=== PATIENT | male | born 1940 | race Caucasian/White ===

== ENCOUNTER 2017-12-11 08:36 | Inpatient (IN) | payer MEDICARE, MEDICAID ==
[2017-12-11] VITALS (11 sets, daily range): BP systolic 101–140; BP diastolic 50–84
[~2017-12-11] VITALS: Ht 157.5 cm; Wt 65.9 kg
[~2017-12-11 08:36] MED LIST: ALBU2.5V13 NEB; ATR0.5NEB NEB; LEVO150T8 PO; PANT40TA4 PO; SERT100T10 PO; SIMV20TA5 PO; SPIIN IH; TRAM50TA2 PO; WARF1TAB83 PO
[2017-12-11 09:19] LABS: BASOPHILS % (AUTO) 0.1 % (0-1); EOSINOPHILS # (AUTO) 0.1 X10'3 (0-0.9); EOSINOPHILS % (AUTO) 0.4 % (0-6); LYMPHOCYTES # (AUTO) 1.4 X10'3 (1.1-4.8); LYMPHOCYTES % (AUTO) 10.9 % (21-51); MEAN CORPUSCULAR HEMOGLOBIN 42.9 PG (27.0-31.0); MEAN CORPUSCULAR HGB CONC 32.6 % (33.0-36.5); MEAN CORPUSCULAR VOLUME 131.5 FL (78-98); MEAN PLATELET VOLUME 8.1 FL (7.4-10.4); MONOCYTES # (AUTO) 0.4 X10'3 (0-0.9); MONOCYTES % (AUTO) 3.1 % (2-12); NEUTROPHILS # (AUTO) 11.3 X10'3 (1.8-7.7); NEUTROPHILS % (AUTO) 85.5 % (42-75); PLATELET COUNT 353 X10'3 (140-440); RED BLOOD COUNT 1.62 X10'6 (4.70-6.10); RED CELL DISTRIBUTION WIDTH 24.8 % (11.5-14.5); WHITE BLOOD COUNT 13.2 X10'3 (4.5-11.0)
[2017-12-11 09:24] LABS: HEMATOCRIT 21.3 % (42.0-52.0); HEMOGLOBIN 6.9 g/dl (14.0-17.9)
[2017-12-11] MEDS ORDERED: normal saline 1000ML IV soln IV ONE (09:30)
[2017-12-11] MEDS ORDERED: pantoprazole IV 80 MG in normal saline 100ml IV soln 100 ML IV ONE (09:30)
[2017-12-11 09:40] LABS: ALANINE AMINOTRANSFERASE 21 U/L (12-78); ALBUMIN 2.6 G/DL (3.4-5.0); ALBUMIN/GLOBULIN RATIO 0.8 (1.1-1.5); ALKALINE PHOSPHATASE 151 IU/L (46-116); ANION GAP 17 (8-16); ASPARTATE AMINO TRANSFERASE 28 U/L (10-37); BILIRUBIN,TOTAL 1.9 MG/DL (0.1-1.0); BLOOD UREA NITROGEN 22 MG/DL (7-18); BUN/CREATININE RATIO 14.2 (5.4-32.0); CHLORIDE 106 MMOL/L (99-107); CREATININE 1.55 MG/DL (0.60-1.10); GLUCOSE 136 MG/DL (70-104); SODIUM 143 MMOL/L (135-145); TOTAL CARBON DIOXIDE 20.2 MMOL/L (24-32); TOTAL PROTEIN 5.9 G/DL (6.4-8.2); eGFR 43 ML/MIN
[2017-12-11 09:45] LABS: CALCIUM 5.7 MG/DL (8.5-10.1); POTASSIUM 2.8 MMOL/L (3.5-5.1)
[2017-12-11 09:57] LABS: NUCLEATED RED BLOOD CELLS 1 /100WBC (0-0); TOTAL CELLS COUNTED 100
[2017-12-11 10:08] LABS: ANISOCYTOSIS 3+; PLATELET ESTIMATE NORMAL; POIKILOCYTOSIS 2+; TEAR DROP CELLS 2+
[2017-12-11 10:09] LABS: ELLIPTOCYTES 1+; POLYCHROMASIA 1+; SCHISTOCYTES 2+
[2017-12-11 10:10] LABS: HYPOCHROMASIA 1+; MICROCYTOSIS 2+
[2017-12-11 10:11] LABS: TOXIC GRANULATION 1+
[2017-12-11 10:13] LABS: GIANT PLATELET FEW
[2017-12-11 10:16] LABS: PROTHROMBIN TIME 132.4 SECONDS (9.0-12.0)
[2017-12-11 10:17] LABS: INR > 9.0 INR; PARTIAL THROMBOPLASTIN TIME 89 SECONDS (22-32)
[2017-12-11] MEDS ORDERED: potassium 10mEq/100ml NS w/LIDOcaine (10mg/bag) IV ONE (10:25)
[2017-12-11] MEDS ORDERED: thiamine inj. 100 MG in normal saline 100ml IV soln 100 ML IV ONE (10:25)
[2017-12-11] MEDS: magnesium 1gm/100ml D5W IVPB 100 ML IV SCH ×2 (10:27→11:42)
[2017-12-11] MEDS: pantoprazole 40MG/NS 100ML BAG 100 ML IV SCH ×2 (10:27→10:58)
[2017-12-11] MEDS ORDERED: CefTRIAXone 2gm/D5W 50ml 50 ML IV ONE (10:55)
[2017-12-11] MEDS ORDERED: vancomycin/NS 1 GM ADD-VANTAGE 250 ML X 1 DOSE IV ONE (11:10)
[2017-12-11] MEDS ORDERED: calcium chloride 100 MG/1 ML inj IV ONE (11:20)
[2017-12-11 11:44] LABS: OCCULT BLOOD STOOL NEGATIVE (Neg)
[2017-12-11] MEDS ORDERED: calcium chloride inj. 1,000 MG in normal saline 100ml IV soln 90 ML IV ONE (11:55)
[2017-12-11] MEDS ORDERED: acetaminophen 325mg tablet PO PRN (12:30)
[2017-12-11] MEDS ORDERED: potassium Cl 40MEQ/NS 500ml 500 ML IV PRN (12:30)
[2017-12-11] MEDS ORDERED: potassium Cl 20 mEq SR tablet PO PRN (12:30)
[2017-12-11] MEDS ORDERED: magnesium 4gm in 100ml NS 100 ML IV PRN (12:30)
[2017-12-11] MEDS ORDERED: magnesium 1gm/100ml D5W IVPB 100 ML IV PRN (12:30)
[2017-12-11] MEDS: normal saline 1000ml 1,000 ML IV SCH (13:02)
[2017-12-11] MEDS: albuterol 2.5 MG/3 ML nebule NEB SCH ×2 (15:10→20:18)
[2017-12-11 17:38] LABS: BASOPHILS % (AUTO) 0 % (0-1); EOSINOPHILS % (AUTO) 0.3 % (0-6); HEMATOCRIT 25.1 % (42.0-52.0); HEMOGLOBIN 8.4 g/dl (14.0-17.9); LYMPHOCYTES # (AUTO) 1.1 X10'3 (1.1-4.8); LYMPHOCYTES % (AUTO) 11.1 % (21-51); MEAN CORPUSCULAR HEMOGLOBIN 35.4 PG (27.0-31.0); MEAN CORPUSCULAR HGB CONC 33.2 % (33.0-36.5); MEAN CORPUSCULAR VOLUME 106.7 FL (78-98); MONOCYTES # (AUTO) 0.4 X10'3 (0-0.9); MONOCYTES % (AUTO) 3.8 % (2-12); NEUTROPHILS # (AUTO) 8.3 X10'3 (1.8-7.7); NEUTROPHILS % (AUTO) 84.8 % (42-75); PLATELET COUNT 289 X10'3 (140-440); RED BLOOD COUNT 2.36 X10'6 (4.70-6.10); RED CELL DISTRIBUTION WIDTH 37.1 % (11.5-14.5); WHITE BLOOD COUNT 9.8 X10'3 (4.5-11.0)
[2017-12-11 17:44] LABS: ALBUMIN 2.4 G/DL (3.4-5.0); ANION GAP 15 (8-16); BLOOD UREA NITROGEN 17 MG/DL (7-18); BUN/CREATININE RATIO 11.4 (5.4-32.0); CALCIUM 6.3 MG/DL (8.5-10.1); CHLORIDE 112 MMOL/L (99-107); CREATININE 1.49 MG/DL (0.60-1.10); GLUCOSE 122 MG/DL (70-104); MAGNESIUM 1.3 MG/DL (1.5-2.4); SODIUM 149 MMOL/L (135-145); TOTAL CARBON DIOXIDE 22.1 MMOL/L (24-32); eGFR 45 ML/MIN
[2017-12-11 17:46] LABS: POTASSIUM 2.7 MMOL/L (3.5-5.1)
[2017-12-11 18:47] LABS: ANISOCYTOSIS 3+; PLATELET ESTIMATE NORMAL
[2017-12-11 18:49] LABS: BURR CELLS FEW; SCHISTOCYTES 1+
[2017-12-11 18:52] LABS: TARGET CELLS FEW
[2017-12-11 18:53] LABS: ELLIPTOCYTES 1+
[2017-12-11 18:57] LABS: HYPOCHROMASIA 1+; POLYCHROMASIA FEW
[2017-12-11 18:58] LABS: MICROCYTOSIS 2+
[2017-12-11 18:59] LABS: POIKILOCYTOSIS 2+
[2017-12-11] MEDS: potassium Cl 40MEQ/NS 500ml 500 ML IV PRN (19:03)
[2017-12-11] MEDS ORDERED: temazepam 15mg capsule PO PRN (21:00)
[2017-12-11] MEDS: sertraline 50mg tablet PO SCH (21:16)
[2017-12-11] MEDS: ondansetron/PF 4mg/2ml inj IV PRN (23:41)
[2017-12-11] MEDS: magnesium Cl slow-release 64mg tablet PO PRN (23:41)
[2017-12-12] MEDS: albuterol 2.5 MG/3 ML nebule NEB SCH ×4 (02:39→20:40)
[2017-12-12 03:00] VITALS: BP 108/44
[2017-12-12 05:15] LABS: BASOPHILS % (AUTO) 0.2 % (0-1); EOSINOPHILS # (AUTO) 0.1 X10'3 (0-0.9); EOSINOPHILS % (AUTO) 0.7 % (0-6); HEMATOCRIT 26.4 % (42.0-52.0); HEMOGLOBIN 8.8 g/dl (14.0-17.9); LYMPHOCYTES # (AUTO) 1.4 X10'3 (1.1-4.8); LYMPHOCYTES % (AUTO) 13.5 % (21-51); MEAN CORPUSCULAR HEMOGLOBIN 35.7 PG (27.0-31.0); MEAN CORPUSCULAR HGB CONC 33.2 % (33.0-36.5); MEAN CORPUSCULAR VOLUME 107.7 FL (78-98); MEAN PLATELET VOLUME 7.9 FL (7.4-10.4); MONOCYTES # (AUTO) 0.4 X10'3 (0-0.9); MONOCYTES % (AUTO) 3.3 % (2-12); NEUTROPHILS # (AUTO) 8.7 X10'3 (1.8-7.7); NEUTROPHILS % (AUTO) 82.3 % (42-75); PLATELET COUNT 292 X10'3 (140-440); RED BLOOD COUNT 2.45 X10'6 (4.70-6.10); RED CELL DISTRIBUTION WIDTH 38.1 % (11.5-14.5); WHITE BLOOD COUNT 10.5 X10'3 (4.5-11.0)
[2017-12-12 05:29] LABS: INR 3.3 INR; PROTHROMBIN TIME 31.7 SECONDS (9.0-12.0)
[2017-12-12 05:48] LABS: ALANINE AMINOTRANSFERASE 23 U/L (12-78); ALBUMIN 2.5 G/DL (3.4-5.0); ALBUMIN/GLOBULIN RATIO 0.8 (1.1-1.5); ALKALINE PHOSPHATASE 138 IU/L (46-116); ANION GAP 17 (8-16); ASPARTATE AMINO TRANSFERASE 29 U/L (10-37); BILIRUBIN,TOTAL 1.3 MG/DL (0.1-1.0); BLOOD UREA NITROGEN 16 MG/DL (7-18); BUN/CREATININE RATIO 10.7 (5.4-32.0); CALCIUM 6.3 MG/DL (8.5-10.1); CHLORIDE 114 MMOL/L (99-107); GLUCOSE 118 MG/DL (70-104); MAGNESIUM 1.3 MG/DL (1.5-2.4); SODIUM 150 MMOL/L (135-145); TOTAL CARBON DIOXIDE 19.1 MMOL/L (24-32); TOTAL PROTEIN 5.7 G/DL (6.4-8.2); eGFR 45 ML/MIN
[2017-12-12 05:51] LABS: POTASSIUM 2.7 MMOL/L (3.5-5.1)
[2017-12-12] MEDS: magnesium Cl slow-release 64mg tablet PO PRN ×2 (06:02→10:24)
[2017-12-12] MEDS: potassium Cl 20 mEq SR tablet PO PRN ×2 (06:02→10:24)
[2017-12-12 07:30] LABS: PLATELET ESTIMATE NORMAL
[2017-12-12 07:31] LABS: ANISOCYTOSIS 3+; POIKILOCYTOSIS FEW; POLYCHROMASIA 2+; TEAR DROP CELLS FEW
[2017-12-12] MEDS: K and/or MAG REPLACEMENT MC SCH (08:00)
[2017-12-12] MEDS: normal saline 1000ml 1,000 ML IV SCH (08:07)
[2017-12-12] MEDS: CefTRIAXone 2gm/D5W 50ml 50 ML IV SCH (08:41)
[2017-12-12] MEDS: pantoprazole 40 MG vial IV SCH (08:41)
[2017-12-12] MEDS ORDERED: pneumococcal 23-VAL P-sac vacc 25 mcg/0.5ml vial IMVAC ONE (10:00)
[2017-12-12 11:00] VITALS: BP 118/64
[2017-12-12] MEDS: sodium chloride 0.45% 1,000 ML IV SCH (13:10)
[2017-12-12] MEDS: ondansetron/PF 4mg/2ml inj IV PRN ×2 (13:58→20:00)
[2017-12-12] MEDS: potassium Cl 40MEQ/NS 500ml 500 ML IV PRN ×2 (14:06→19:45)
[2017-12-12 15:26] LABS: BASOPHILS % (AUTO) 0.3 % (0-1); EOSINOPHILS # (AUTO) 0.1 X10'3 (0-0.9); EOSINOPHILS % (AUTO) 0.7 % (0-6); HEMATOCRIT 26.7 % (42.0-52.0); HEMOGLOBIN 8.9 g/dl (14.0-17.9); LYMPHOCYTES # (AUTO) 1.2 X10'3 (1.1-4.8); LYMPHOCYTES % (AUTO) 11.3 % (21-51); MEAN CORPUSCULAR HEMOGLOBIN 36.1 PG (27.0-31.0); MEAN CORPUSCULAR HGB CONC 33.4 % (33.0-36.5); MEAN CORPUSCULAR VOLUME 108.1 FL (78-98); MEAN PLATELET VOLUME 8.1 FL (7.4-10.4); MONOCYTES # (AUTO) 0.3 X10'3 (0-0.9); MONOCYTES % (AUTO) 3.3 % (2-12); NEUTROPHILS # (AUTO) 8.7 X10'3 (1.8-7.7); NEUTROPHILS % (AUTO) 84.4 % (42-75); PLATELET COUNT 310 X10'3 (140-440); RED BLOOD COUNT 2.47 X10'6 (4.70-6.10); RED CELL DISTRIBUTION WIDTH 38.8 % (11.5-14.5); WHITE BLOOD COUNT 10.3 X10'3 (4.5-11.0)
[2017-12-12 15:48] LABS: PLATELET ESTIMATE NORMAL; TOTAL CELLS COUNTED 100
[2017-12-12 15:49] LABS: ANISOCYTOSIS 3+; BURR CELLS FEW; ELLIPTOCYTES FEW; POLYCHROMASIA 1+; SCHISTOCYTES FEW
[2017-12-12 16:22] VITALS: BP 135/63
[2017-12-12 19:00] VITALS: BP 136/71
[2017-12-12] MEDS: lactobacillus rhamnosus 10,000 MMU CELLS/CAPSULE PO SCH (21:14)
[2017-12-12] MEDS: sertraline 50mg tablet PO SCH (21:14)
[2017-12-12 21:55] LABS: MAGNESIUM 1.3 MG/DL (1.5-2.4)
[2017-12-12 22:07] LABS: POTASSIUM 3.6 MMOL/L (3.5-5.1)
[2017-12-12 23:00] VITALS: BP 129/76
[2017-12-13] MEDS: albuterol 2.5 MG/3 ML nebule NEB SCH ×4 (02:38→21:05)
[2017-12-13 03:00] VITALS: BP 184/99
[2017-12-13] MEDS: sodium chloride 0.45% 1,000 ML IV SCH ×2 (03:03→17:50)
[2017-12-13 06:00] VITALS: BP 168/89
[2017-12-13 06:00] LABS: BASOPHILS % (AUTO) 0.3 % (0-1); EOSINOPHILS # (AUTO) 0.1 X10'3 (0-0.9); EOSINOPHILS % (AUTO) 0.7 % (0-6); HEMATOCRIT 27.5 % (42.0-52.0); HEMOGLOBIN 9.1 g/dl (14.0-17.9); LYMPHOCYTES # (AUTO) 1.4 X10'3 (1.1-4.8); LYMPHOCYTES % (AUTO) 13.7 % (21-51); MEAN CORPUSCULAR HEMOGLOBIN 35.7 PG (27.0-31.0); MEAN CORPUSCULAR VOLUME 108.1 FL (78-98); MEAN PLATELET VOLUME 8.1 FL (7.4-10.4); MONOCYTES # (AUTO) 0.3 X10'3 (0-0.9); MONOCYTES % (AUTO) 3.5 % (2-12); NEUTROPHILS # (AUTO) 8.2 X10'3 (1.8-7.7); NEUTROPHILS % (AUTO) 81.8 % (42-75); PLATELET COUNT 310 X10'3 (140-440); RED BLOOD COUNT 2.55 X10'6 (4.70-6.10); RED CELL DISTRIBUTION WIDTH 38.5 % (11.5-14.5)
[2017-12-13 06:36] LABS: ALANINE AMINOTRANSFERASE 18 U/L (12-78); ALBUMIN 2.5 G/DL (3.4-5.0); ALBUMIN/GLOBULIN RATIO 0.7 (1.1-1.5); ALKALINE PHOSPHATASE 139 IU/L (46-116); ANION GAP 14 (8-16); ASPARTATE AMINO TRANSFERASE 25 U/L (10-37); BLOOD UREA NITROGEN 13 MG/DL (7-18); BUN/CREATININE RATIO 10.2 (5.4-32.0); CALCIUM 7.4 MG/DL (8.5-10.1); CHLORIDE 120 MMOL/L (99-107); CREATININE 1.28 MG/DL (0.60-1.10); GLUCOSE 93 MG/DL (70-104); INR 2.3 INR; MAGNESIUM 1.4 MG/DL (1.5-2.4); POTASSIUM 3.9 MMOL/L (3.5-5.1); SODIUM 152 MMOL/L (135-145); TOTAL CARBON DIOXIDE 18.5 MMOL/L (24-32); TOTAL PROTEIN 5.9 G/DL (6.4-8.2); eGFR 54 ML/MIN
[2017-12-13] MEDS: K and/or MAG REPLACEMENT MC SCH (08:00)
[2017-12-13 08:12] LABS: ANISOCYTOSIS 3+; HYPERSEGMENTED NEUTROPHILS FEW; NUCLEATED RED BLOOD CELLS 1 /100WBC (0-0); PLATELET ESTIMATE NORMAL; TOTAL CELLS COUNTED 100
[2017-12-13 08:13] LABS: BURR CELLS 1+; ELLIPTOCYTES 1+; POLYCHROMASIA 1+; SCHISTOCYTES FEW; TOXIC GRANULATION 3+
[2017-12-13] MEDS: CefTRIAXone 2gm/D5W 50ml 50 ML IV SCH (08:41)
[2017-12-13] MEDS: pantoprazole 40 MG vial IV SCH (08:41)
[2017-12-13] MEDS: lactobacillus rhamnosus 10,000 MMU CELLS/CAPSULE PO SCH ×2 (08:42→21:18)
[2017-12-13] MEDS: magnesium Cl slow-release 64mg tablet PO PRN ×2 (10:57→21:18)
[2017-12-13 15:00] VITALS: BP_SYST 120; BP_SYST 121; BP_DIAS 61; BP_DIAS 69
[2017-12-13 16:06] LABS: BASOPHILS % (AUTO) 0.2 % (0-1); EOSINOPHILS # (AUTO) 0.2 X10'3 (0-0.9); EOSINOPHILS % (AUTO) 2.2 % (0-6); HEMOGLOBIN 8.5 g/dl (14.0-17.9); LYMPHOCYTES # (AUTO) 1.4 X10'3 (1.1-4.8); LYMPHOCYTES % (AUTO) 15.1 % (21-51); MEAN CORPUSCULAR HEMOGLOBIN 35.1 PG (27.0-31.0); MEAN CORPUSCULAR HGB CONC 32.5 % (33.0-36.5); MEAN CORPUSCULAR VOLUME 108.2 FL (78-98); MEAN PLATELET VOLUME 7.8 FL (7.4-10.4); MONOCYTES # (AUTO) 0.3 X10'3 (0-0.9); MONOCYTES % (AUTO) 2.8 % (2-12); NEUTROPHILS # (AUTO) 7.3 X10'3 (1.8-7.7); NEUTROPHILS % (AUTO) 79.7 % (42-75); PLATELET COUNT 307 X10'3 (140-440); RED BLOOD COUNT 2.41 X10'6 (4.70-6.10); RED CELL DISTRIBUTION WIDTH 38.4 % (11.5-14.5); WHITE BLOOD COUNT 9.1 X10'3 (4.5-11.0)
[2017-12-13 19:00] VITALS: BP 131/64
[2017-12-13] MEDS: diatr meglu/diatrizoate 30ml oral sol.-(3 dose) bottle PO SCH (21:18)
[2017-12-13] MEDS: sertraline 50mg tablet PO SCH (21:18)
[2017-12-13 22:56] VITALS: BP 144/77
[2017-12-14] MEDS: albuterol 2.5 MG/3 ML nebule NEB SCH ×4 (02:00→20:22)
[2017-12-14 03:00] VITALS: BP 121/65
[2017-12-14 06:00] VITALS: BP 110/71
[2017-12-14] MEDS: CefTRIAXone 2gm/D5W 50ml 50 ML IV SCH (07:07)
[2017-12-14] MEDS: diatr meglu/diatrizoate 30ml oral sol.-(3 dose) bottle PO SCH ×2 (07:09→09:37)
[2017-12-14] MEDS: pantoprazole 40mg Tablet.DR PO SCH (07:11)
[2017-12-14] MEDS: lactobacillus rhamnosus 10,000 MMU CELLS/CAPSULE PO SCH ×2 (07:11→20:43)
[2017-12-14] MEDS: K and/or MAG REPLACEMENT MC SCH (07:21)
[2017-12-14 07:59] LABS: BASOPHILS % (AUTO) 0.1 % (0-1); EOSINOPHILS # (AUTO) 0.2 X10'3 (0-0.9); EOSINOPHILS % (AUTO) 2.5 % (0-6); HEMATOCRIT 29.2 % (42.0-52.0); HEMOGLOBIN 9.7 g/dl (14.0-17.9); LYMPHOCYTES # (AUTO) 1.7 X10'3 (1.1-4.8); LYMPHOCYTES % (AUTO) 17.4 % (21-51); MEAN CORPUSCULAR HEMOGLOBIN 36.3 PG (27.0-31.0); MEAN CORPUSCULAR HGB CONC 33.2 % (33.0-36.5); MEAN CORPUSCULAR VOLUME 109.1 FL (78-98); MONOCYTES # (AUTO) 0.3 X10'3 (0-0.9); NEUTROPHILS # (AUTO) 7.4 X10'3 (1.8-7.7); PLATELET COUNT 329 X10'3 (140-440); RED BLOOD COUNT 2.68 X10'6 (4.70-6.10); RED CELL DISTRIBUTION WIDTH 38.1 % (11.5-14.5); WHITE BLOOD COUNT 9.6 X10'3 (4.5-11.0)
[2017-12-14 08:14] LABS: ALANINE AMINOTRANSFERASE 22 U/L (12-78); ALBUMIN 2.5 G/DL (3.4-5.0); ALBUMIN/GLOBULIN RATIO 0.7 (1.1-1.5); ALKALINE PHOSPHATASE 143 IU/L (46-116); ANION GAP 12 (8-16); ASPARTATE AMINO TRANSFERASE 23 U/L (10-37); BLOOD UREA NITROGEN 8 MG/DL (7-18); BUN/CREATININE RATIO 7.3 (5.4-32.0); CALCIUM 7.4 MG/DL (8.5-10.1); CHLORIDE 114 MMOL/L (99-107); CREATININE 1.09 MG/DL (0.60-1.10); GLUCOSE 91 MG/DL (70-104); MAGNESIUM 1.3 MG/DL (1.5-2.4); SODIUM 147 MMOL/L (135-145); TOTAL CARBON DIOXIDE 20.6 MMOL/L (24-32); TOTAL PROTEIN 5.9 G/DL (6.4-8.2); eGFR 65 ML/MIN
[2017-12-14 08:56] LABS: INR 1.7 INR; PROTHROMBIN TIME 17.2 SECONDS (9.0-12.0)
[2017-12-14 09:14] LABS: ANISOCYTOSIS 3+; PLATELET ESTIMATE NORMAL; TOTAL CELLS COUNTED 100
[2017-12-14 09:15] LABS: POIKILOCYTOSIS 1+; POLYCHROMASIA FEW; SCHISTOCYTES FEW
[2017-12-14] MEDS: magnesium Cl slow-release 64mg tablet PO PRN (09:22)
[2017-12-14] MEDS: sodium chloride 0.45% 1,000 ML IV SCH ×2 (09:26→22:22)
[2017-12-14] MEDS ORDERED: iohexol 300mg/ml 100ml inj. ONE (09:36)
[2017-12-14] MEDS: LIDOcaine 1% 30ml vial 5 ML in potassium Cl 40MEQ/NS 500ml 500 ML IV PRN ×2 (10:56→14:55)
[2017-12-14 11:00] VITALS: BP 131/94
[2017-12-14 15:00] VITALS: BP 127/85
[2017-12-14 19:00] VITALS: BP 120/90
[2017-12-14] MEDS: sertraline 50mg tablet PO SCH (20:39)
[2017-12-14] MEDS ORDERED: warfarin 7.5mg tablet PO ONE (21:00)
[2017-12-14 23:00] VITALS: BP 126/72
[2017-12-15] MEDS: albuterol 2.5 MG/3 ML nebule NEB SCH ×4 (02:00→20:00)
[2017-12-15 03:00] VITALS: BP 147/84
[2017-12-15 06:43] VITALS: BP 148/83
[2017-12-15] MEDS: pantoprazole 40mg Tablet.DR PO SCH (07:13)
[2017-12-15] MEDS: lactobacillus rhamnosus 10,000 MMU CELLS/CAPSULE PO SCH ×2 (07:13→21:02)
[2017-12-15] MEDS: CefTRIAXone 2gm/D5W 50ml 50 ML IV SCH (07:13)
[2017-12-15 07:17] LABS: INR 1.6 INR; PROTHROMBIN TIME 15.4 SECONDS (9.0-12.0)
[2017-12-15] MEDS: K and/or MAG REPLACEMENT MC SCH (08:00)
[2017-12-15 08:16] LABS: ANION GAP 13 (8-16); BLOOD UREA NITROGEN 7 MG/DL (7-18); BUN/CREATININE RATIO 7.5 (5.4-32.0); CHLORIDE 116 MMOL/L (99-107); CREATININE 0.93 MG/DL (0.60-1.10); GLUCOSE 90 MG/DL (70-104); POTASSIUM 3.3 MMOL/L (3.5-5.1); SODIUM 147 MMOL/L (135-145); TOTAL CARBON DIOXIDE 17.6 MMOL/L (24-32)
[2017-12-15 08:17] LABS: ALANINE AMINOTRANSFERASE 19 U/L (12-78); ALBUMIN 2.5 G/DL (3.4-5.0); ALBUMIN/GLOBULIN RATIO 0.8 (1.1-1.5); ALKALINE PHOSPHATASE 135 IU/L (46-116); ASPARTATE AMINO TRANSFERASE 22 U/L (10-37); BILIRUBIN,TOTAL 1.1 MG/DL (0.1-1.0); CALCIUM 7.4 MG/DL (8.5-10.1); MAGNESIUM 1.4 MG/DL (1.5-2.4); TOTAL PROTEIN 5.7 G/DL (6.4-8.2); eGFR 78 ML/MIN
[2017-12-15] MEDS ORDERED: potassium Cl 20 mEq SR tablet PO PRN (08:30)
[2017-12-15] MEDS ORDERED: potassium Cl 40MEQ/NS 500ml 500 ML IV PRN ×2 (08:30)
[2017-12-15] MEDS ORDERED: magnesium 4gm in 100ml NS 100 ML IV PRN (08:30)
[2017-12-15] MEDS ORDERED: magnesium 1gm/100ml D5W IVPB 100 ML IV PRN (08:30)
[2017-12-15] MEDS: magnesium Cl slow-release 64mg tablet PO PRN (09:02)
[2017-12-15 11:00] VITALS: BP 98/67
[2017-12-15] MEDS: metoclopramide 10mg tablet PO SCH ×3 (12:25→21:03)
[2017-12-15] MEDS: sodium chloride 0.45% 1,000 ML IV SCH (12:53)
[2017-12-15] MEDS ORDERED: WARF-65 PO (14:38)
[2017-12-15] MEDS: sodium bicarbonate (8.4%) inj. 50 MEQ in dextrose 5%-water 1,000 ML IV SCH (14:42)
[2017-12-15 15:00] VITALS: BP 114/72
[2017-12-15 19:00] VITALS: BP 153/97
[2017-12-15] MEDS ORDERED: warfarin 5mg tablet PO ONE (21:00)
[2017-12-15] MEDS: sertraline 50mg tablet PO SCH (21:03)
[2017-12-15 23:00] VITALS: BP 145/88
[2017-12-16] MEDS: albuterol 2.5 MG/3 ML nebule NEB SCH ×4 (02:00→20:00)
[2017-12-16] MEDS: sodium bicarbonate (8.4%) inj. 50 MEQ in dextrose 5%-water 1,000 ML IV SCH ×3 (02:03→22:18)
[2017-12-16] MEDS: magnesium Cl slow-release 64mg tablet PO PRN ×3 (02:27→22:20)
[2017-12-16 03:00] VITALS: BP 151/82
[2017-12-16 06:00] VITALS: BP 159/82
[2017-12-16 06:13] LABS: BASOPHILS % (AUTO) 0 % (0-1); EOSINOPHILS # (AUTO) 0.3 X10'3 (0-0.9); EOSINOPHILS % (AUTO) 3.1 % (0-6); HEMATOCRIT 26.7 % (42.0-52.0); HEMOGLOBIN 8.7 g/dl (14.0-17.9); LYMPHOCYTES # (AUTO) 1.2 X10'3 (1.1-4.8); MEAN CORPUSCULAR HEMOGLOBIN 35.2 PG (27.0-31.0); MEAN CORPUSCULAR HGB CONC 32.7 % (33.0-36.5); MEAN CORPUSCULAR VOLUME 107.7 FL (78-98); MEAN PLATELET VOLUME 7.9 FL (7.4-10.4); MONOCYTES # (AUTO) 0.3 X10'3 (0-0.9); MONOCYTES % (AUTO) 2.8 % (2-12); NEUTROPHILS # (AUTO) 8.9 X10'3 (1.8-7.7); NEUTROPHILS % (AUTO) 83.1 % (42-75); PLATELET COUNT 312 X10'3 (140-440); RED BLOOD COUNT 2.48 X10'6 (4.70-6.10); RED CELL DISTRIBUTION WIDTH 37.3 % (11.5-14.5); WHITE BLOOD COUNT 10.7 X10'3 (4.5-11.0)
[2017-12-16 06:38] LABS: INR 2.8 INR; PROTHROMBIN TIME 26.9 SECONDS (9.0-12.0)
[2017-12-16 06:40] LABS: ANISOCYTOSIS 3+; MICROCYTOSIS 1+; PLATELET ESTIMATE NORMAL
[2017-12-16 06:41] LABS: POLYCHROMASIA 1+
[2017-12-16 06:51] LABS: ALANINE AMINOTRANSFERASE 20 U/L (12-78); ALBUMIN 2.4 G/DL (3.4-5.0); ALBUMIN/GLOBULIN RATIO 0.8 (1.1-1.5); ALKALINE PHOSPHATASE 126 IU/L (46-116); ANION GAP 11 (8-16); ASPARTATE AMINO TRANSFERASE 20 U/L (10-37); BILIRUBIN,TOTAL 0.8 MG/DL (0.1-1.0); BLOOD UREA NITROGEN 6 MG/DL (7-18); BUN/CREATININE RATIO 6.3 (5.4-32.0); CALCIUM 7.6 MG/DL (8.5-10.1); CHLORIDE 113 MMOL/L (99-107); CREATININE 0.95 MG/DL (0.60-1.10); GLUCOSE 97 MG/DL (70-104); MAGNESIUM 1.3 MG/DL (1.5-2.4); POTASSIUM 3.1 MMOL/L (3.5-5.1); SODIUM 142 MMOL/L (135-145); TOTAL CARBON DIOXIDE 17.8 MMOL/L (24-32); TOTAL PROTEIN 5.4 G/DL (6.4-8.2); eGFR 76 ML/MIN
[2017-12-16] MEDS: K and/or MAG REPLACEMENT MC SCH (07:03)
[2017-12-16] MEDS: CefTRIAXone 2gm/D5W 50ml 50 ML IV SCH (07:24)
[2017-12-16] MEDS: potassium Cl 20 mEq SR tablet PO PRN ×2 (07:24→22:20)
[2017-12-16] MEDS: lactobacillus rhamnosus 10,000 MMU CELLS/CAPSULE PO SCH ×2 (07:24→22:20)
[2017-12-16] MEDS: metoclopramide 10mg tablet PO SCH ×4 (07:24→22:18)
[2017-12-16] MEDS: pantoprazole 40mg Tablet.DR PO SCH (07:25)
[2017-12-16] MEDS: magnesium oxide 400mg tablet PO SCH ×2 (08:45→22:21)
[2017-12-16] MEDS: potassium Cl 20 mEq SR tablet PO SCH ×2 (08:45→17:14)
[2017-12-16 11:00] VITALS: BP 126/72
[2017-12-16 15:00] VITALS: BP 142/75
[2017-12-16 19:00] VITALS: BP 118/74
[2017-12-16] MEDS: sertraline 50mg tablet PO SCH (22:20)
[2017-12-16 23:00] VITALS: BP 117/76
[2017-12-17] MEDS: albuterol 2.5 MG/3 ML nebule NEB SCH ×2 (02:00→07:45)
[2017-12-17 03:00] VITALS: BP 144/78
[2017-12-17 05:58] LABS: BASOPHILS % (AUTO) 0.1 % (0-1); EOSINOPHILS # (AUTO) 0.2 X10'3 (0-0.9); EOSINOPHILS % (AUTO) 1.4 % (0-6); HEMATOCRIT 26.6 % (42.0-52.0); HEMOGLOBIN 8.9 g/dl (14.0-17.9); LYMPHOCYTES # (AUTO) 1.2 X10'3 (1.1-4.8); LYMPHOCYTES % (AUTO) 9.3 % (21-51); MEAN CORPUSCULAR HGB CONC 33.4 % (33.0-36.5); MEAN CORPUSCULAR VOLUME 107.6 FL (78-98); MEAN PLATELET VOLUME 8.2 FL (7.4-10.4); MONOCYTES # (AUTO) 0.3 X10'3 (0-0.9); MONOCYTES % (AUTO) 2.1 % (2-12); NEUTROPHILS # (AUTO) 11.2 X10'3 (1.8-7.7); NEUTROPHILS % (AUTO) 87.1 % (42-75); PLATELET COUNT 327 X10'3 (140-440); RED BLOOD COUNT 2.47 X10'6 (4.70-6.10); RED CELL DISTRIBUTION WIDTH 36.6 % (11.5-14.5); WHITE BLOOD COUNT 12.8 X10'3 (4.5-11.0)
[2017-12-17 06:17] LABS: PROTHROMBIN TIME 38.1 SECONDS (9.0-12.0)
[2017-12-17 06:50] LABS: PLATELET ESTIMATE NORMAL
[2017-12-17 06:51] LABS: ANISOCYTOSIS 3+; HYPOCHROMASIA 1+; MICROCYTOSIS 1+; SCHISTOCYTES 1+
[2017-12-17 07:00] VITALS: BP 133/68
[2017-12-17] MEDS: metoclopramide 10mg tablet PO SCH (08:17)
[2017-12-17] MEDS: potassium Cl 20 mEq SR tablet PO SCH ×2 (08:17→17:47)
[2017-12-17] MEDS: sodium bicarbonate (8.4%) inj. 50 MEQ in dextrose 5%-water 1,000 ML IV SCH ×2 (08:17→19:00)
[2017-12-17] MEDS: K and/or MAG REPLACEMENT MC SCH (08:18)
[2017-12-17] MEDS: magnesium oxide 400mg tablet PO SCH ×2 (08:18→20:15)
[2017-12-17] MEDS: CefTRIAXone 2gm/D5W 50ml 50 ML IV SCH (08:18)
[2017-12-17] MEDS: pantoprazole 40mg Tablet.DR PO SCH (08:18)
[2017-12-17] MEDS: lactobacillus rhamnosus 10,000 MMU CELLS/CAPSULE PO SCH ×2 (08:18→20:25)
[2017-12-17] MEDS ORDERED: albuterol 2.5 MG/3 ML nebule NEB PRN (09:50)
[2017-12-17 11:00] VITALS: BP 117/65
[2017-12-17 15:00] VITALS: BP 131/67
[2017-12-17] MEDS: magnesium Cl slow-release 64mg tablet PO PRN (16:24)
[2017-12-17] MEDS: potassium Cl 20 mEq SR tablet PO PRN (16:24)
[2017-12-17 19:00] VITALS: BP 141/79
[2017-12-17] MEDS: sertraline 50mg tablet PO SCH (20:25)
[2017-12-17 23:00] VITALS: BP 144/79
[2017-12-18 03:00] VITALS: BP 122/78
[2017-12-18] MEDS: sodium bicarbonate (8.4%) inj. 50 MEQ in dextrose 5%-water 1,000 ML IV SCH ×2 (05:28→15:40)
[2017-12-18 05:56] LABS: BASOPHILS % (AUTO) 0.4 % (0-1); EOSINOPHILS # (AUTO) 0.2 X10'3 (0-0.9); EOSINOPHILS % (AUTO) 1.9 % (0-6); HEMATOCRIT 25.7 % (42.0-52.0); HEMOGLOBIN 8.6 g/dl (14.0-17.9); LYMPHOCYTES # (AUTO) 1.4 X10'3 (1.1-4.8); LYMPHOCYTES % (AUTO) 11.9 % (21-51); MEAN CORPUSCULAR HEMOGLOBIN 36.2 PG (27.0-31.0); MEAN CORPUSCULAR HGB CONC 33.4 % (33.0-36.5); MEAN CORPUSCULAR VOLUME 108.4 FL (78-98); MEAN PLATELET VOLUME 8.6 FL (7.4-10.4); MONOCYTES # (AUTO) 0.2 X10'3 (0-0.9); MONOCYTES % (AUTO) 1.6 % (2-12); NEUTROPHILS % (AUTO) 84.2 % (42-75); PLATELET COUNT 328 X10'3 (140-440); RED BLOOD COUNT 2.37 X10'6 (4.70-6.10); RED CELL DISTRIBUTION WIDTH 36.8 % (11.5-14.5); WHITE BLOOD COUNT 11.9 X10'3 (4.5-11.0)
[2017-12-18 06:00] VITALS: BP 131/70
[2017-12-18 06:02] LABS: INR 3.3 INR; PROTHROMBIN TIME 31.2 SECONDS (9.0-12.0)
[2017-12-18 07:47] LABS: ANISOCYTOSIS 3+; PLATELET ESTIMATE NORMAL
[2017-12-18 07:48] LABS: POLYCHROMASIA 1+
[2017-12-18 07:49] LABS: MICROCYTOSIS 1+; TEAR DROP CELLS FEW
[2017-12-18 07:50] LABS: SCHISTOCYTES 1+
[2017-12-18] MEDS: potassium Cl 20 mEq SR tablet PO SCH ×2 (07:51→17:18)
[2017-12-18] MEDS: magnesium oxide 400mg tablet PO SCH ×2 (07:51→21:14)
[2017-12-18] MEDS: pantoprazole 40mg Tablet.DR PO SCH (07:51)
[2017-12-18] MEDS: lactobacillus rhamnosus 10,000 MMU CELLS/CAPSULE PO SCH ×2 (07:51→21:14)
[2017-12-18] MEDS: CefTRIAXone 2gm/D5W 50ml 50 ML IV SCH (07:51)
[2017-12-18] MEDS: K and/or MAG REPLACEMENT MC SCH (08:00)
[2017-12-18 11:00] VITALS: BP 138/78
[2017-12-18] MEDS ORDERED: magnesium 1gm/100ml D5W IVPB 100 ML IV PRN (12:35)
[2017-12-18] MEDS ORDERED: magnesium 4gm in 100ml NS 100 ML IV PRN (12:35)
[2017-12-18] MEDS ORDERED: potassium Cl 40MEQ/NS 500ml 500 ML IV PRN ×2 (12:35)
[2017-12-18] MEDS ORDERED: potassium Cl 20 mEq SR tablet PO PRN (12:35)
[2017-12-18] MEDS ORDERED: magnesium Cl slow-release 64mg tablet PO PRN (12:35)
[2017-12-18 13:28] LABS: ALANINE AMINOTRANSFERASE 19 U/L (12-78); ALBUMIN 2.1 G/DL (3.4-5.0); ALBUMIN/GLOBULIN RATIO 0.7 (1.1-1.5); ALKALINE PHOSPHATASE 121 IU/L (46-116); ANION GAP 8 (8-16); ASPARTATE AMINO TRANSFERASE 25 U/L (10-37); BILIRUBIN,TOTAL 0.4 MG/DL (0.1-1.0); BLOOD UREA NITROGEN 9 MG/DL (7-18); BUN/CREATININE RATIO 7.9 (5.4-32.0); CALCIUM 7.9 MG/DL (8.5-10.1); CHLORIDE 110 MMOL/L (99-107); CREATININE 1.14 MG/DL (0.60-1.10); GLUCOSE 101 MG/DL (70-104); SODIUM 143 MMOL/L (135-145); TOTAL CARBON DIOXIDE 24.7 MMOL/L (24-32); eGFR 62 ML/MIN
[2017-12-18] MEDS: potassium Cl 20 mEq SR tablet PO PRN ×2 (13:43→21:14)
[2017-12-18 13:57] LABS: MAGNESIUM 1.2 MG/DL (1.5-2.4)
[2017-12-18 15:00] VITALS: BP 140/84
[2017-12-18 19:00] VITALS: BP 151/75
[2017-12-18] MEDS: sertraline 50mg tablet PO SCH (21:13)
[2017-12-18] MEDS: potassium cl 20mEq in 1/2 NS 1,000 ML IV SCH (21:14)
[2017-12-18 23:00] VITALS: BP 157/71
[2017-12-19 03:00] VITALS: BP 155/91
[2017-12-19] MEDS: potassium cl 20mEq in 1/2 NS 1,000 ML IV SCH ×3 (03:50→23:50)
[2017-12-19 06:00] VITALS: BP 152/88
[2017-12-19 07:03] LABS: BASOPHILS % (AUTO) 0 % (0-1); EOSINOPHILS # (AUTO) 0.4 X10'3 (0-0.9); EOSINOPHILS % (AUTO) 2.7 % (0-6); HEMOGLOBIN 8.4 g/dl (14.0-17.9); LYMPHOCYTES # (AUTO) 1.3 X10'3 (1.1-4.8); LYMPHOCYTES % (AUTO) 10.3 % (21-51); MEAN CORPUSCULAR HEMOGLOBIN 35.3 PG (27.0-31.0); MEAN CORPUSCULAR HGB CONC 32.5 % (33.0-36.5); MEAN CORPUSCULAR VOLUME 108.6 FL (78-98); MEAN PLATELET VOLUME 8.1 FL (7.4-10.4); MONOCYTES # (AUTO) 0.3 X10'3 (0-0.9); MONOCYTES % (AUTO) 2.2 % (2-12); NEUTROPHILS # (AUTO) 11.1 X10'3 (1.8-7.7); NEUTROPHILS % (AUTO) 84.8 % (42-75); PLATELET COUNT 354 X10'3 (140-440); RED BLOOD COUNT 2.39 X10'6 (4.70-6.10); RED CELL DISTRIBUTION WIDTH 36.7 % (11.5-14.5); WHITE BLOOD COUNT 13.1 X10'3 (4.5-11.0)
[2017-12-19 07:18] LABS: INR 2.3 INR; PROTHROMBIN TIME 22.6 SECONDS (9.0-12.0)
[2017-12-19 07:25] LABS: ALANINE AMINOTRANSFERASE 25 U/L (12-78); ALBUMIN 2.3 G/DL (3.4-5.0); ALBUMIN/GLOBULIN RATIO 0.8 (1.1-1.5); ALKALINE PHOSPHATASE 138 IU/L (46-116); ANION GAP 7 (8-16); ASPARTATE AMINO TRANSFERASE 30 U/L (10-37); BILIRUBIN,TOTAL 0.8 MG/DL (0.1-1.0); BLOOD UREA NITROGEN 8 MG/DL (7-18); BUN/CREATININE RATIO 7.2 (5.4-32.0); CALCIUM 7.9 MG/DL (8.5-10.1); CHLORIDE 112 MMOL/L (99-107); CREATININE 1.11 MG/DL (0.60-1.10); GLUCOSE 82 MG/DL (70-104); MAGNESIUM 1.3 MG/DL (1.5-2.4); POTASSIUM 4.2 MMOL/L (3.5-5.1); SODIUM 143 MMOL/L (135-145); TOTAL CARBON DIOXIDE 24.3 MMOL/L (24-32); TOTAL PROTEIN 5.3 G/DL (6.4-8.2); eGFR 64 ML/MIN
[2017-12-19 07:29] LABS: ANISOCYTOSIS 3+; ELLIPTOCYTES 2+; PLATELET ESTIMATE NORMAL; POIKILOCYTOSIS FEW; POLYCHROMASIA FEW; SCHISTOCYTES FEW; TARGET CELLS FEW
[2017-12-19] MEDS: magnesium oxide 400mg tablet PO SCH ×2 (07:35→21:15)
[2017-12-19] MEDS: lactobacillus rhamnosus 10,000 MMU CELLS/CAPSULE PO SCH ×2 (07:35→21:15)
[2017-12-19] MEDS: pantoprazole 40mg Tablet.DR PO SCH (07:35)
[2017-12-19] MEDS: CefTRIAXone 2gm/D5W 50ml 50 ML IV SCH (07:36)
[2017-12-19] MEDS: potassium Cl 20 mEq SR tablet PO SCH ×2 (07:36→17:30)
[2017-12-19] MEDS: K and/or MAG REPLACEMENT MC SCH (08:00)
[2017-12-19 11:00] VITALS: BP 139/84
[2017-12-19] MEDS ORDERED: PEG 3350/Na sulf,bicarb,Cl/KCl oral sol 4 liter bottle PO ONE (12:15)
[2017-12-19 15:00] VITALS: BP 156/89
[2017-12-19 19:00] VITALS: BP 133/77
[2017-12-19] MEDS: sertraline 50mg tablet PO SCH (21:15)
[2017-12-19 23:00] VITALS: BP_SYST 117; BP_SYST 161; BP_SYST 99; BP_DIAS 61; BP_DIAS 73; BP_DIAS 85
[2017-12-20] VITALS (10 sets, daily range): BP systolic 105–157; BP diastolic 63–90
[2017-12-20 07:00] LABS: BASOPHILS % (AUTO) 0.2 % (0-1); EOSINOPHILS # (AUTO) 0.4 X10'3 (0-0.9); EOSINOPHILS % (AUTO) 3.5 % (0-6); HEMATOCRIT 27.6 % (42.0-52.0); HEMOGLOBIN 8.9 g/dl (14.0-17.9); LYMPHOCYTES # (AUTO) 1.3 X10'3 (1.1-4.8); MEAN CORPUSCULAR HGB CONC 32.2 % (33.0-36.5); MEAN CORPUSCULAR VOLUME 108.8 FL (78-98); MEAN PLATELET VOLUME 8.1 FL (7.4-10.4); MONOCYTES # (AUTO) 0.2 X10'3 (0-0.9); MONOCYTES % (AUTO) 1.8 % (2-12); NEUTROPHILS # (AUTO) 9.9 X10'3 (1.8-7.7); NEUTROPHILS % (AUTO) 83.5 % (42-75); PLATELET COUNT 376 X10'3 (140-440); RED BLOOD COUNT 2.54 X10'6 (4.70-6.10); RED CELL DISTRIBUTION WIDTH 36.2 % (11.5-14.5); WHITE BLOOD COUNT 11.8 X10'3 (4.5-11.0)
[2017-12-20 07:02] LABS: INR 1.9 INR; PROTHROMBIN TIME 18.6 SECONDS (9.0-12.0)
[2017-12-20 07:09] LABS: ALBUMIN 2.6 G/DL (3.4-5.0); ANION GAP 8 (8-16); BLOOD UREA NITROGEN 8 MG/DL (7-18); BUN/CREATININE RATIO 7.5 (5.4-32.0); CALCIUM 8.6 MG/DL (8.5-10.1); CHLORIDE 109 MMOL/L (99-107); CREATININE 1.07 MG/DL (0.60-1.10); GLUCOSE 80 MG/DL (70-104); MAGNESIUM 1.4 MG/DL (1.5-2.4); POTASSIUM 3.4 MMOL/L (3.5-5.1); SODIUM 142 MMOL/L (135-145); TOTAL CARBON DIOXIDE 24.6 MMOL/L (24-32); TOTAL PROTEIN 5.9 G/DL (6.4-8.2); eGFR 67 ML/MIN
[2017-12-20 07:10] LABS: ALANINE AMINOTRANSFERASE 25 U/L (12-78); ALBUMIN/GLOBULIN RATIO 0.8 (1.1-1.5); ALKALINE PHOSPHATASE 157 IU/L (46-116); ASPARTATE AMINO TRANSFERASE 28 U/L (10-37)
[2017-12-20 07:28] LABS: NUCLEATED RED BLOOD CELLS 1 /100WBC (0-0); TOTAL CELLS COUNTED 100
[2017-12-20 07:29] LABS: ANISOCYTOSIS 3+; HYPERSEGMENTED NEUTROPHILS 2+; PLATELET ESTIMATE NORMAL
[2017-12-20 07:30] LABS: ELLIPTOCYTES 1+; POLYCHROMASIA 1+; SCHISTOCYTES 1+; TARGET CELLS FEW; TEAR DROP CELLS 1+
[2017-12-20] MEDS: pantoprazole 40mg Tablet.DR PO SCH (07:30)
[2017-12-20] MEDS: lactobacillus rhamnosus 10,000 MMU CELLS/CAPSULE PO SCH ×2 (08:00→20:52)
[2017-12-20] MEDS: magnesium oxide 400mg tablet PO SCH ×2 (08:00→20:53)
[2017-12-20] MEDS: K and/or MAG REPLACEMENT MC SCH (08:00)
[2017-12-20] MEDS: potassium Cl 20 mEq SR tablet PO SCH ×2 (08:30→17:51)
[2017-12-20] MEDS: CefTRIAXone 2gm/D5W 50ml 50 ML IV SCH (08:36)
[2017-12-20] MEDS ORDERED: fentaNYL/PF 50MCG/1 ML 2ML syringe ONE (08:58)
[2017-12-20] MEDS ORDERED: MIDAZolam 5mg/5ml vial ONE (08:58)
[2017-12-20] MEDS ORDERED: LIDOcaine Viscous 15ml cup ONE (09:26)
[2017-12-20] MEDS: potassium cl 20mEq in 1/2 NS 1,000 ML IV SCH ×2 (10:29→22:37)
[2017-12-20] MEDS: sertraline 50mg tablet PO SCH (20:52)
[2017-12-20] MEDS ORDERED: warfarin 1mg tablet PO ONE (21:00)
[2017-12-21 02:00] VITALS: BP 118/70
[2017-12-21 05:58] LABS: INR 1.9 INR; PROTHROMBIN TIME 18.3 SECONDS (9.0-12.0)
[2017-12-21 06:18] LABS: ALANINE AMINOTRANSFERASE 24 U/L (12-78); ALBUMIN 2.5 G/DL (3.4-5.0); ALBUMIN/GLOBULIN RATIO 0.8 (1.1-1.5); ALKALINE PHOSPHATASE 144 IU/L (46-116); ANION GAP 9 (8-16); ASPARTATE AMINO TRANSFERASE 26 U/L (10-37); BILIRUBIN,TOTAL 0.6 MG/DL (0.1-1.0); BLOOD UREA NITROGEN 8 MG/DL (7-18); BUN/CREATININE RATIO 7.3 (5.4-32.0); CALCIUM 8.3 MG/DL (8.5-10.1); CHLORIDE 111 MMOL/L (99-107); CREATININE 1.09 MG/DL (0.60-1.10); GLUCOSE 76 MG/DL (70-104); MAGNESIUM 1.3 MG/DL (1.5-2.4); POTASSIUM 3.7 MMOL/L (3.5-5.1); SODIUM 142 MMOL/L (135-145); TOTAL CARBON DIOXIDE 22.1 MMOL/L (24-32); TOTAL PROTEIN 5.8 G/DL (6.4-8.2); eGFR 65 ML/MIN
[2017-12-21 07:30] VITALS: BP 148/74
[2017-12-21] MEDS: K and/or MAG REPLACEMENT MC SCH (08:00)
[2017-12-21] MEDS: pantoprazole 40mg Tablet.DR PO SCH (09:11)
[2017-12-21] MEDS: potassium Cl 20 mEq SR tablet PO SCH ×2 (09:11→17:42)
[2017-12-21] MEDS: potassium cl 20mEq in 1/2 NS 1,000 ML IV SCH ×2 (09:11→15:50)
[2017-12-21] MEDS: lactobacillus rhamnosus 10,000 MMU CELLS/CAPSULE PO SCH ×2 (09:12→19:53)
[2017-12-21] MEDS: magnesium oxide 400mg tablet PO SCH ×2 (09:12→19:53)
[2017-12-21 11:00] VITALS: BP 131/69
[2017-12-21 15:00] VITALS: BP 128/66
[2017-12-21 19:00] VITALS: BP 142/67
[2017-12-21] MEDS: sertraline 50mg tablet PO SCH (20:02)
[2017-12-21] MEDS ORDERED: polyethylene glycol 3350 17gm powd pack PO SCH (21:00)
[2017-12-21] MEDS ORDERED: warfarin 1mg tablet PO ONE (21:00)
[2017-12-21] MEDS ORDERED: tamsulosin 0.4mg capsule PO SCH (21:35)
[2017-12-21 22:47] VITALS: BP 126/67
[2017-12-22 03:00] VITALS: BP 118/59
[2017-12-22 06:00] VITALS: BP 157/97
[2017-12-22 06:50] LABS: INR 1.8 INR
[2017-12-22] MEDS: magnesium oxide 400mg tablet PO SCH (07:55)
[2017-12-22] MEDS: pantoprazole 40mg Tablet.DR PO SCH (07:55)
[2017-12-22] MEDS: lactobacillus rhamnosus 10,000 MMU CELLS/CAPSULE PO SCH (07:55)
[2017-12-22] MEDS: potassium Cl 20 mEq SR tablet PO SCH (07:55)
[2017-12-22] MEDS: K and/or MAG REPLACEMENT MC SCH (08:00)
[2017-12-22 10:25] LABS: MAGNESIUM 1.2 MG/DL (1.5-2.4); POTASSIUM 3.5 MMOL/L (3.5-5.1)
[2017-12-22] MEDS ORDERED: POLY17PO10 PO (11:17)
== END 2017-12-22 15:00 | disposition home health service (06) | DRG 682 ==
LOC: ER 08:36 → ED HOLD 12:26 → PCU 3S 16:40 → CMPBEDREQ 12-15 21:35 → PCU 3S 12-19 14:46
PROVIDERS: ADMIT Internal Medicine; ATTEND Family Medicine
PROC: 30233L1 Transfusion of Nonautologous Fresh Plasma into Peripheral Vein, Percutaneous Approach (ICD-10-PCS; 2017-12-11)
PROC: 30233N1 Transfusion of Nonautologous Red Blood Cells into Peripheral Vein, Percutaneous Approach (ICD-10-PCS; 2017-12-11)
PROC: 30233K1 Transfusion of Nonautologous Frozen Plasma into Peripheral Vein, Percutaneous Approach (ICD-10-PCS; 2017-12-11)
PROC: 3E02340 Introduction of Influenza Vaccine into Muscle, Percutaneous Approach (ICD-10-PCS; 2017-12-12)
PROC: 3E0234Z Introduction of Serum, Toxoid and Vaccine into Muscle, Percutaneous Approach (ICD-10-PCS; 2017-12-12)
PROC: BW211ZZ Computerized Tomography (CT Scan) of Abdomen and Pelvis using Low Osmolar Contrast (ICD-10-PCS; 2017-12-14)
PROC: 0DJD8ZZ Inspection of Lower Intestinal Tract, Via Natural or Artificial Opening Endoscopic (ICD-10-PCS; principal; 2017-12-20)
DX: N17.9 Acute kidney failure, unspecified (principal); J18.1 Lobar pneumonia, unspecified organism; J44.0 Chronic obstructive pulmonary disease with (acute) lower respiratory infection; E87.0 Hyperosmolality and hypernatremia; D68.9 Coagulation defect, unspecified; I82.512 Chronic embolism and thrombosis of left femoral vein; I82.532 Chronic embolism and thrombosis of left popliteal vein; D68.69 Other thrombophilia; Q43.8 Other specified congenital malformations of intestine; J90 Pleural effusion, not elsewhere classified; E87.2 Acidosis; D63.1 Anemia in chronic kidney disease; N18.9 Chronic kidney disease, unspecified; E87.6 Hypokalemia; I71.9 Aortic aneurysm of unspecified site, without rupture; E03.9 Hypothyroidism, unspecified; E78.00 Pure hypercholesterolemia, unspecified; E78.5 Hyperlipidemia, unspecified; E83.42 Hypomagnesemia; E83.51 Hypocalcemia; R94.5 Abnormal results of liver function studies; I25.10 Atherosclerotic heart disease of native coronary artery without angina pectoris; I48.91 Unspecified atrial fibrillation; T45.515A Adverse effect of anticoagulants, initial encounter; Z90.49 Acquired absence of other specified parts of digestive tract; Z99.3 Dependence on wheelchair; Z23 Encounter for immunization; Z91.011 Allergy to milk products; Z88.5 Allergy status to narcotic agent; Z88.0 Allergy status to penicillin; Z91.018 Allergy to other foods; Z79.899 Other long term (current) drug therapy; Z79.01 Long term (current) use of anticoagulants
CPT/HCPCS: 36415; 45378; 71045; 71250; 74176; 74177; 80048; 80053; 82272; 82948; 83605; 83735; 84132; 84443; 84484; 85025; 85384; 85610; 85730; 86885; 86900; 86901; 86920; 87040; 87070; 93005; 93306; 93970; 94640; 94760; 96365; 96368; 97110; 97116; 97162; 97530; 99152; 99153; 99285; A4620; C9113; G0378; J0696; J2250; J2405; J3010; J3370; J3411; J3480; J3490; J7030; J8597; P9016; P9059; Q9963; Q9967

== ENCOUNTER 2018-01-05 11:17 | Inpatient (IN) | payer MEDICARE, MEDICAID ==
[~2018-01-05] VITALS: Ht 157.5 cm; Wt 59.9 kg
[~2018-01-05 11:17] MED LIST changes: +POLY17PO10 PO; +WARF-65 PO
[2018-01-05 12:11] LABS: BASOPHILS % (AUTO) 0.2 % (0-1); EOSINOPHILS # (AUTO) 0.3 X10'3 (0-0.9); EOSINOPHILS % (AUTO) 2.8 % (0-6); HEMOGLOBIN 7.9 g/dl (14.0-17.9); LYMPHOCYTES # (AUTO) 1.1 X10'3 (1.1-4.8); LYMPHOCYTES % (AUTO) 11.9 % (21-51); MEAN CORPUSCULAR HEMOGLOBIN 35.4 PG (27.0-31.0); MEAN CORPUSCULAR HGB CONC 33.1 % (33.0-36.5); MEAN CORPUSCULAR VOLUME 106.9 FL (78-98); MONOCYTES # (AUTO) 0.3 X10'3 (0-0.9); MONOCYTES % (AUTO) 2.7 % (2-12); NEUTROPHILS # (AUTO) 7.8 X10'3 (1.8-7.7); NEUTROPHILS % (AUTO) 82.4 % (42-75); PLATELET COUNT 201 X10'3 (140-440); RED BLOOD COUNT 2.24 X10'6 (4.70-6.10); RED CELL DISTRIBUTION WIDTH 36.2 % (11.5-14.5); WHITE BLOOD COUNT 9.4 X10'3 (4.5-11.0)
[2018-01-05 12:30] LABS: ALANINE AMINOTRANSFERASE 24 U/L (12-78); ALBUMIN 2.9 G/DL (3.4-5.0); ALKALINE PHOSPHATASE 122 IU/L (46-116); ANION GAP 15 (8-16); ASPARTATE AMINO TRANSFERASE 35 U/L (10-37); BILIRUBIN,TOTAL 2.6 MG/DL (0.1-1.0); BLOOD UREA NITROGEN 12 MG/DL (7-18); BUN/CREATININE RATIO 6.3 (5.4-32.0); CHLORIDE 110 MMOL/L (99-107); CREATININE 1.92 MG/DL (0.60-1.10); GLUCOSE 90 MG/DL (70-104); SODIUM 148 MMOL/L (135-145); TOTAL CARBON DIOXIDE 22.6 MMOL/L (24-32); TOTAL PROTEIN 5.9 G/DL (6.4-8.2); eGFR 34 ML/MIN
[2018-01-05 12:37] LABS: CALCIUM < 5.0 MG/DL (8.5-10.1); POTASSIUM 2.3 MMOL/L (3.5-5.1)
[2018-01-05 12:41] LABS: ANISOCYTOSIS 3+; ELLIPTOCYTES 1+; HYPERSEGMENTED NEUTROPHILS 2+; NUCLEATED RED BLOOD CELLS 1 /100WBC (0-0); PLATELET ESTIMATE NORMAL; POLYCHROMASIA 1+; SCHISTOCYTES 1+; TOTAL CELLS COUNTED 100
[2018-01-05 12:42] LABS: ACANTHOCYTES FEW; POIKILOCYTOSIS 2+
[2018-01-05 12:43] LABS: TEAR DROP CELLS FEW
[2018-01-05 12:55] LABS: CLARITY,URINE SLIGHTLY CLOUDY (Clear); COLOR,URINE YELLOW (Yellow); GLUCOSE, URINE NEGATIVE (Neg); KETONES,URINE NEGATIVE (Neg); LEUKOCYTE ESTERASE ,URINE MODERATE (Neg); NITRITES, URINE NEGATIVE (Neg); OCCULT BLOOD,URINE NEGATIVE (Neg); PROTEIN,URINE 30 mg/dl (Neg); UROBILINOGEN,URINE 0.2 E.U/dL (0.2-1.0)
[2018-01-05 13:11] LABS: UA COLLECTION TYPE VOIDED
[2018-01-05 13:12] LABS: BACTERIA,URINE 1+ /HPF (Neg); MUCUS STRANDS MODERATE /LPF (Neg); RBC,URINE 0-2 /HPF (0-2); SQUAMOUS EPITHELIAL CELL,UR MODERATE /LPF (FEW)
[2018-01-05 13:14] LABS: YEAST MODERATE /HPF (NEGATIVE)
[2018-01-05] MEDS ORDERED: magnesium 1gm/100ml D5W IVPB 100 ML IV SCH (13:30)
[2018-01-05] MEDS ORDERED: calcium gluconate inj. 2 GM in normal saline 100ml IV soln 100 ML IV ONE (13:30)
[2018-01-05 13:42] LABS: PHOSPHORUS 3.5 MG/DL (2.3-4.5)
[2018-01-05 13:43] LABS: MAGNESIUM 0.4 MG/DL (1.5-2.4)
[2018-01-05 13:47] LABS: PARTIAL THROMBOPLASTIN TIME 35 SECONDS (22-32); PROTHROMBIN TIME 44.4 SECONDS (9.0-12.0)
[2018-01-05 13:50] LABS: INR 4.8 INR
[2018-01-05 14:00] LABS: OCCULT BLOOD STOOL NEGATIVE (Neg)
[2018-01-05] MEDS ORDERED: magnesium 2GM in 50ml NS 50 ML IV ONE (14:10)
[2018-01-05] MEDS: potassium Cl 20mEq in NS 1,000 ML IV SCH ×2 (14:18→22:06)
[2018-01-05 14:20] LABS: ALANINE AMINOTRANSFERASE 27 U/L (12-78); ALBUMIN 2.8 G/DL (3.4-5.0); ALKALINE PHOSPHATASE 117 IU/L (46-116); ANION GAP 16 (8-16); ASPARTATE AMINO TRANSFERASE 33 U/L (10-37); BILIRUBIN,TOTAL 2.6 MG/DL (0.1-1.0); BLOOD UREA NITROGEN 12 MG/DL (7-18); BUN/CREATININE RATIO 6.2 (5.4-32.0); CHLORIDE 111 MMOL/L (99-107); CREATININE 1.95 MG/DL (0.60-1.10); GLUCOSE 88 MG/DL (70-104); SODIUM 148 MMOL/L (135-145); TOTAL PROTEIN 5.6 G/DL (6.4-8.2); eGFR 33 ML/MIN
[2018-01-05] MEDS ORDERED: magnesium 4gm in 100ml NS 100 ML IV PRN (14:20)
[2018-01-05] MEDS: K and/or MAG REPLACEMENT MC SCH (14:20)
[2018-01-05] MEDS ORDERED: potassium Cl 20 mEq SR tablet PO PRN (14:20)
[2018-01-05] MEDS ORDERED: magnesium Cl slow-release 64mg tablet PO PRN (14:20)
[2018-01-05] MEDS ORDERED: mag hydrox/Alum hydrox/simeth 30ml oral suspension PO PRN (14:20)
[2018-01-05] MEDS ORDERED: potassium Cl 40MEQ/NS 500ml 500 ML IV PRN ×2 (14:20)
[2018-01-05] MEDS ORDERED: magnesium hydroxide 30ml (MOM) UD suspension PO PRN (14:20)
[2018-01-05] MEDS ORDERED: magnesium 1gm/100ml D5W IVPB 100 ML IV PRN (14:20)
[2018-01-05 14:27] LABS: CALCIUM < 5.0 MG/DL (8.5-10.1); POTASSIUM 2.4 MMOL/L (3.5-5.1)
[2018-01-05] MEDS: potassium 10mEq/100ml NS w/LIDOcaine (10mg/bag) IV SCH ×2 (14:45→16:50)
[2018-01-05] MEDS ORDERED: potassium 10mEq/100ml NS w/LIDOcaine (10mg/bag) IV SCH (16:55)
[2018-01-05] MEDS ORDERED: traMADol 50MG tablet PO PRN (17:15)
[2018-01-05] MEDS ORDERED: ipratropium 0.5 MG/2.5ML nebule NEB PRN (17:15)
[2018-01-05] MEDS ORDERED: albuterol 2.5 MG/3 ML nebule NEB PRN (17:15)
[2018-01-05] MEDS ORDERED: heparin, porcine 5000 units/ml vial SQ SCH (20:00)
[2018-01-05 20:24] VITALS: BP 129/75
[2018-01-05] MEDS: sertraline 50mg tablet PO SCH (20:40)
[2018-01-05] MEDS: atorvastatin 10mg tablet PO SCH (20:40)
[2018-01-05 22:00] VITALS: BP 127/66
[2018-01-05] MEDS: potassium Cl 20 mEq SR tablet PO PRN (22:06)
[2018-01-06] VITALS (10 sets, daily range): BP systolic 108–131; BP diastolic 64–79
[2018-01-06] MEDS: levoTHYROXINE 75mcg tablet PO SCH (07:18)
[2018-01-06] MEDS: pantoprazole 40mg Tablet.DR PO SCH (07:19)
[2018-01-06] MEDS: potassium Cl 20 mEq SR tablet PO PRN ×2 (07:19→22:13)
[2018-01-06] MEDS: K and/or MAG REPLACEMENT MC SCH (07:40)
[2018-01-06 07:44] LABS: BASOPHILS % (AUTO) 0.1 % (0-1); EOSINOPHILS # (AUTO) 0.3 X10'3 (0-0.9); LYMPHOCYTES # (AUTO) 1.5 X10'3 (1.1-4.8); LYMPHOCYTES % (AUTO) 17.2 % (21-51); MEAN CORPUSCULAR HEMOGLOBIN 34.9 PG (27.0-31.0); MEAN CORPUSCULAR HGB CONC 32.9 % (33.0-36.5); MEAN CORPUSCULAR VOLUME 106.2 FL (78-98); MEAN PLATELET VOLUME 8.6 FL (7.4-10.4); MONOCYTES # (AUTO) 0.3 X10'3 (0-0.9); MONOCYTES % (AUTO) 3.1 % (2-12); NEUTROPHILS # (AUTO) 6.6 X10'3 (1.8-7.7); NEUTROPHILS % (AUTO) 75.6 % (42-75); PLATELET COUNT 186 X10'3 (140-440); RED BLOOD COUNT 1.95 X10'6 (4.70-6.10); RED CELL DISTRIBUTION WIDTH 36.7 % (11.5-14.5); WHITE BLOOD COUNT 8.7 X10'3 (4.5-11.0)
[2018-01-06 07:52] LABS: HEMATOCRIT 20.7 % (42.0-52.0); HEMOGLOBIN 6.8 g/dl (14.0-17.9)
[2018-01-06 08:07] LABS: ALANINE AMINOTRANSFERASE 22 U/L (12-78); ALBUMIN 2.6 G/DL (3.4-5.0); ALKALINE PHOSPHATASE 102 IU/L (46-116); ANION GAP 15 (8-16); ASPARTATE AMINO TRANSFERASE 27 U/L (10-37); BILIRUBIN,TOTAL 2.4 MG/DL (0.1-1.0); BLOOD UREA NITROGEN 16 MG/DL (7-18); BUN/CREATININE RATIO 8.2 (5.4-32.0); CHLORIDE 112 MMOL/L (99-107); CREATININE 1.94 MG/DL (0.60-1.10); GLUCOSE 88 MG/DL (70-104); SODIUM 148 MMOL/L (135-145); TOTAL PROTEIN 5.2 G/DL (6.4-8.2); eGFR 34 ML/MIN
[2018-01-06] MEDS ORDERED: acetaminophen 325mg tablet PO ONE (08:10)
[2018-01-06 08:11] LABS: POTASSIUM 2.5 MMOL/L (3.5-5.1)
[2018-01-06 08:12] LABS: CALCIUM 5.1 MG/DL (8.5-10.1)
[2018-01-06 08:33] LABS: ANISOCYTOSIS 3+; PLATELET ESTIMATE NORMAL
[2018-01-06 08:35] LABS: ELLIPTOCYTES FEW; MICROCYTOSIS 1+; TEAR DROP CELLS 1+
[2018-01-06 09:03] LABS: C DIFFICILE TOXINS A&B NEGATIVE (Neg)
[2018-01-06 09:04] LABS: C DIFF ANTIGEN NEGATIVE (NEGATIVE); C DIFF SPECIMEN=DIARRHEA? ACCEPTABLE
[2018-01-06 09:21] LABS: PARATHYROID HORMONE 48.1 PG/ML (11-67)
[2018-01-06] MEDS ORDERED: pneumococcal 23-VAL P-sac vacc 25 mcg/0.5ml vial IMVAC ONE (10:00)
[2018-01-06] MEDS ORDERED: magnesium 4gm in 100ml NS 100 ML IV ONE (10:35)
[2018-01-06] MEDS ORDERED: calcium gluconate inj. 1 GM in normal saline 100ml IV soln 90 ML IV ONE (10:35)
[2018-01-06 11:08] LABS: INR 3.3 INR; PROTHROMBIN TIME 31.5 SECONDS (9.0-12.0)
[2018-01-06 11:13] LABS: % IRON SATURATION 59 % (11-46); IRON 106 UG/DL (53-167); TOTAL IRON BINDING CAPACITY 179 UG/DL (259-388)
[2018-01-06] MEDS: potassium CL 20mEq in D5-1/2NS 1,000 ML IV SCH ×2 (11:56→20:32)
[2018-01-06] MEDS: nystatin 15 GM powder TP SCH ×2 (16:38→22:16)
[2018-01-06] MEDS: potassium Cl 20 mEq SR tablet PO SCH (16:42)
[2018-01-06 21:00] LABS: BASOPHILS % (AUTO) 0.1 % (0-1); EOSINOPHILS # (AUTO) 0.3 X10'3 (0-0.9); EOSINOPHILS % (AUTO) 3.4 % (0-6); HEMATOCRIT 27.8 % (42.0-52.0); HEMOGLOBIN 9.3 g/dl (14.0-17.9); LYMPHOCYTES % (AUTO) 9.9 % (21-51); MEAN CORPUSCULAR HEMOGLOBIN 34.3 PG (27.0-31.0); MEAN CORPUSCULAR HGB CONC 33.5 % (33.0-36.5); MEAN CORPUSCULAR VOLUME 102.6 FL (78-98); MEAN PLATELET VOLUME 9.1 FL (7.4-10.4); MONOCYTES # (AUTO) 0.3 X10'3 (0-0.9); MONOCYTES % (AUTO) 3.4 % (2-12); NEUTROPHILS # (AUTO) 8.4 X10'3 (1.8-7.7); NEUTROPHILS % (AUTO) 83.2 % (42-75); PLATELET COUNT 192 X10'3 (140-440); RED BLOOD COUNT 2.71 X10'6 (4.70-6.10); RED CELL DISTRIBUTION WIDTH 32.5 % (11.5-14.5); WHITE BLOOD COUNT 10.1 X10'3 (4.5-11.0)
[2018-01-06 21:10] LABS: ALBUMIN 2.8 G/DL (3.4-5.0); ANION GAP 11 (8-16); BLOOD UREA NITROGEN 16 MG/DL (7-18); BUN/CREATININE RATIO 8.2 (5.4-32.0); CHLORIDE 110 MMOL/L (99-107); CREATININE 1.95 MG/DL (0.60-1.10); GLUCOSE 129 MG/DL (70-104); SODIUM 142 MMOL/L (135-145); TOTAL CARBON DIOXIDE 21.2 MMOL/L (24-32); eGFR 33 ML/MIN
[2018-01-06 21:22] LABS: POTASSIUM 2.9 MMOL/L (3.5-5.1)
[2018-01-06 21:23] LABS: CALCIUM 5.9 MG/DL (8.5-10.1)
[2018-01-06] MEDS: magnesium Cl slow-release 64mg tablet PO SCH (22:12)
[2018-01-06] MEDS: atorvastatin 10mg tablet PO SCH (22:13)
[2018-01-06] MEDS: sertraline 50mg tablet PO SCH (22:13)
[2018-01-06 22:22] LABS: PLATELET ESTIMATE NORMAL
[2018-01-06 22:23] LABS: ANISOCYTOSIS 3+; SCHISTOCYTES 1+
[2018-01-06 22:25] LABS: ELLIPTOCYTES 1+
[2018-01-07 03:00] VITALS: BP 94/87
[2018-01-07] MEDS: potassium Cl 20 mEq SR tablet PO PRN (05:21)
[2018-01-07 06:00] VITALS: BP 110/56
[2018-01-07] MEDS: K and/or MAG REPLACEMENT MC SCH (08:00)
[2018-01-07] MEDS: magnesium Cl slow-release 64mg tablet PO SCH ×2 (08:35→22:58)
[2018-01-07] MEDS: calcium gluconate inj. 1 GM in normal saline 100ml IV soln 90 ML IV SCH ×2 (08:35→20:30)
[2018-01-07] MEDS: calcium carbonate 500mg tablet PO SCH ×3 (08:35→17:49)
[2018-01-07] MEDS: loratadine 10mg tablet PO SCH (08:35)
[2018-01-07] MEDS: pantoprazole 40mg Tablet.DR PO SCH (08:35)
[2018-01-07] MEDS: potassium Cl 20 mEq SR tablet PO SCH ×2 (08:35→17:49)
[2018-01-07] MEDS: levoTHYROXINE 75mcg tablet PO SCH (08:36)
[2018-01-07] MEDS: potassium CL 20mEq in D5-1/2NS 1,000 ML IV SCH ×2 (08:36→17:49)
[2018-01-07] MEDS: nystatin 15 GM powder TP SCH ×3 (08:50→21:00)
[2018-01-07] MEDS: ondansetron/PF 4mg/2ml inj IV PRN (08:51)
[2018-01-07 10:02] LABS: BASOPHILS % (AUTO) 0.1 % (0-1); EOSINOPHILS # (AUTO) 0.4 X10'3 (0-0.9); EOSINOPHILS % (AUTO) 3.6 % (0-6); HEMATOCRIT 28.3 % (42.0-52.0); HEMOGLOBIN 9.5 g/dl (14.0-17.9); LYMPHOCYTES # (AUTO) 1.2 X10'3 (1.1-4.8); LYMPHOCYTES % (AUTO) 12.4 % (21-51); MEAN CORPUSCULAR HEMOGLOBIN 34.4 PG (27.0-31.0); MEAN CORPUSCULAR HGB CONC 33.5 % (33.0-36.5); MEAN CORPUSCULAR VOLUME 102.8 FL (78-98); MEAN PLATELET VOLUME 9.3 FL (7.4-10.4); MONOCYTES # (AUTO) 0.3 X10'3 (0-0.9); MONOCYTES % (AUTO) 2.7 % (2-12); NEUTROPHILS # (AUTO) 8.1 X10'3 (1.8-7.7); NEUTROPHILS % (AUTO) 81.2 % (42-75); PLATELET COUNT 183 X10'3 (140-440); RED BLOOD COUNT 2.75 X10'6 (4.70-6.10); RED CELL DISTRIBUTION WIDTH 32.4 % (11.5-14.5)
[2018-01-07 10:15] LABS: INR 1.7 INR; PROTHROMBIN TIME 16.9 SECONDS (9.0-12.0)
[2018-01-07 10:24] LABS: ALANINE AMINOTRANSFERASE 23 U/L (12-78); ALBUMIN 2.7 G/DL (3.4-5.0); ALBUMIN/GLOBULIN RATIO 0.9 (1.1-1.5); ALKALINE PHOSPHATASE 125 IU/L (46-116); ANION GAP 10 (8-16); ASPARTATE AMINO TRANSFERASE 27 U/L (10-37); BLOOD UREA NITROGEN 16 MG/DL (7-18); BUN/CREATININE RATIO 9.9 (5.4-32.0); CALCIUM 6.2 MG/DL (8.5-10.1); CHLORIDE 114 MMOL/L (99-107); CREATININE 1.61 MG/DL (0.60-1.10); GLUCOSE 107 MG/DL (70-104); MAGNESIUM 2.7 MG/DL (1.5-2.4); POTASSIUM 3.9 MMOL/L (3.5-5.1); SODIUM 143 MMOL/L (135-145); TOTAL CARBON DIOXIDE 18.7 MMOL/L (24-32); TOTAL PROTEIN 5.7 G/DL (6.4-8.2); eGFR 42 ML/MIN
[2018-01-07 10:34] LABS: PLATELET ESTIMATE NORMAL
[2018-01-07 10:35] LABS: ANISOCYTOSIS 3+; ELLIPTOCYTES 1+; POLYCHROMASIA 1+
[2018-01-07 10:36] LABS: MICROCYTOSIS 1+; SCHISTOCYTES FEW
[2018-01-07 11:00] VITALS: BP 123/69
[2018-01-07 12:03] LABS: MAGNESIUM 2.7 MG/DL (1.5-2.4)
[2018-01-07 15:00] VITALS: BP 137/71
[2018-01-07] MEDS ORDERED: potassium phosphate inj 30 MMOL in normal saline 500ml IV soln 490 ML IV ONE (18:30)
[2018-01-07] MEDS ORDERED: cyanocobalamin 1,000 mcg/ml inj SQ SCH (18:35)
[2018-01-07 19:00] VITALS: BP 137/71
[2018-01-07] MEDS: CefTRIAXone/D5W-Rocephin 1gm 50 ML IV SCH (20:11)
[2018-01-07] MEDS: sodium bicarbonate (8.4%) inj. 100 MEQ in dextrose 5%-water 1,000 ML IV SCH (20:11)
[2018-01-07] MEDS: sertraline 50mg tablet PO SCH (22:58)
[2018-01-07] MEDS: atorvastatin 10mg tablet PO SCH (22:58)
[2018-01-07 23:00] VITALS: BP 134/78
[2018-01-08 03:00] VITALS: BP 117/63
[2018-01-08 05:39] LABS: BASOPHILS % (AUTO) 0.1 % (0-1); EOSINOPHILS # (AUTO) 0.2 X10'3 (0-0.9); EOSINOPHILS % (AUTO) 3.1 % (0-6); HEMATOCRIT 25.6 % (42.0-52.0); HEMOGLOBIN 8.5 g/dl (14.0-17.9); LYMPHOCYTES # (AUTO) 0.9 X10'3 (1.1-4.8); LYMPHOCYTES % (AUTO) 11.4 % (21-51); MEAN CORPUSCULAR HEMOGLOBIN 34.2 PG (27.0-31.0); MEAN CORPUSCULAR HGB CONC 33.1 % (33.0-36.5); MEAN CORPUSCULAR VOLUME 103.2 FL (78-98); MEAN PLATELET VOLUME 9.2 FL (7.4-10.4); MONOCYTES # (AUTO) 0.2 X10'3 (0-0.9); MONOCYTES % (AUTO) 2.9 % (2-12); NEUTROPHILS # (AUTO) 6.5 X10'3 (1.8-7.7); NEUTROPHILS % (AUTO) 82.5 % (42-75); PLATELET COUNT 161 X10'3 (140-440); RED BLOOD COUNT 2.48 X10'6 (4.70-6.10); RED CELL DISTRIBUTION WIDTH 32.5 % (11.5-14.5); WHITE BLOOD COUNT 7.9 X10'3 (4.5-11.0)
[2018-01-08 06:07] LABS: INR 1.4 INR; PROTHROMBIN TIME 13.9 SECONDS (9.0-12.0)
[2018-01-08 06:25] LABS: ALANINE AMINOTRANSFERASE 23 U/L (12-78); ALBUMIN 2.5 G/DL (3.4-5.0); ALBUMIN/GLOBULIN RATIO 0.9 (1.1-1.5); ALKALINE PHOSPHATASE 128 IU/L (46-116); ANION GAP 13 (8-16); ASPARTATE AMINO TRANSFERASE 21 U/L (10-37); BILIRUBIN,TOTAL 1.6 MG/DL (0.1-1.0); BLOOD UREA NITROGEN 15 MG/DL (7-18); BUN/CREATININE RATIO 10.9 (5.4-32.0); CALCIUM 6.3 MG/DL (8.5-10.1); CHLORIDE 114 MMOL/L (99-107); CREATININE 1.38 MG/DL (0.60-1.10); GLUCOSE 99 MG/DL (70-104); PHOSPHORUS 4.1 MG/DL (2.3-4.5); POTASSIUM 3.4 MMOL/L (3.5-5.1); SODIUM 145 MMOL/L (135-145); TOTAL CARBON DIOXIDE 18.3 MMOL/L (24-32); TOTAL PROTEIN 5.4 G/DL (6.4-8.2); eGFR 50 ML/MIN
[2018-01-08 07:18] LABS: ANISOCYTOSIS 3+; PLATELET ESTIMATE NORMAL
[2018-01-08 07:19] LABS: POLYCHROMASIA FEW; SCHISTOCYTES FEW
[2018-01-08 07:20] LABS: ACANTHOCYTES 1+
[2018-01-08 07:56] VITALS: BP 116/63
[2018-01-08] MEDS: K and/or MAG REPLACEMENT MC SCH (08:00)
[2018-01-08] MEDS: CefTRIAXone/D5W-Rocephin 1gm 50 ML IV SCH (09:26)
[2018-01-08] MEDS: calcium gluconate inj. 1 GM in normal saline 100ml IV soln 90 ML IV SCH ×2 (09:26→21:10)
[2018-01-08] MEDS: sodium bicarbonate (8.4%) inj. 100 MEQ in dextrose 5%-water 1,000 ML IV SCH ×2 (09:26→15:56)
[2018-01-08] MEDS: calcium carbonate 500mg tablet PO SCH ×3 (09:27→18:02)
[2018-01-08] MEDS: levoTHYROXINE 75mcg tablet PO SCH (09:27)
[2018-01-08] MEDS: magnesium Cl slow-release 64mg tablet PO SCH ×2 (09:27→21:10)
[2018-01-08] MEDS: loratadine 10mg tablet PO SCH (09:28)
[2018-01-08] MEDS: potassium Cl 20 mEq SR tablet PO SCH ×2 (09:28→18:02)
[2018-01-08] MEDS: nystatin 15 GM powder TP SCH ×3 (09:28→21:11)
[2018-01-08] MEDS ORDERED: cefepime 1GM/NS ADD-VANTAGE 100 ML IV ONE (10:05)
[2018-01-08 11:00] VITALS: BP 134/69
[2018-01-08] MEDS: pantoprazole 40mg Tablet.DR PO SCH (12:34)
[2018-01-08 15:00] VITALS: BP 133/73
[2018-01-08 19:00] VITALS: BP 138/74
[2018-01-08] MEDS: ondansetron/PF 4mg/2ml inj IV PRN (20:15)
[2018-01-08] MEDS: sertraline 50mg tablet PO SCH (21:11)
[2018-01-08] MEDS: atorvastatin 10mg tablet PO SCH (21:11)
[2018-01-08] MEDS ORDERED: diphenhydrAMINE 50 mg/ml inj IV PRN (22:25)
[2018-01-08] MEDS ORDERED: ondansetron/PF 4mg/2ml inj IV PRN (22:25)
[2018-01-08] MEDS ORDERED: potassium Cl 20 mEq SR tablet PO PRN (22:25)
[2018-01-08] MEDS ORDERED: proCHLORperazine 10 MG/2 ml inj IV PRN (22:25)
[2018-01-08] MEDS ORDERED: potassium Cl 40MEQ/NS 500ml 500 ML IV PRN ×2 (22:25)
[2018-01-08 23:00] VITALS: BP 121/69
[2018-01-09] MEDS: sodium bicarbonate (8.4%) inj. 100 MEQ in dextrose 5%-water 1,000 ML IV SCH ×2 (02:17→14:25)
[2018-01-09 03:00] VITALS: BP 125/77
[2018-01-09 06:02] LABS: BASOPHILS % (AUTO) 0 % (0-1); EOSINOPHILS # (AUTO) 0.1 X10'3 (0-0.9); EOSINOPHILS % (AUTO) 1.6 % (0-6); HEMATOCRIT 25.7 % (42.0-52.0); HEMOGLOBIN 8.6 g/dl (14.0-17.9); LYMPHOCYTES # (AUTO) 1.1 X10'3 (1.1-4.8); LYMPHOCYTES % (AUTO) 11.9 % (21-51); MEAN CORPUSCULAR HEMOGLOBIN 34.5 PG (27.0-31.0); MEAN CORPUSCULAR HGB CONC 33.4 % (33.0-36.5); MEAN CORPUSCULAR VOLUME 103.2 FL (78-98); MEAN PLATELET VOLUME 9.2 FL (7.4-10.4); MONOCYTES # (AUTO) 0.7 X10'3 (0-0.9); MONOCYTES % (AUTO) 7.3 % (2-12); NEUTROPHILS # (AUTO) 7.4 X10'3 (1.8-7.7); NEUTROPHILS % (AUTO) 79.2 % (42-75); PLATELET COUNT 167 X10'3 (140-440); RED BLOOD COUNT 2.49 X10'6 (4.70-6.10); RED CELL DISTRIBUTION WIDTH 32.8 % (11.5-14.5); WHITE BLOOD COUNT 9.3 X10'3 (4.5-11.0)
[2018-01-09 06:21] LABS: ALANINE AMINOTRANSFERASE 26 U/L (12-78); ALBUMIN 2.5 G/DL (3.4-5.0); ALBUMIN/GLOBULIN RATIO 0.8 (1.1-1.5); ALKALINE PHOSPHATASE 154 IU/L (46-116); ANION GAP 11 (8-16); ASPARTATE AMINO TRANSFERASE 25 U/L (10-37); BILIRUBIN,TOTAL 1.6 MG/DL (0.1-1.0); BLOOD UREA NITROGEN 12 MG/DL (7-18); CALCIUM 7.2 MG/DL (8.5-10.1); CHLORIDE 111 MMOL/L (99-107); CREATININE 1.34 MG/DL (0.60-1.10); GLUCOSE 106 MG/DL (70-104); MAGNESIUM 1.7 MG/DL (1.5-2.4); PHOSPHORUS 3.2 MG/DL (2.3-4.5); SODIUM 144 MMOL/L (135-145); TOTAL CARBON DIOXIDE 22.2 MMOL/L (24-32); TOTAL PROTEIN 5.6 G/DL (6.4-8.2); eGFR 51 ML/MIN
[2018-01-09 06:28] LABS: INR 1.2 INR; PROTHROMBIN TIME 11.9 SECONDS (9.0-12.0)
[2018-01-09 06:49] LABS: PLATELET ESTIMATE NORMAL
[2018-01-09 06:50] LABS: ANISOCYTOSIS 3+; ELLIPTOCYTES 1+; HYPOCHROMASIA 1+; POLYCHROMASIA 1+; SCHISTOCYTES FEW
[2018-01-09 07:00] VITALS: BP 124/72
[2018-01-09] MEDS: nystatin 15 GM powder TP SCH ×3 (08:00→20:55)
[2018-01-09] MEDS: K and/or MAG REPLACEMENT MC SCH (08:00)
[2018-01-09] MEDS: potassium Cl 20 mEq SR tablet PO SCH ×2 (08:19→18:04)
[2018-01-09] MEDS: potassium Cl 20 mEq SR tablet PO PRN ×2 (08:19→12:43)
[2018-01-09] MEDS: calcium carbonate 500mg tablet PO SCH ×3 (08:20→18:04)
[2018-01-09] MEDS: magnesium Cl slow-release 64mg tablet PO SCH ×2 (08:20→20:02)
[2018-01-09] MEDS: levoTHYROXINE 75mcg tablet PO SCH (08:20)
[2018-01-09] MEDS: pantoprazole 40mg Tablet.DR PO SCH (08:20)
[2018-01-09] MEDS: loratadine 10mg tablet PO SCH (08:20)
[2018-01-09] MEDS: calcium gluconate inj. 1 GM in normal saline 100ml IV soln 90 ML IV SCH (10:15)
[2018-01-09 11:00] VITALS: BP 135/73
[2018-01-09 15:00] VITALS: BP 143/73
[2018-01-09 19:00] VITALS: BP 100/44
[2018-01-09] MEDS: cefepime 1GM/NS ADD-VANTAGE 100 ML IV SCH (19:00)
[2018-01-09] MEDS: atorvastatin 10mg tablet PO SCH (20:55)
[2018-01-09] MEDS: sertraline 50mg tablet PO SCH (20:55)
[2018-01-09] MEDS ORDERED: warfarin 1mg tablet PO ONE (21:00)
[2018-01-09 23:00] VITALS: BP 122/65
[2018-01-10] MEDS: cefepime 1GM/NS ADD-VANTAGE 100 ML IV SCH ×3 (00:01→15:52)
[2018-01-10 03:00] VITALS: BP 124/66
[2018-01-10 05:24] LABS: BASOPHILS % (AUTO) 0.1 % (0-1); EOSINOPHILS # (AUTO) 0.2 X10'3 (0-0.9); EOSINOPHILS % (AUTO) 2.4 % (0-6); HEMATOCRIT 24.1 % (42.0-52.0); HEMOGLOBIN 7.9 g/dl (14.0-17.9); LYMPHOCYTES # (AUTO) 1.2 X10'3 (1.1-4.8); LYMPHOCYTES % (AUTO) 11.7 % (21-51); MEAN CORPUSCULAR HEMOGLOBIN 34.4 PG (27.0-31.0); MEAN CORPUSCULAR VOLUME 104.2 FL (78-98); MEAN PLATELET VOLUME 8.9 FL (7.4-10.4); MONOCYTES # (AUTO) 0.8 X10'3 (0-0.9); MONOCYTES % (AUTO) 8.2 % (2-12); NEUTROPHILS # (AUTO) 7.8 X10'3 (1.8-7.7); NEUTROPHILS % (AUTO) 77.6 % (42-75); PLATELET COUNT 165 X10'3 (140-440); RED BLOOD COUNT 2.31 X10'6 (4.70-6.10); RED CELL DISTRIBUTION WIDTH 33.1 % (11.5-14.5)
[2018-01-10 05:38] LABS: ALANINE AMINOTRANSFERASE 28 U/L (12-78); ALBUMIN 2.2 G/DL (3.4-5.0); ALBUMIN/GLOBULIN RATIO 0.7 (1.1-1.5); ALKALINE PHOSPHATASE 145 IU/L (46-116); ANION GAP 10 (8-16); ASPARTATE AMINO TRANSFERASE 22 U/L (10-37); BILIRUBIN,TOTAL 1.6 MG/DL (0.1-1.0); BLOOD UREA NITROGEN 13 MG/DL (7-18); BUN/CREATININE RATIO 10.2 (5.4-32.0); CALCIUM 7.7 MG/DL (8.5-10.1); CHLORIDE 116 MMOL/L (99-107); CREATININE 1.27 MG/DL (0.60-1.10); GLUCOSE 96 MG/DL (70-104); MAGNESIUM 1.7 MG/DL (1.5-2.4); PHOSPHORUS 2.6 MG/DL (2.3-4.5); POTASSIUM 3.8 MMOL/L (3.5-5.1); SODIUM 149 MMOL/L (135-145); TOTAL CARBON DIOXIDE 23.1 MMOL/L (24-32); TOTAL PROTEIN 5.2 G/DL (6.4-8.2); eGFR 55 ML/MIN
[2018-01-10 05:40] LABS: INR 1.2 INR; PROTHROMBIN TIME 11.9 SECONDS (9.0-12.0)
[2018-01-10 06:00] VITALS: BP 114/65
[2018-01-10] MEDS: levoTHYROXINE 75mcg tablet PO SCH (07:11)
[2018-01-10] MEDS: potassium Cl 20mEq in D5-NS 1,000 ML IV SCH ×3 (07:25→21:47)
[2018-01-10] MEDS: K and/or MAG REPLACEMENT MC SCH (08:00)
[2018-01-10] MEDS: nystatin 15 GM powder TP SCH ×3 (08:47→21:43)
[2018-01-10] MEDS: potassium Cl 20 mEq SR tablet PO SCH ×2 (08:47→16:44)
[2018-01-10] MEDS: magnesium Cl slow-release 64mg tablet PO SCH ×2 (08:47→21:40)
[2018-01-10] MEDS: pantoprazole 40mg Tablet.DR PO SCH (08:48)
[2018-01-10] MEDS: loratadine 10mg tablet PO SCH (08:48)
[2018-01-10] MEDS: calcium carbonate 500mg tablet PO SCH ×3 (08:50→16:44)
[2018-01-10 09:41] LABS: ANISOCYTOSIS 3+; PLATELET ESTIMATE NORMAL
[2018-01-10 09:42] LABS: ELLIPTOCYTES FEW; HYPOCHROMASIA 1+; POIKILOCYTOSIS 1+; POLYCHROMASIA 1+; SCHISTOCYTES FEW; TEAR DROP CELLS FEW
[2018-01-10 11:00] VITALS: BP 117/63
[2018-01-10 15:00] VITALS: BP 118/65
[2018-01-10 18:00] VITALS: BP 124/71
[2018-01-10] MEDS: lactose-reduced food (Ensure Enlive) - 237ml bottle PO SCH (18:00)
[2018-01-10] MEDS ORDERED: warfarin 1mg tablet PO ONE (21:00)
[2018-01-10] MEDS: sertraline 50mg tablet PO SCH (21:41)
[2018-01-10] MEDS: atorvastatin 10mg tablet PO SCH (21:42)
[2018-01-10] MEDS: diatr meglu/diatrizoate 30ml oral sol.-(3 dose) bottle PO SCH (21:43)
[2018-01-10 23:00] VITALS: BP 126/66
[2018-01-11] MEDS: cefepime 1GM/NS ADD-VANTAGE 100 ML IV SCH ×4 (00:27→23:49)
[2018-01-11 03:00] VITALS: BP 126/74
[2018-01-11 06:00] VITALS: BP 137/67
[2018-01-11] MEDS: levoTHYROXINE 75mcg tablet PO SCH (07:23)
[2018-01-11] MEDS: diatr meglu/diatrizoate 30ml oral sol.-(3 dose) bottle PO SCH ×2 (07:23→21:00)
[2018-01-11] MEDS: loratadine 10mg tablet PO SCH (07:24)
[2018-01-11] MEDS: pantoprazole 40mg Tablet.DR PO SCH (07:24)
[2018-01-11] MEDS: potassium Cl 20 mEq SR tablet PO SCH ×2 (07:24→17:04)
[2018-01-11] MEDS: calcium carbonate 500mg tablet PO SCH ×3 (07:24→17:04)
[2018-01-11] MEDS: magnesium Cl slow-release 64mg tablet PO SCH ×2 (07:24→21:24)
[2018-01-11] MEDS: K and/or MAG REPLACEMENT MC SCH (08:00)
[2018-01-11] MEDS: lactose-reduced food (Ensure Enlive) - 237ml bottle PO SCH ×3 (08:00→18:00)
[2018-01-11 08:17] LABS: BASOPHILS % (AUTO) 0.1 % (0-1); EOSINOPHILS # (AUTO) 0.4 X10'3 (0-0.9); EOSINOPHILS % (AUTO) 3.3 % (0-6); HEMATOCRIT 22.9 % (42.0-52.0); HEMOGLOBIN 7.5 g/dl (14.0-17.9); LYMPHOCYTES # (AUTO) 0.9 X10'3 (1.1-4.8); LYMPHOCYTES % (AUTO) 8.5 % (21-51); MEAN CORPUSCULAR HEMOGLOBIN 34.2 PG (27.0-31.0); MEAN CORPUSCULAR HGB CONC 32.9 % (33.0-36.5); MEAN CORPUSCULAR VOLUME 104.1 FL (78-98); MEAN PLATELET VOLUME 8.8 FL (7.4-10.4); MONOCYTES # (AUTO) 0.9 X10'3 (0-0.9); MONOCYTES % (AUTO) 8.4 % (2-12); NEUTROPHILS # (AUTO) 8.6 X10'3 (1.8-7.7); NEUTROPHILS % (AUTO) 79.7 % (42-75); PLATELET COUNT 186 X10'3 (140-440); RED CELL DISTRIBUTION WIDTH 33.9 % (11.5-14.5); WHITE BLOOD COUNT 10.8 X10'3 (4.5-11.0)
[2018-01-11 08:21] LABS: ALANINE AMINOTRANSFERASE 26 U/L (12-78); ALBUMIN 2.2 G/DL (3.4-5.0); ALBUMIN/GLOBULIN RATIO 0.7 (1.1-1.5); ALKALINE PHOSPHATASE 133 IU/L (46-116); ANION GAP 11 (8-16); ASPARTATE AMINO TRANSFERASE 17 U/L (10-37); BLOOD UREA NITROGEN 12 MG/DL (7-18); BUN/CREATININE RATIO 10.1 (5.4-32.0); CALCIUM 7.9 MG/DL (8.5-10.1); CHLORIDE 119 MMOL/L (99-107); CREATININE 1.19 MG/DL (0.60-1.10); GLUCOSE 112 MG/DL (70-104); MAGNESIUM 1.6 MG/DL (1.5-2.4); POTASSIUM 3.5 MMOL/L (3.5-5.1); SODIUM 150 MMOL/L (135-145); TOTAL CARBON DIOXIDE 20.4 MMOL/L (24-32); TOTAL PROTEIN 5.3 G/DL (6.4-8.2); eGFR 59 ML/MIN
[2018-01-11] MEDS: nystatin 15 GM powder TP SCH ×3 (08:34→21:25)
[2018-01-11 08:39] LABS: ANISOCYTOSIS 3+; PLATELET ESTIMATE NORMAL; POIKILOCYTOSIS FEW; POLYCHROMASIA 2+
[2018-01-11 09:05] LABS: INR 1.2 INR; PROTHROMBIN TIME 12.5 SECONDS (9.0-12.0)
[2018-01-11] MEDS ORDERED: potassium phosphate inj 30 MMOL in normal saline 500ml IV soln 490 ML IV ONE (10:10)
[2018-01-11 11:00] VITALS: BP 109/60
[2018-01-11] MEDS: potassium Cl 20mEq in D5-NS 1,000 ML IV SCH (11:54)
[2018-01-11 15:00] VITALS: BP 123/65
[2018-01-11] MEDS: potassium CL 20mEq in D5-1/2NS 1,000 ML IV SCH (15:50)
[2018-01-11] MEDS: lactobacillus rhamnosus 10,000 MMU CELLS/CAPSULE PO SCH (20:00)
[2018-01-11] MEDS: sodium bicarbonate 650mg tablet PO SCH ×2 (21:00→21:26)
[2018-01-11] MEDS ORDERED: warfarin 1mg tablet PO ONE (21:00)
[2018-01-11] MEDS: sertraline 50mg tablet PO SCH (21:24)
[2018-01-11] MEDS: atorvastatin 10mg tablet PO SCH (21:25)
[2018-01-11 23:00] VITALS: BP 125/66
[2018-01-12] VITALS (7 sets, daily range): BP systolic 102–142; BP diastolic 63–87
[2018-01-12] MEDS: acetaminophen 325mg tablet PO PRN ×2 (02:46→20:46)
[2018-01-12 07:17] LABS: BASOPHILS % (AUTO) 0.1 % (0-1); EOSINOPHILS # (AUTO) 0.4 X10'3 (0-0.9); EOSINOPHILS % (AUTO) 3.9 % (0-6); HEMATOCRIT 25.1 % (42.0-52.0); HEMOGLOBIN 8.2 g/dl (14.0-17.9); LYMPHOCYTES # (AUTO) 0.9 X10'3 (1.1-4.8); LYMPHOCYTES % (AUTO) 9.8 % (21-51); MEAN CORPUSCULAR HEMOGLOBIN 34.3 PG (27.0-31.0); MEAN CORPUSCULAR HGB CONC 32.6 % (33.0-36.5); MEAN CORPUSCULAR VOLUME 105.2 FL (78-98); MEAN PLATELET VOLUME 8.8 FL (7.4-10.4); MONOCYTES # (AUTO) 0.5 X10'3 (0-0.9); MONOCYTES % (AUTO) 5.9 % (2-12); NEUTROPHILS # (AUTO) 7.5 X10'3 (1.8-7.7); NEUTROPHILS % (AUTO) 80.3 % (42-75); PLATELET COUNT 205 X10'3 (140-440); RED BLOOD COUNT 2.38 X10'6 (4.70-6.10); RED CELL DISTRIBUTION WIDTH 33.4 % (11.5-14.5); WHITE BLOOD COUNT 9.4 X10'3 (4.5-11.0)
[2018-01-12 07:36] LABS: INR 1.7 INR; PROTHROMBIN TIME 16.4 SECONDS (9.0-12.0)
[2018-01-12 07:43] LABS: ALANINE AMINOTRANSFERASE 36 U/L (12-78); ALBUMIN 2.3 G/DL (3.4-5.0); ALBUMIN/GLOBULIN RATIO 0.7 (1.1-1.5); ALKALINE PHOSPHATASE 148 IU/L (46-116); ANION GAP 11 (8-16); ASPARTATE AMINO TRANSFERASE 32 U/L (10-37); BILIRUBIN,TOTAL 1.2 MG/DL (0.1-1.0); BLOOD UREA NITROGEN 11 MG/DL (7-18); BUN/CREATININE RATIO 9.8 (5.4-32.0); CALCIUM 7.7 MG/DL (8.5-10.1); CHLORIDE 117 MMOL/L (99-107); CREATININE 1.12 MG/DL (0.60-1.10); GLUCOSE 86 MG/DL (70-104); MAGNESIUM 1.4 MG/DL (1.5-2.4); PHOSPHORUS 3.4 MG/DL (2.3-4.5); POTASSIUM 3.3 MMOL/L (3.5-5.1); SODIUM 148 MMOL/L (135-145); TOTAL CARBON DIOXIDE 19.7 MMOL/L (24-32); TOTAL PROTEIN 5.7 G/DL (6.4-8.2); eGFR 63 ML/MIN
[2018-01-12] MEDS: K and/or MAG REPLACEMENT MC SCH (08:00)
[2018-01-12] MEDS: cefepime 1GM/NS ADD-VANTAGE 100 ML IV SCH ×2 (08:32→16:29)
[2018-01-12] MEDS: lactose-reduced food (Ensure Enlive) - 237ml bottle PO SCH ×3 (08:34→17:03)
[2018-01-12] MEDS: pantoprazole 40mg Tablet.DR PO SCH (08:34)
[2018-01-12] MEDS: loratadine 10mg tablet PO SCH (08:34)
[2018-01-12] MEDS: calcium carbonate 500mg tablet PO SCH ×3 (08:35→17:03)
[2018-01-12] MEDS: lactobacillus rhamnosus 10,000 MMU CELLS/CAPSULE PO SCH ×2 (08:35→20:47)
[2018-01-12] MEDS: sodium bicarbonate 650mg tablet PO SCH ×3 (08:35→20:48)
[2018-01-12] MEDS: levoTHYROXINE 75mcg tablet PO SCH (08:35)
[2018-01-12] MEDS: magnesium Cl slow-release 64mg tablet PO SCH ×2 (08:35→20:47)
[2018-01-12] MEDS: potassium Cl 20 mEq SR tablet PO SCH ×2 (08:35→17:03)
[2018-01-12] MEDS: nystatin 15 GM powder TP SCH ×3 (08:36→20:47)
[2018-01-12 08:55] LABS: PLATELET ESTIMATE NORMAL
[2018-01-12 08:56] LABS: HYPOCHROMASIA 1+; POLYCHROMASIA FEW
[2018-01-12 08:57] LABS: ANISOCYTOSIS 3+; POIKILOCYTOSIS 1+
[2018-01-12 08:59] LABS: ACANTHOCYTES FEW; BURR CELLS 1+; ELLIPTOCYTES FEW; SCHISTOCYTES 2+
[2018-01-12 09:00] LABS: TEAR DROP CELLS 1+
[2018-01-12] MEDS: potassium CL 20mEq in D5-1/2NS 1,000 ML IV SCH (13:36)
[2018-01-12] MEDS ORDERED: nitroGLYCERIN 0.4mg SUBLingual tab SL ONE ×2 (16:20→16:26)
[2018-01-12] MEDS ORDERED: magnesium 4gm in 100ml NS 100 ML IV PRN (18:05)
[2018-01-12] MEDS ORDERED: potassium Cl 20 mEq SR tablet PO PRN (18:05)
[2018-01-12] MEDS ORDERED: potassium Cl 40MEQ/NS 500ml 500 ML IV PRN ×2 (18:05)
[2018-01-12] MEDS: sertraline 50mg tablet PO SCH (20:47)
[2018-01-12] MEDS: atorvastatin 10mg tablet PO SCH (20:47)
[2018-01-12] MEDS ORDERED: warfarin 1mg tablet PO ONE (21:00)
[2018-01-13] MEDS: cefepime 1GM/NS ADD-VANTAGE 100 ML IV SCH ×3 (00:18→15:39)
[2018-01-13 03:00] VITALS: BP 96/53
[2018-01-13 05:49] LABS: BASOPHILS % (AUTO) 0.3 % (0-1); EOSINOPHILS # (AUTO) 0.2 X10'3 (0-0.9); EOSINOPHILS % (AUTO) 3.2 % (0-6); HEMATOCRIT 23.5 % (42.0-52.0); HEMOGLOBIN 7.7 g/dl (14.0-17.9); LYMPHOCYTES # (AUTO) 0.8 X10'3 (1.1-4.8); LYMPHOCYTES % (AUTO) 12.1 % (21-51); MEAN CORPUSCULAR HEMOGLOBIN 34.6 PG (27.0-31.0); MEAN CORPUSCULAR HGB CONC 32.8 % (33.0-36.5); MEAN CORPUSCULAR VOLUME 105.4 FL (78-98); MEAN PLATELET VOLUME 8.8 FL (7.4-10.4); MONOCYTES # (AUTO) 0.8 X10'3 (0-0.9); NEUTROPHILS # (AUTO) 5.1 X10'3 (1.8-7.7); NEUTROPHILS % (AUTO) 73.4 % (42-75); PLATELET COUNT 186 X10'3 (140-440); RED BLOOD COUNT 2.23 X10'6 (4.70-6.10); RED CELL DISTRIBUTION WIDTH 32.7 % (11.5-14.5)
[2018-01-13 06:00] VITALS: BP 104/58
[2018-01-13 06:01] LABS: INR 2.3 INR; PROTHROMBIN TIME 22.4 SECONDS (9.0-12.0)
[2018-01-13 06:03] LABS: ALANINE AMINOTRANSFERASE 25 U/L (12-78); ALBUMIN 1.9 G/DL (3.4-5.0); ALBUMIN/GLOBULIN RATIO 0.7 (1.1-1.5); ALKALINE PHOSPHATASE 127 IU/L (46-116); ANION GAP 11 (8-16); ASPARTATE AMINO TRANSFERASE 20 U/L (10-37); BILIRUBIN,TOTAL 1.2 MG/DL (0.1-1.0); BLOOD UREA NITROGEN 13 MG/DL (7-18); BUN/CREATININE RATIO 11.8 (5.4-32.0); CALCIUM 7.6 MG/DL (8.5-10.1); CHLORIDE 117 MMOL/L (99-107); GLUCOSE 90 MG/DL (70-104); POTASSIUM 3.2 MMOL/L (3.5-5.1); SODIUM 147 MMOL/L (135-145); TOTAL CARBON DIOXIDE 19.2 MMOL/L (24-32); TOTAL PROTEIN 4.8 G/DL (6.4-8.2); eGFR 65 ML/MIN
[2018-01-13 06:07] LABS: MAGNESIUM 1.4 MG/DL (1.5-2.4); PHOSPHORUS 2.6 MG/DL (2.3-4.5); TROPONIN I 0.04 NG/ML (0.0-0.05)
[2018-01-13] MEDS: pantoprazole 40mg Tablet.DR PO SCH (07:40)
[2018-01-13] MEDS: lactobacillus rhamnosus 10,000 MMU CELLS/CAPSULE PO SCH ×2 (07:40→20:46)
[2018-01-13] MEDS: loratadine 10mg tablet PO SCH (07:40)
[2018-01-13] MEDS: levoTHYROXINE 75mcg tablet PO SCH (07:40)
[2018-01-13] MEDS: magnesium Cl slow-release 64mg tablet PO SCH ×2 (07:40→20:45)
[2018-01-13] MEDS: potassium Cl 20 mEq SR tablet PO SCH ×2 (07:40→17:57)
[2018-01-13] MEDS: calcium carbonate 500mg tablet PO SCH ×3 (07:40→17:57)
[2018-01-13] MEDS: nystatin 15 GM powder TP SCH ×3 (08:00→20:46)
[2018-01-13] MEDS: sodium bicarbonate 650mg tablet PO SCH ×3 (08:00→20:45)
[2018-01-13] MEDS: lactose-reduced food (Ensure Enlive) - 237ml bottle PO SCH ×3 (08:00→17:57)
[2018-01-13] MEDS: K and/or MAG REPLACEMENT MC SCH (08:00)
[2018-01-13 11:00] VITALS: BP 125/71
[2018-01-13] MEDS: magnesium Cl slow-release 64mg tablet PO PRN (12:18)
[2018-01-13] MEDS: potassium CL 20mEq in D5-1/2NS 1,000 ML IV SCH (12:18)
[2018-01-13] MEDS: potassium Cl 20 mEq SR tablet PO PRN (12:18)
[2018-01-13 15:00] VITALS: BP 132/73
[2018-01-13 19:00] VITALS: BP 126/70
[2018-01-13] MEDS: sertraline 50mg tablet PO SCH (20:45)
[2018-01-13] MEDS: atorvastatin 10mg tablet PO SCH (20:46)
[2018-01-13] MEDS ORDERED: warfarin 1mg tablet PO ONE (21:00)
[2018-01-13 23:00] VITALS: BP 132/71
[2018-01-14 03:00] VITALS: BP 124/75
[2018-01-14 05:21] LABS: ALANINE AMINOTRANSFERASE 23 U/L (12-78); ALBUMIN 2.2 G/DL (3.4-5.0); ALBUMIN/GLOBULIN RATIO 0.7 (1.1-1.5); ALKALINE PHOSPHATASE 145 IU/L (46-116); ANION GAP 13 (8-16); ASPARTATE AMINO TRANSFERASE 19 U/L (10-37); BILIRUBIN,TOTAL 1.4 MG/DL (0.1-1.0); BLOOD UREA NITROGEN 10 MG/DL (7-18); BUN/CREATININE RATIO 9.9 (5.4-32.0); CALCIUM 7.3 MG/DL (8.5-10.1); CHLORIDE 116 MMOL/L (99-107); CREATININE 1.01 MG/DL (0.60-1.10); GLUCOSE 97 MG/DL (70-104); MAGNESIUM 1.4 MG/DL (1.5-2.4); POTASSIUM 3.5 MMOL/L (3.5-5.1); SODIUM 146 MMOL/L (135-145); TOTAL CARBON DIOXIDE 17.2 MMOL/L (24-32); TOTAL PROTEIN 5.5 G/DL (6.4-8.2); eGFR 71 ML/MIN
[2018-01-14 05:37] LABS: BASOPHILS % (AUTO) 0.3 % (0-1); EOSINOPHILS # (AUTO) 0.1 X10'3 (0-0.9); EOSINOPHILS % (AUTO) 1.2 % (0-6); HEMATOCRIT 27.4 % (42.0-52.0); LYMPHOCYTES % (AUTO) 8.9 % (21-51); MEAN CORPUSCULAR HGB CONC 32.8 % (33.0-36.5); MEAN CORPUSCULAR VOLUME 103.9 FL (78-98); MEAN PLATELET VOLUME 9.3 FL (7.4-10.4); MONOCYTES # (AUTO) 1.2 X10'3 (0-0.9); MONOCYTES % (AUTO) 10.4 % (2-12); NEUTROPHILS # (AUTO) 8.8 X10'3 (1.8-7.7); NEUTROPHILS % (AUTO) 79.2 % (42-75); PLATELET COUNT 211 X10'3 (140-440); RED BLOOD COUNT 2.63 X10'6 (4.70-6.10); WHITE BLOOD COUNT 11.1 X10'3 (4.5-11.0)
[2018-01-14 06:15] LABS: INR 2.3 INR; PROTHROMBIN TIME 22.6 SECONDS (9.0-12.0)
[2018-01-14 07:04] LABS: ANISOCYTOSIS 3+; PLATELET ESTIMATE NORMAL
[2018-01-14 07:05] LABS: BURR CELLS 1+; POLYCHROMASIA 1+
[2018-01-14 07:36] VITALS: BP 138/80
[2018-01-14] MEDS: lactose-reduced food (Ensure Enlive) - 237ml bottle PO SCH ×3 (07:36→18:00)
[2018-01-14] MEDS: pantoprazole 40mg Tablet.DR PO SCH (07:51)
[2018-01-14] MEDS: calcium carbonate 500mg tablet PO SCH ×3 (07:51→17:43)
[2018-01-14] MEDS: potassium Cl 20 mEq SR tablet PO SCH ×2 (07:51→17:43)
[2018-01-14] MEDS: levoTHYROXINE 75mcg tablet PO SCH (07:51)
[2018-01-14] MEDS: lactobacillus rhamnosus 10,000 MMU CELLS/CAPSULE PO SCH ×2 (07:51→20:13)
[2018-01-14] MEDS: loratadine 10mg tablet PO SCH (07:52)
[2018-01-14] MEDS: nystatin 15 GM powder TP SCH ×3 (07:52→20:30)
[2018-01-14] MEDS: sodium bicarbonate 650mg tablet PO SCH ×3 (07:52→20:12)
[2018-01-14] MEDS: magnesium Cl slow-release 64mg tablet PO SCH ×2 (07:54→20:12)
[2018-01-14] MEDS: potassium CL 20mEq in D5-1/2NS 1,000 ML IV SCH ×2 (07:56→22:53)
[2018-01-14] MEDS: cefepime 1GM/NS ADD-VANTAGE 100 ML IV SCH (07:56)
[2018-01-14] MEDS: K and/or MAG REPLACEMENT MC SCH (08:00)
[2018-01-14 11:00] VITALS: BP 131/64
[2018-01-14] MEDS ORDERED: potassium phosphate inj 30 MMOL in normal saline 500ml IV soln 490 ML IV ONE (14:20)
[2018-01-14 15:00] VITALS: BP 133/59
[2018-01-14] MEDS: potassium Cl 20 mEq SR tablet PO PRN (15:45)
[2018-01-14] MEDS: magnesium Cl slow-release 64mg tablet PO PRN (15:46)
[2018-01-14 19:00] VITALS: BP 154/73
[2018-01-14] MEDS: sertraline 50mg tablet PO SCH (20:13)
[2018-01-14] MEDS: atorvastatin 10mg tablet PO SCH (20:13)
[2018-01-14] MEDS ORDERED: warfarin 1mg tablet PO ONE (21:00)
[2018-01-14 23:00] VITALS: BP 148/80
[2018-01-15 03:00] VITALS: BP 128/78
[2018-01-15 06:00] VITALS: BP 127/83
[2018-01-15] MEDS: potassium CL 20mEq in D5-1/2NS 1,000 ML IV SCH (07:39)
[2018-01-15] MEDS: sodium bicarbonate 650mg tablet PO SCH ×3 (07:40→21:00)
[2018-01-15] MEDS: lactobacillus rhamnosus 10,000 MMU CELLS/CAPSULE PO SCH ×2 (07:40→20:00)
[2018-01-15] MEDS: potassium Cl 20 mEq SR tablet PO SCH ×2 (07:40→17:55)
[2018-01-15] MEDS: loratadine 10mg tablet PO SCH (07:40)
[2018-01-15] MEDS: nystatin 15 GM powder TP SCH ×4 (07:40→21:00)
[2018-01-15] MEDS: levoTHYROXINE 75mcg tablet PO SCH (07:40)
[2018-01-15] MEDS: pantoprazole 40mg Tablet.DR PO SCH (07:40)
[2018-01-15] MEDS: calcium carbonate 500mg tablet PO SCH ×3 (07:40→17:54)
[2018-01-15] MEDS: magnesium Cl slow-release 64mg tablet PO SCH ×2 (07:40→20:00)
[2018-01-15] MEDS: lactose-reduced food (Ensure Enlive) - 237ml bottle PO SCH ×3 (07:41→18:00)
[2018-01-15] MEDS: K and/or MAG REPLACEMENT MC SCH (08:00)
[2018-01-15 11:00] VITALS: BP 142/77
[2018-01-15 11:41] LABS: BASOPHILS % (AUTO) 0.1 % (0-1); EOSINOPHILS # (AUTO) 0.4 X10'3 (0-0.9); EOSINOPHILS % (AUTO) 3.8 % (0-6); HEMATOCRIT 24.3 % (42.0-52.0); HEMOGLOBIN 7.8 g/dl (14.0-17.9); LYMPHOCYTES # (AUTO) 1.2 X10'3 (1.1-4.8); LYMPHOCYTES % (AUTO) 10.1 % (21-51); MEAN CORPUSCULAR HEMOGLOBIN 33.6 PG (27.0-31.0); MEAN CORPUSCULAR HGB CONC 32.3 % (33.0-36.5); MEAN CORPUSCULAR VOLUME 104.1 FL (78-98); MEAN PLATELET VOLUME 8.6 FL (7.4-10.4); MONOCYTES # (AUTO) 0.8 X10'3 (0-0.9); MONOCYTES % (AUTO) 6.7 % (2-12); NEUTROPHILS # (AUTO) 9.1 X10'3 (1.8-7.7); NEUTROPHILS % (AUTO) 79.3 % (42-75); PLATELET COUNT 254 X10'3 (140-440); RED BLOOD COUNT 2.33 X10'6 (4.70-6.10); RED CELL DISTRIBUTION WIDTH 31.3 % (11.5-14.5); WHITE BLOOD COUNT 11.5 X10'3 (4.5-11.0)
[2018-01-15 11:45] LABS: INR 2.5 INR; PROTHROMBIN TIME 24.2 SECONDS (9.0-12.0)
[2018-01-15 12:02] LABS: ALANINE AMINOTRANSFERASE 18 U/L (12-78); ALBUMIN 1.8 G/DL (3.4-5.0); ALBUMIN/GLOBULIN RATIO 0.6 (1.1-1.5); ALKALINE PHOSPHATASE 133 IU/L (46-116); ANION GAP 9 (8-16); ASPARTATE AMINO TRANSFERASE 15 U/L (10-37); BILIRUBIN,TOTAL 0.8 MG/DL (0.1-1.0); BLOOD UREA NITROGEN 12 MG/DL (7-18); BUN/CREATININE RATIO 12.2 (5.4-32.0); CALCIUM 7.4 MG/DL (8.5-10.1); CHLORIDE 116 MMOL/L (99-107); CREATININE 0.98 MG/DL (0.60-1.10); GLUCOSE 104 MG/DL (70-104); MAGNESIUM 1.4 MG/DL (1.5-2.4); PHOSPHORUS 2.3 MG/DL (2.3-4.5); POTASSIUM 3.9 MMOL/L (3.5-5.1); SODIUM 145 MMOL/L (135-145); TOTAL CARBON DIOXIDE 19.9 MMOL/L (24-32); eGFR 74 ML/MIN
[2018-01-15 12:50] LABS: ANISOCYTOSIS 3+; PLATELET ESTIMATE NORMAL
[2018-01-15 12:55] LABS: BURR CELLS 1+; POLYCHROMASIA FEW; SCHISTOCYTES FEW
[2018-01-15 15:00] VITALS: BP 145/79
[2018-01-15 19:00] VITALS: BP 162/74
[2018-01-15] MEDS: atorvastatin 10mg tablet PO SCH (21:00)
[2018-01-15] MEDS: sertraline 50mg tablet PO SCH (21:00)
[2018-01-16] VITALS (7 sets, daily range): BP systolic 117–183; BP diastolic 61–97
[2018-01-16] MEDS ORDERED: hydrALAZINE 20mg/ml inj. IV PRN (03:20)
[2018-01-16] MEDS: potassium CL 20mEq in D5-1/2NS 1,000 ML IV SCH (03:42)
[2018-01-16 06:45] LABS: BASOPHILS # (AUTO) 0.1 X10'3 (0-0.2); BASOPHILS % (AUTO) 0.3 % (0-1); EOSINOPHILS # (AUTO) 0.5 X10'3 (0-0.9); EOSINOPHILS % (AUTO) 2.9 % (0-6); HEMATOCRIT 23.7 % (42.0-52.0); HEMOGLOBIN 7.7 g/dl (14.0-17.9); LYMPHOCYTES # (AUTO) 1.4 X10'3 (1.1-4.8); LYMPHOCYTES % (AUTO) 8.3 % (21-51); MEAN CORPUSCULAR HEMOGLOBIN 33.7 PG (27.0-31.0); MEAN CORPUSCULAR HGB CONC 32.6 % (33.0-36.5); MEAN CORPUSCULAR VOLUME 103.4 FL (78-98); MEAN PLATELET VOLUME 8.8 FL (7.4-10.4); MONOCYTES # (AUTO) 0.8 X10'3 (0-0.9); MONOCYTES % (AUTO) 4.6 % (2-12); NEUTROPHILS # (AUTO) 13.9 X10'3 (1.8-7.7); NEUTROPHILS % (AUTO) 83.9 % (42-75); PLATELET COUNT 260 X10'3 (140-440); RED BLOOD COUNT 2.29 X10'6 (4.70-6.10); RED CELL DISTRIBUTION WIDTH 30.5 % (11.5-14.5); WHITE BLOOD COUNT 16.6 X10'3 (4.5-11.0)
[2018-01-16] MEDS: levoTHYROXINE 75mcg tablet PO SCH (07:00)
[2018-01-16 07:02] LABS: ALANINE AMINOTRANSFERASE 19 U/L (12-78); ALBUMIN 1.9 G/DL (3.4-5.0); ALBUMIN/GLOBULIN RATIO 0.6 (1.1-1.5); ALKALINE PHOSPHATASE 133 IU/L (46-116); ANION GAP 9 (8-16); ASPARTATE AMINO TRANSFERASE 18 U/L (10-37); BILIRUBIN,TOTAL 0.8 MG/DL (0.1-1.0); BLOOD UREA NITROGEN 12 MG/DL (7-18); BUN/CREATININE RATIO 12.5 (5.4-32.0); CALCIUM 7.4 MG/DL (8.5-10.1); CHLORIDE 114 MMOL/L (99-107); CREATININE 0.96 MG/DL (0.60-1.10); GLUCOSE 101 MG/DL (70-104); MAGNESIUM 1.3 MG/DL (1.5-2.4); PHOSPHORUS 1.8 MG/DL (2.3-4.5); POTASSIUM 4.1 MMOL/L (3.5-5.1); SODIUM 143 MMOL/L (135-145); TOTAL CARBON DIOXIDE 20.1 MMOL/L (24-32); TOTAL PROTEIN 4.9 G/DL (6.4-8.2); eGFR 76 ML/MIN
[2018-01-16 07:05] LABS: INR 2.2 INR; PROTHROMBIN TIME 21.8 SECONDS (9.0-12.0)
[2018-01-16] MEDS: K and/or MAG REPLACEMENT MC SCH (08:00)
[2018-01-16] MEDS: nystatin 15 GM powder TP SCH ×3 (08:00→20:55)
[2018-01-16] MEDS: loratadine 10mg tablet PO SCH (08:00)
[2018-01-16] MEDS: pantoprazole 40mg Tablet.DR PO SCH (08:00)
[2018-01-16] MEDS: lactobacillus rhamnosus 10,000 MMU CELLS/CAPSULE PO SCH ×2 (08:00→20:55)
[2018-01-16] MEDS: magnesium Cl slow-release 64mg tablet PO SCH ×2 (08:00→20:57)
[2018-01-16] MEDS: sodium bicarbonate 650mg tablet PO SCH ×3 (08:00→20:55)
[2018-01-16] MEDS: lactose-reduced food (Ensure Enlive) - 237ml bottle PO SCH ×3 (08:00→17:42)
[2018-01-16] MEDS: calcium carbonate 500mg tablet PO SCH ×3 (08:30→17:41)
[2018-01-16] MEDS: potassium Cl 20 mEq SR tablet PO SCH ×2 (08:30→17:42)
[2018-01-16 08:40] LABS: ANISOCYTOSIS 3+; ELLIPTOCYTES 1+; HYPOCHROMASIA 1+; PLATELET ESTIMATE NORMAL; SCHISTOCYTES 1+
[2018-01-16] MEDS: atorvastatin 10mg tablet PO SCH (20:55)
[2018-01-16] MEDS: sertraline 50mg tablet PO SCH (20:57)
[2018-01-16] MEDS ORDERED: warfarin 1mg tablet PO ONE (21:00)
[2018-01-17 02:00] VITALS: BP 150/87
[2018-01-17 07:03] VITALS: BP 135/68
[2018-01-17] MEDS: loratadine 10mg tablet PO SCH (07:14)
[2018-01-17] MEDS: levoTHYROXINE 75mcg tablet PO SCH (07:14)
[2018-01-17] MEDS: calcium carbonate 500mg tablet PO SCH ×3 (07:14→16:55)
[2018-01-17] MEDS: pantoprazole 40mg Tablet.DR PO SCH (07:14)
[2018-01-17] MEDS: lactobacillus rhamnosus 10,000 MMU CELLS/CAPSULE PO SCH ×2 (07:14→21:07)
[2018-01-17] MEDS: sodium bicarbonate 650mg tablet PO SCH ×3 (07:14→21:04)
[2018-01-17] MEDS: potassium Cl 20 mEq SR tablet PO SCH ×2 (07:15→16:56)
[2018-01-17] MEDS: magnesium Cl slow-release 64mg tablet PO SCH ×2 (07:20→21:06)
[2018-01-17 07:23] LABS: BASOPHILS # (AUTO) 0.1 X10'3 (0-0.2); BASOPHILS % (AUTO) 0.4 % (0-1); EOSINOPHILS # (AUTO) 0.6 X10'3 (0-0.9); EOSINOPHILS % (AUTO) 4.3 % (0-6); HEMATOCRIT 24.8 % (42.0-52.0); LYMPHOCYTES # (AUTO) 1.8 X10'3 (1.1-4.8); LYMPHOCYTES % (AUTO) 12.2 % (21-51); MEAN CORPUSCULAR HEMOGLOBIN 33.3 PG (27.0-31.0); MEAN CORPUSCULAR HGB CONC 32.4 % (33.0-36.5); MEAN PLATELET VOLUME 8.6 FL (7.4-10.4); MONOCYTES # (AUTO) 0.6 X10'3 (0-0.9); MONOCYTES % (AUTO) 4.2 % (2-12); NEUTROPHILS # (AUTO) 11.4 X10'3 (1.8-7.7); NEUTROPHILS % (AUTO) 78.9 % (42-75); PLATELET COUNT 334 X10'3 (140-440); RED CELL DISTRIBUTION WIDTH 30.3 % (11.5-14.5); WHITE BLOOD COUNT 14.4 X10'3 (4.5-11.0)
[2018-01-17 07:32] LABS: INR 1.4 INR; PROTHROMBIN TIME 14.4 SECONDS (9.0-12.0)
[2018-01-17] MEDS: lactose-reduced food (Ensure Enlive) - 237ml bottle PO SCH ×3 (07:34→17:37)
[2018-01-17] MEDS: nystatin 15 GM powder TP SCH ×3 (07:35→21:06)
[2018-01-17] MEDS: K and/or MAG REPLACEMENT MC SCH (07:38)
[2018-01-17 07:48] LABS: ALANINE AMINOTRANSFERASE 24 U/L (12-78); ALBUMIN/GLOBULIN RATIO 0.6 (1.1-1.5); ALKALINE PHOSPHATASE 137 IU/L (46-116); ANION GAP 9 (8-16); ASPARTATE AMINO TRANSFERASE 23 U/L (10-37); BILIRUBIN,TOTAL 0.9 MG/DL (0.1-1.0); BLOOD UREA NITROGEN 12 MG/DL (7-18); BUN/CREATININE RATIO 13.6 (5.4-32.0); CALCIUM 7.5 MG/DL (8.5-10.1); CHLORIDE 110 MMOL/L (99-107); CREATININE 0.88 MG/DL (0.60-1.10); GLUCOSE 86 MG/DL (70-104); MAGNESIUM 1.3 MG/DL (1.5-2.4); PHOSPHORUS 2.3 MG/DL (2.3-4.5); POTASSIUM 3.9 MMOL/L (3.5-5.1); SODIUM 141 MMOL/L (135-145); TOTAL CARBON DIOXIDE 22.2 MMOL/L (24-32); TOTAL PROTEIN 5.3 G/DL (6.4-8.2); eGFR 84 ML/MIN
[2018-01-17 11:00] VITALS: BP 151/72
[2018-01-17] MEDS ORDERED: magnesium Cl slow-release 64mg tablet PO PRN (11:10)
[2018-01-17] MEDS ORDERED: magnesium 4gm in 100ml NS 100 ML IV PRN (11:10)
[2018-01-17] MEDS ORDERED: potassium Cl 20 mEq SR tablet PO PRN ×2 (11:10)
[2018-01-17] MEDS ORDERED: potassium Cl 40MEQ/NS 500ml 500 ML IV PRN ×2 (11:10)
[2018-01-17] MEDS ORDERED: magnesium 2GM in 50ml NS 50 ML IV PRN (11:10)
[2018-01-17] MEDS: potassium CL 20mEq in D5-1/2NS 1,000 ML IV SCH ×2 (11:50→16:56)
[2018-01-17 15:00] VITALS: BP 109/61
[2018-01-17 18:40] VITALS: BP 114/65
[2018-01-17] MEDS ORDERED: warfarin 1mg tablet PO ONE (21:00)
[2018-01-17] MEDS: atorvastatin 10mg tablet PO SCH (21:04)
[2018-01-17] MEDS: sertraline 50mg tablet PO SCH (21:04)
[2018-01-17 22:50] VITALS: BP 133/81
[2018-01-18 06:00] VITALS: BP 148/84
[2018-01-18 06:05] LABS: BASOPHILS % (AUTO) 0.4 % (0-1); EOSINOPHILS # (AUTO) 0.4 X10'3 (0-0.9); EOSINOPHILS % (AUTO) 3.6 % (0-6); HEMATOCRIT 23.8 % (42.0-52.0); HEMOGLOBIN 7.8 g/dl (14.0-17.9); LYMPHOCYTES # (AUTO) 1.7 X10'3 (1.1-4.8); LYMPHOCYTES % (AUTO) 14.8 % (21-51); MEAN CORPUSCULAR HEMOGLOBIN 33.9 PG (27.0-31.0); MEAN CORPUSCULAR HGB CONC 32.8 % (33.0-36.5); MEAN CORPUSCULAR VOLUME 103.3 FL (78-98); MEAN PLATELET VOLUME 8.1 FL (7.4-10.4); MONOCYTES # (AUTO) 0.6 X10'3 (0-0.9); MONOCYTES % (AUTO) 5.4 % (2-12); NEUTROPHILS # (AUTO) 8.8 X10'3 (1.8-7.7); NEUTROPHILS % (AUTO) 75.8 % (42-75); PLATELET COUNT 350 X10'3 (140-440); RED BLOOD COUNT 2.31 X10'6 (4.70-6.10); RED CELL DISTRIBUTION WIDTH 28.6 % (11.5-14.5); WHITE BLOOD COUNT 11.6 X10'3 (4.5-11.0)
[2018-01-18 06:38] LABS: ALANINE AMINOTRANSFERASE 30 U/L (12-78); ALBUMIN 1.9 G/DL (3.4-5.0); ALBUMIN/GLOBULIN RATIO 0.6 (1.1-1.5); ALKALINE PHOSPHATASE 133 IU/L (46-116); ANION GAP 7 (8-16); ASPARTATE AMINO TRANSFERASE 25 U/L (10-37); BILIRUBIN,TOTAL 0.6 MG/DL (0.1-1.0); BLOOD UREA NITROGEN 13 MG/DL (7-18); BUN/CREATININE RATIO 14.6 (5.4-32.0); CALCIUM 7.9 MG/DL (8.5-10.1); CHLORIDE 113 MMOL/L (99-107); CREATININE 0.89 MG/DL (0.60-1.10); GLUCOSE 86 MG/DL (70-104); MAGNESIUM 1.4 MG/DL (1.5-2.4); PHOSPHORUS 2.5 MG/DL (2.3-4.5); POTASSIUM 4.7 MMOL/L (3.5-5.1); SODIUM 143 MMOL/L (135-145); TOTAL CARBON DIOXIDE 22.8 MMOL/L (24-32); TOTAL PROTEIN 5.1 G/DL (6.4-8.2); eGFR 82 ML/MIN
[2018-01-18 06:39] LABS: INR 1.3 INR; PROTHROMBIN TIME 13.4 SECONDS (9.0-12.0)
[2018-01-18] MEDS: sodium bicarbonate 650mg tablet PO SCH ×3 (08:01→20:42)
[2018-01-18] MEDS: loratadine 10mg tablet PO SCH (08:03)
[2018-01-18] MEDS: levoTHYROXINE 75mcg tablet PO SCH (08:03)
[2018-01-18] MEDS: magnesium Cl slow-release 64mg tablet PO SCH ×2 (08:23→20:00)
[2018-01-18] MEDS: lactose-reduced food (Ensure Enlive) - 237ml bottle PO SCH ×3 (08:24→18:00)
[2018-01-18] MEDS: pantoprazole 40mg Tablet.DR PO SCH (08:24)
[2018-01-18] MEDS: calcium carbonate 500mg tablet PO SCH ×3 (08:24→17:05)
[2018-01-18] MEDS: lactobacillus rhamnosus 10,000 MMU CELLS/CAPSULE PO SCH ×2 (08:24→20:41)
[2018-01-18] MEDS: potassium Cl 20 mEq SR tablet PO SCH ×2 (08:24→17:05)
[2018-01-18] MEDS: K and/or MAG REPLACEMENT MC SCH (08:28)
[2018-01-18 11:00] VITALS: BP 135/76
[2018-01-18] MEDS: nystatin 15 GM powder TP SCH ×3 (12:33→20:43)
[2018-01-18] MEDS: potassium CL 20mEq in D5-1/2NS 1,000 ML IV SCH (14:56)
[2018-01-18 15:00] VITALS: BP 143/85
[2018-01-18 18:00] VITALS: BP 126/73
[2018-01-18] MEDS: atorvastatin 10mg tablet PO SCH (20:42)
[2018-01-18] MEDS: sertraline 50mg tablet PO SCH (20:42)
[2018-01-18] MEDS ORDERED: warfarin 3mg tablet PO ONE (21:00)
[2018-01-18 22:00] VITALS: BP 149/87
[2018-01-19 02:30] VITALS: BP 142/85
[2018-01-19 06:00] VITALS: BP 145/83
[2018-01-19 06:23] LABS: BASOPHILS # (AUTO) 0.1 X10'3 (0-0.2); BASOPHILS % (AUTO) 0.4 % (0-1); EOSINOPHILS # (AUTO) 0.7 X10'3 (0-0.9); EOSINOPHILS % (AUTO) 3.7 % (0-6); HEMATOCRIT 27.8 % (42.0-52.0); HEMOGLOBIN 8.8 g/dl (14.0-17.9); LYMPHOCYTES # (AUTO) 1.7 X10'3 (1.1-4.8); LYMPHOCYTES % (AUTO) 9.3 % (21-51); MEAN CORPUSCULAR HEMOGLOBIN 32.8 PG (27.0-31.0); MEAN CORPUSCULAR HGB CONC 31.7 % (33.0-36.5); MEAN CORPUSCULAR VOLUME 103.5 FL (78-98); MEAN PLATELET VOLUME 8.1 FL (7.4-10.4); MONOCYTES # (AUTO) 0.6 X10'3 (0-0.9); MONOCYTES % (AUTO) 3.2 % (2-12); NEUTROPHILS # (AUTO) 15.3 X10'3 (1.8-7.7); NEUTROPHILS % (AUTO) 83.4 % (42-75); PLATELET COUNT 412 X10'3 (140-440); RED BLOOD COUNT 2.69 X10'6 (4.70-6.10); WHITE BLOOD COUNT 18.3 X10'3 (4.5-11.0)
[2018-01-19 06:36] LABS: ALANINE AMINOTRANSFERASE 34 U/L (12-78); ALBUMIN 2.3 G/DL (3.4-5.0); ALBUMIN/GLOBULIN RATIO 0.6 (1.1-1.5); ALKALINE PHOSPHATASE 158 IU/L (46-116); ANION GAP 9 (8-16); ASPARTATE AMINO TRANSFERASE 27 U/L (10-37); BILIRUBIN,TOTAL 0.9 MG/DL (0.1-1.0); BLOOD UREA NITROGEN 17 MG/DL (7-18); BUN/CREATININE RATIO 19.3 (5.4-32.0); CALCIUM 8.3 MG/DL (8.5-10.1); CHLORIDE 108 MMOL/L (99-107); CREATININE 0.88 MG/DL (0.60-1.10); GLUCOSE 90 MG/DL (70-104); MAGNESIUM 1.7 MG/DL (1.5-2.4); PHOSPHORUS 2.1 MG/DL (2.3-4.5); POTASSIUM 4.8 MMOL/L (3.5-5.1); SODIUM 140 MMOL/L (135-145); TOTAL CARBON DIOXIDE 23.1 MMOL/L (24-32); TOTAL PROTEIN 5.9 G/DL (6.4-8.2); eGFR 84 ML/MIN
[2018-01-19 06:37] LABS: INR 1.2 INR; PROTHROMBIN TIME 12.3 SECONDS (9.0-12.0)
[2018-01-19] MEDS: levoTHYROXINE 75mcg tablet PO SCH (07:42)
[2018-01-19] MEDS: calcium carbonate 500mg tablet PO SCH ×3 (07:42→17:52)
[2018-01-19] MEDS: loratadine 10mg tablet PO SCH (07:42)
[2018-01-19] MEDS: lactobacillus rhamnosus 10,000 MMU CELLS/CAPSULE PO SCH ×2 (07:42→21:31)
[2018-01-19] MEDS: pantoprazole 40mg Tablet.DR PO SCH (07:42)
[2018-01-19] MEDS: potassium Cl 20 mEq SR tablet PO SCH ×2 (07:42→17:52)
[2018-01-19] MEDS: sodium bicarbonate 650mg tablet PO SCH ×3 (07:42→21:33)
[2018-01-19] MEDS: lactose-reduced food (Ensure Enlive) - 237ml bottle PO SCH ×3 (07:43→18:00)
[2018-01-19] MEDS: nystatin 15 GM powder TP SCH ×3 (07:43→21:34)
[2018-01-19] MEDS: magnesium Cl slow-release 64mg tablet PO SCH ×2 (07:43→20:00)
[2018-01-19] MEDS: K and/or MAG REPLACEMENT MC SCH (08:00)
[2018-01-19] MEDS ORDERED: magnesium 2GM in 50ml NS 50 ML IV ONE (10:00)
[2018-01-19 11:00] VITALS: BP 175/93
[2018-01-19] MEDS: diphenoxylate/atropine tablet (Lomotil) PO SCH ×2 (12:41→21:33)
[2018-01-19 13:43] LABS: BASOPHILS % (AUTO) 0.3 % (0-1); EOSINOPHILS # (AUTO) 0.3 X10'3 (0-0.9); EOSINOPHILS % (AUTO) 1.4 % (0-6); HEMATOCRIT 28.1 % (42.0-52.0); HEMOGLOBIN 8.9 g/dl (14.0-17.9); LYMPHOCYTES # (AUTO) 1.5 X10'3 (1.1-4.8); LYMPHOCYTES % (AUTO) 8.4 % (21-51); MEAN CORPUSCULAR HEMOGLOBIN 32.9 PG (27.0-31.0); MEAN CORPUSCULAR HGB CONC 31.8 % (33.0-36.5); MEAN CORPUSCULAR VOLUME 103.3 FL (78-98); MEAN PLATELET VOLUME 8.4 FL (7.4-10.4); MONOCYTES # (AUTO) 0.7 X10'3 (0-0.9); MONOCYTES % (AUTO) 3.6 % (2-12); NEUTROPHILS # (AUTO) 15.7 X10'3 (1.8-7.7); NEUTROPHILS % (AUTO) 86.3 % (42-75); PLATELET COUNT 450 X10'3 (140-440); RED BLOOD COUNT 2.72 X10'6 (4.70-6.10); RED CELL DISTRIBUTION WIDTH 27.8 % (11.5-14.5); WHITE BLOOD COUNT 18.2 X10'3 (4.5-11.0)
[2018-01-19 14:00] LABS: PLATELET ESTIMATE INCREASED
[2018-01-19 14:02] LABS: ANISOCYTOSIS 3+; ELLIPTOCYTES FEW; HYPOCHROMASIA 1+; POIKILOCYTOSIS 2+; POLYCHROMASIA 1+; SCHISTOCYTES 1+; SPHEROCYTES 1+; TEAR DROP CELLS 1+
[2018-01-19 15:00] VITALS: BP 129/75
[2018-01-19] MEDS ORDERED: diphenoxylate/atropine tablet (Lomotil) PO SCH (16:25)
[2018-01-19] MEDS ORDERED: sodium phosphate inj. 15 MMOL in dextrose 5%-water 150 ML IV ONE (16:25)
[2018-01-19] MEDS: metroNIDAZOLE 500mg tablet PO SCH (17:00)
[2018-01-19] MEDS: enoxaparin 40mg/0.4ml syringe SUBCUT SCH (17:00)
[2018-01-19 19:00] VITALS: BP 154/95
[2018-01-19] MEDS ORDERED: warfarin 5mg tablet PO ONE (21:00)
[2018-01-19] MEDS: atorvastatin 10mg tablet PO SCH (21:32)
[2018-01-19] MEDS: famotidine 20mg tablet PO SCH (21:33)
[2018-01-19] MEDS: sertraline 50mg tablet PO SCH (21:34)
[2018-01-19 23:00] VITALS: BP 140/95
[2018-01-20 03:00] VITALS: BP 127/74
[2018-01-20 05:59] LABS: BASOPHILS # (AUTO) 0.1 X10'3 (0-0.2); BASOPHILS % (AUTO) 0.2 % (0-1); EOSINOPHILS # (AUTO) 0.5 X10'3 (0-0.9); EOSINOPHILS % (AUTO) 2.5 % (0-6); HEMATOCRIT 27.5 % (42.0-52.0); HEMOGLOBIN 8.9 g/dl (14.0-17.9); LYMPHOCYTES # (AUTO) 1.7 X10'3 (1.1-4.8); LYMPHOCYTES % (AUTO) 8.3 % (21-51); MEAN CORPUSCULAR HEMOGLOBIN 33.3 PG (27.0-31.0); MEAN CORPUSCULAR HGB CONC 32.2 % (33.0-36.5); MEAN CORPUSCULAR VOLUME 103.2 FL (78-98); MEAN PLATELET VOLUME 8.2 FL (7.4-10.4); MONOCYTES # (AUTO) 0.7 X10'3 (0-0.9); MONOCYTES % (AUTO) 3.5 % (2-12); NEUTROPHILS # (AUTO) 17.6 X10'3 (1.8-7.7); NEUTROPHILS % (AUTO) 85.5 % (42-75); PLATELET COUNT 413 X10'3 (140-440); RED BLOOD COUNT 2.66 X10'6 (4.70-6.10); RED CELL DISTRIBUTION WIDTH 27.5 % (11.5-14.5); WHITE BLOOD COUNT 20.6 X10'3 (4.5-11.0)
[2018-01-20 06:00] VITALS: BP 104/64
[2018-01-20 06:08] LABS: INR 1.3 INR; PROTHROMBIN TIME 12.9 SECONDS (9.0-12.0)
[2018-01-20 06:29] LABS: ALANINE AMINOTRANSFERASE 35 U/L (12-78); ALBUMIN 2.2 G/DL (3.4-5.0); ALBUMIN/GLOBULIN RATIO 0.6 (1.1-1.5); ALKALINE PHOSPHATASE 164 IU/L (46-116); ANION GAP 6 (8-16); ASPARTATE AMINO TRANSFERASE 20 U/L (10-37); BLOOD UREA NITROGEN 18 MG/DL (7-18); BUN/CREATININE RATIO 18.9 (5.4-32.0); CALCIUM 8.4 MG/DL (8.5-10.1); CHLORIDE 105 MMOL/L (99-107); CREATININE 0.95 MG/DL (0.60-1.10); GLUCOSE 89 MG/DL (70-104); MAGNESIUM 1.7 MG/DL (1.5-2.4); SODIUM 139 MMOL/L (135-145); TOTAL CARBON DIOXIDE 28.2 MMOL/L (24-32); TOTAL PROTEIN 5.8 G/DL (6.4-8.2); eGFR 76 ML/MIN
[2018-01-20 06:53] LABS: ANISOCYTOSIS 3+; PLATELET ESTIMATE NORMAL
[2018-01-20 06:54] LABS: POLYCHROMASIA 1+
[2018-01-20] MEDS: loratadine 10mg tablet PO SCH (07:38)
[2018-01-20] MEDS: levoTHYROXINE 75mcg tablet PO SCH (07:39)
[2018-01-20] MEDS: lactobacillus rhamnosus 10,000 MMU CELLS/CAPSULE PO SCH ×2 (07:39→20:35)
[2018-01-20] MEDS: calcium carbonate 500mg tablet PO SCH ×3 (07:39→17:30)
[2018-01-20] MEDS: metroNIDAZOLE 500mg tablet PO SCH ×2 (07:39→20:35)
[2018-01-20] MEDS: sodium bicarbonate 650mg tablet PO SCH ×3 (07:39→20:36)
[2018-01-20] MEDS: nystatin 15 GM powder TP SCH ×3 (07:39→20:40)
[2018-01-20] MEDS: diphenoxylate/atropine tablet (Lomotil) PO SCH ×3 (07:39→20:36)
[2018-01-20] MEDS: enoxaparin 40mg/0.4ml syringe SUBCUT SCH (07:40)
[2018-01-20] MEDS: magnesium Cl slow-release 64mg tablet PO SCH ×2 (07:41→20:00)
[2018-01-20] MEDS: potassium Cl 20 mEq SR tablet PO SCH ×2 (07:41→12:45)
[2018-01-20] MEDS: K and/or MAG REPLACEMENT MC SCH (07:41)
[2018-01-20] MEDS: lactose-reduced food (Ensure Enlive) - 237ml bottle PO SCH ×3 (07:41→18:00)
[2018-01-20 11:00] VITALS: BP 128/79
[2018-01-20 15:00] VITALS: BP 102/63
[2018-01-20 15:22] LABS: CLARITY,URINE CLEAR (Clear); COLOR,URINE YELLOW (Yellow); GLUCOSE, URINE NEGATIVE (Neg); KETONES,URINE NEGATIVE (Neg); LEUKOCYTE ESTERASE ,URINE TRACE (Neg); NITRITES, URINE NEGATIVE (Neg); OCCULT BLOOD,URINE SMALL (Neg); PROTEIN,URINE TRACE mg/dl (Neg); UROBILINOGEN,URINE 0.2 E.U/dL (0.2-1.0)
[2018-01-20 15:31] LABS: UA COLLECTION TYPE CLN CATCH MIDSTREAM
[2018-01-20 15:34] LABS: RBC,URINE 0-2 /HPF (0-2)
[2018-01-20 15:35] LABS: BACTERIA,URINE FEW /HPF (Neg); SQUAMOUS EPITHELIAL CELL,UR FEW /LPF (FEW)
[2018-01-20 19:00] VITALS: BP 116/64
[2018-01-20] MEDS: famotidine 20mg tablet PO SCH (20:35)
[2018-01-20] MEDS: sertraline 50mg tablet PO SCH (20:36)
[2018-01-20] MEDS: atorvastatin 10mg tablet PO SCH (20:39)
[2018-01-20] MEDS ORDERED: warfarin 1mg tablet PO ONE (21:00)
[2018-01-20] MEDS ORDERED: warfarin 5mg tablet PO ONE (21:00)
[2018-01-20 23:00] VITALS: BP 100/60
[2018-01-21] VITALS (7 sets, daily range): BP systolic 93–125; BP diastolic 45–70
[2018-01-21 06:09] LABS: BASOPHILS % (AUTO) 0.4 % (0-1); EOSINOPHILS # (AUTO) 0.6 X10'3 (0-0.9); EOSINOPHILS % (AUTO) 4.8 % (0-6); HEMATOCRIT 24.2 % (42.0-52.0); HEMOGLOBIN 7.7 g/dl (14.0-17.9); LYMPHOCYTES # (AUTO) 1.7 X10'3 (1.1-4.8); LYMPHOCYTES % (AUTO) 14.5 % (21-51); MEAN CORPUSCULAR VOLUME 103.2 FL (78-98); MEAN PLATELET VOLUME 8.1 FL (7.4-10.4); MONOCYTES # (AUTO) 0.6 X10'3 (0-0.9); MONOCYTES % (AUTO) 5.3 % (2-12); NEUTROPHILS # (AUTO) 8.6 X10'3 (1.8-7.7); PLATELET COUNT 386 X10'3 (140-440); RED BLOOD COUNT 2.34 X10'6 (4.70-6.10); RED CELL DISTRIBUTION WIDTH 26.5 % (11.5-14.5); WHITE BLOOD COUNT 11.5 X10'3 (4.5-11.0)
[2018-01-21 06:21] LABS: INR 1.7 INR; PROTHROMBIN TIME 16.8 SECONDS (9.0-12.0)
[2018-01-21 06:44] LABS: ALANINE AMINOTRANSFERASE 25 U/L (12-78); ALBUMIN/GLOBULIN RATIO 0.6 (1.1-1.5); ANION GAP 5 (8-16); ASPARTATE AMINO TRANSFERASE 16 U/L (10-37); BILIRUBIN,TOTAL 0.5 MG/DL (0.1-1.0); BLOOD UREA NITROGEN 23 MG/DL (7-18); BUN/CREATININE RATIO 22.8 (5.4-32.0); CHLORIDE 104 MMOL/L (99-107); CREATININE 1.01 MG/DL (0.60-1.10); GLUCOSE 89 MG/DL (70-104); MAGNESIUM 1.7 MG/DL (1.5-2.4); PHOSPHORUS 3.3 MG/DL (2.3-4.5); POTASSIUM 4.9 MMOL/L (3.5-5.1); SODIUM 140 MMOL/L (135-145); TOTAL CARBON DIOXIDE 30.9 MMOL/L (24-32); TOTAL PROTEIN 5.4 G/DL (6.4-8.2); eGFR 71 ML/MIN
[2018-01-21 06:45] LABS: ALKALINE PHOSPHATASE 159 IU/L (46-116)
[2018-01-21] MEDS: K and/or MAG REPLACEMENT MC SCH (06:55)
[2018-01-21 07:20] LABS: ANISOCYTOSIS 3+; HYPOCHROMASIA 1+; PLATELET ESTIMATE NORMAL
[2018-01-21] MEDS: levoTHYROXINE 75mcg tablet PO SCH (07:51)
[2018-01-21] MEDS: loratadine 10mg tablet PO SCH (07:51)
[2018-01-21] MEDS: lactose-reduced food (Ensure Enlive) - 237ml bottle PO SCH ×3 (07:51→17:46)
[2018-01-21] MEDS: metroNIDAZOLE 500mg tablet PO SCH ×2 (07:51→19:54)
[2018-01-21] MEDS: lactobacillus rhamnosus 10,000 MMU CELLS/CAPSULE PO SCH ×2 (07:51→19:53)
[2018-01-21] MEDS: diphenoxylate/atropine tablet (Lomotil) PO SCH (07:52)
[2018-01-21] MEDS: sodium bicarbonate 650mg tablet PO SCH ×2 (07:53→13:02)
[2018-01-21] MEDS: enoxaparin 40mg/0.4ml syringe SUBCUT SCH (07:55)
[2018-01-21] MEDS: nystatin 15 GM powder TP SCH ×3 (07:55→20:48)
[2018-01-21] MEDS: calcium carbonate 500mg tablet PO SCH ×3 (07:56→17:46)
[2018-01-21] MEDS: magnesium Cl slow-release 64mg tablet PO SCH ×2 (08:00→19:54)
[2018-01-21] MEDS: potassium Cl 20 mEq SR tablet PO SCH ×2 (08:30→17:21)
[2018-01-21] MEDS: loperamide 2mg capsule PO SCH ×3 (09:30→19:54)
[2018-01-21] MEDS: atorvastatin 10mg tablet PO SCH (20:48)
[2018-01-21] MEDS: famotidine 20mg tablet PO SCH (20:48)
[2018-01-21] MEDS: sertraline 50mg tablet PO SCH (20:49)
[2018-01-21] MEDS ORDERED: warfarin 3mg tablet PO ONE (21:00)
[2018-01-22] MEDS: loperamide 2mg capsule PO SCH ×4 (02:08→20:26)
[2018-01-22 03:00] VITALS: BP 103/63
[2018-01-22 06:00] VITALS: BP 117/67
[2018-01-22] MEDS: levoTHYROXINE 75mcg tablet PO SCH (07:25)
[2018-01-22] MEDS: lactobacillus rhamnosus 10,000 MMU CELLS/CAPSULE PO SCH ×2 (07:26→20:26)
[2018-01-22] MEDS: loratadine 10mg tablet PO SCH (07:26)
[2018-01-22] MEDS: metroNIDAZOLE 500mg tablet PO SCH ×2 (07:26→20:26)
[2018-01-22] MEDS: magnesium Cl slow-release 64mg tablet PO SCH ×2 (07:29→20:00)
[2018-01-22] MEDS: enoxaparin 40mg/0.4ml syringe SUBCUT SCH (07:32)
[2018-01-22 07:37] LABS: INR 2.1 INR; PROTHROMBIN TIME 20.9 SECONDS (9.0-12.0)
[2018-01-22] MEDS: K and/or MAG REPLACEMENT MC SCH (08:00)
[2018-01-22] MEDS: potassium Cl 20 mEq SR tablet PO SCH ×2 (08:30→17:00)
[2018-01-22] MEDS: lactose-reduced food (Ensure Enlive) - 237ml bottle PO SCH ×3 (08:31→17:20)
[2018-01-22] MEDS: calcium carbonate 500mg tablet PO SCH ×3 (08:58→17:20)
[2018-01-22] MEDS: nystatin 15 GM powder TP SCH ×3 (08:59→20:31)
[2018-01-22 09:51] LABS: ALBUMIN 2.2 G/DL (3.4-5.0); ANION GAP 7 (8-16); BASOPHILS # (AUTO) 0.1 X10'3 (0-0.2); BASOPHILS % (AUTO) 0.6 % (0-1); BLOOD UREA NITROGEN 16 MG/DL (7-18); BUN/CREATININE RATIO 15.5 (5.4-32.0); CALCIUM 8.4 MG/DL (8.5-10.1); CHLORIDE 104 MMOL/L (99-107); CREATININE 1.03 MG/DL (0.60-1.10); EOSINOPHILS # (AUTO) 0.5 X10'3 (0-0.9); EOSINOPHILS % (AUTO) 6.3 % (0-6); GLUCOSE 86 MG/DL (70-104); HEMATOCRIT 26.2 % (42.0-52.0); HEMOGLOBIN 8.4 g/dl (14.0-17.9); LYMPHOCYTES # (AUTO) 1.3 X10'3 (1.1-4.8); MEAN CORPUSCULAR VOLUME 103.2 FL (78-98); MEAN PLATELET VOLUME 8.3 FL (7.4-10.4); MONOCYTES # (AUTO) 0.5 X10'3 (0-0.9); MONOCYTES % (AUTO) 5.4 % (2-12); NEUTROPHILS # (AUTO) 6.3 X10'3 (1.8-7.7); NEUTROPHILS % (AUTO) 72.7 % (42-75); PLATELET COUNT 419 X10'3 (140-440); POTASSIUM 5.4 MMOL/L (3.5-5.1); RED BLOOD COUNT 2.54 X10'6 (4.70-6.10); RED CELL DISTRIBUTION WIDTH 26.2 % (11.5-14.5); SODIUM 141 MMOL/L (135-145); TOTAL CARBON DIOXIDE 30.4 MMOL/L (24-32); WHITE BLOOD COUNT 8.7 X10'3 (4.5-11.0); eGFR 70 ML/MIN
[2018-01-22 11:00] VITALS: BP_SYST 127; BP_SYST 155; BP_DIAS 66; BP_DIAS 97
[2018-01-22] MEDS ORDERED: CALC-1051 PO (13:01)
[2018-01-22] MEDS ORDERED: LOPE2CAP PO (13:01)
[2018-01-22 14:50] LABS: ANISOCYTOSIS 3+; PLATELET ESTIMATE NORMAL
[2018-01-22 14:51] LABS: SCHISTOCYTES FEW
[2018-01-22 14:52] LABS: ELLIPTOCYTES FEW; HYPOCHROMASIA 1+; POLYCHROMASIA FEW; TEAR DROP CELLS FEW
[2018-01-22 15:00] VITALS: BP 120/67
[2018-01-22 18:00] VITALS: BP 131/77
[2018-01-22] MEDS: sertraline 50mg tablet PO SCH (20:26)
[2018-01-22] MEDS: atorvastatin 10mg tablet PO SCH (20:27)
[2018-01-22] MEDS: famotidine 20mg tablet PO SCH (20:27)
[2018-01-22] MEDS ORDERED: warfarin 3mg tablet PO ONE (21:00)
[2018-01-22 22:00] VITALS: BP 119/70
[2018-01-23 02:00] VITALS: BP 115/71
[2018-01-23] MEDS: loperamide 2mg capsule PO SCH ×3 (02:13→13:26)
[2018-01-23 06:00] VITALS: BP 116/64
[2018-01-23 06:06] LABS: BASOPHILS # (AUTO) 0.1 X10'3 (0-0.2); BASOPHILS % (AUTO) 0.7 % (0-1); EOSINOPHILS # (AUTO) 0.6 X10'3 (0-0.9); EOSINOPHILS % (AUTO) 5.8 % (0-6); HEMATOCRIT 29.4 % (42.0-52.0); HEMOGLOBIN 9.3 g/dl (14.0-17.9); LYMPHOCYTES # (AUTO) 1.5 X10'3 (1.1-4.8); LYMPHOCYTES % (AUTO) 15.5 % (21-51); MEAN CORPUSCULAR HEMOGLOBIN 32.5 PG (27.0-31.0); MEAN CORPUSCULAR HGB CONC 31.5 % (33.0-36.5); MEAN CORPUSCULAR VOLUME 103.2 FL (78-98); MEAN PLATELET VOLUME 8.3 FL (7.4-10.4); MONOCYTES # (AUTO) 0.5 X10'3 (0-0.9); NEUTROPHILS # (AUTO) 7.2 X10'3 (1.8-7.7); PLATELET COUNT 423 X10'3 (140-440); RED BLOOD COUNT 2.85 X10'6 (4.70-6.10); RED CELL DISTRIBUTION WIDTH 24.7 % (11.5-14.5); WHITE BLOOD COUNT 9.8 X10'3 (4.5-11.0)
[2018-01-23 06:16] LABS: INR 2.4 INR; PROTHROMBIN TIME 23.6 SECONDS (9.0-12.0)
[2018-01-23 06:20] LABS: ALBUMIN 2.4 G/DL (3.4-5.0); ANION GAP 5 (8-16); BLOOD UREA NITROGEN 16 MG/DL (7-18); BUN/CREATININE RATIO 13.3 (5.4-32.0); CALCIUM 8.6 MG/DL (8.5-10.1); CHLORIDE 104 MMOL/L (99-107); GLUCOSE 87 MG/DL (70-104); POTASSIUM 5.4 MMOL/L (3.5-5.1); SODIUM 140 MMOL/L (135-145); TOTAL CARBON DIOXIDE 31.1 MMOL/L (24-32); eGFR 58 ML/MIN
[2018-01-23 06:50] LABS: ANISOCYTOSIS 3+; PLATELET ESTIMATE NORMAL
[2018-01-23] MEDS: K and/or MAG REPLACEMENT MC SCH (08:00)
[2018-01-23] MEDS: magnesium Cl slow-release 64mg tablet PO SCH (08:00)
[2018-01-23] MEDS: loratadine 10mg tablet PO SCH (08:16)
[2018-01-23] MEDS: calcium carbonate 500mg tablet PO SCH ×2 (08:16→12:18)
[2018-01-23] MEDS: lactobacillus rhamnosus 10,000 MMU CELLS/CAPSULE PO SCH (08:16)
[2018-01-23] MEDS: metroNIDAZOLE 500mg tablet PO SCH (08:16)
[2018-01-23] MEDS: lactose-reduced food (Ensure Enlive) - 237ml bottle PO SCH ×3 (08:16→13:26)
[2018-01-23] MEDS: nystatin 15 GM powder TP SCH ×2 (08:16→12:18)
[2018-01-23] MEDS: levoTHYROXINE 75mcg tablet PO SCH (08:20)
[2018-01-23] MEDS: potassium Cl 20 mEq SR tablet PO SCH (08:30)
[2018-01-23 11:00] VITALS: BP 113/65
[2018-01-23] MEDS ORDERED: warfarin 1mg tablet PO ONE (21:00)
== END 2018-01-23 14:25 | disposition home or self-care (01) | DRG 393 ==
LOC: ER 11:17 → ED HOLD 14:18 → PCU 3S 19:50 → CMPBEDREQ 19:55 → PCU 3S 01-07 09:33
PROVIDERS: ADMIT Family Medicine; ATTEND Family Medicine
PROC: 3E0234Z Introduction of Serum, Toxoid and Vaccine into Muscle, Percutaneous Approach (ICD-10-PCS; principal; 2018-01-06)
PROC: 3E02340 Introduction of Influenza Vaccine into Muscle, Percutaneous Approach (ICD-10-PCS; 2018-01-06)
PROC: 30233N1 Transfusion of Nonautologous Red Blood Cells into Peripheral Vein, Percutaneous Approach (ICD-10-PCS; 2018-01-06)
DX: K52.1 Toxic gastroenteritis and colitis (principal); J18.1 Lobar pneumonia, unspecified organism; E43 Unspecified severe protein-calorie malnutrition; N17.9 Acute kidney failure, unspecified; N39.0 Urinary tract infection, site not specified; D68.9 Coagulation defect, unspecified; E87.2 Acidosis; E87.0 Hyperosmolality and hypernatremia; K91.2 Postsurgical malabsorption, not elsewhere classified; I82.5Z2 Chronic embolism and thrombosis of unspecified deep veins of left distal lower extremity; J44.0 Chronic obstructive pulmonary disease with (acute) lower respiratory infection; N13.30 Unspecified hydronephrosis; D53.9 Nutritional anemia, unspecified; E83.51 Hypocalcemia; E87.6 Hypokalemia; E83.42 Hypomagnesemia; E83.39 Other disorders of phosphorus metabolism; E78.00 Pure hypercholesterolemia, unspecified; I25.10 Atherosclerotic heart disease of native coronary artery without angina pectoris; E03.9 Hypothyroidism, unspecified; T47.4X5A Adverse effect of other laxatives, initial encounter; E78.5 Hyperlipidemia, unspecified; G89.29 Other chronic pain; N32.89 Other specified disorders of bladder; B96.89 Other specified bacterial agents as the cause of diseases classified elsewhere; N31.9 Neuromuscular dysfunction of bladder, unspecified; I48.91 Unspecified atrial fibrillation; I12.9 Hypertensive chronic kidney disease with stage 1 through stage 4 chronic kidney disease, or unspecified chronic kidney disease; E86.0 Dehydration; N18.9 Chronic kidney disease, unspecified; E53.8 Deficiency of other specified B group vitamins; Z74.01 Bed confinement status; Z99.3 Dependence on wheelchair; Z99.81 Dependence on supplemental oxygen; Z23 Encounter for immunization; Z90.49 Acquired absence of other specified parts of digestive tract; Z79.01 Long term (current) use of anticoagulants; Z88.5 Allergy status to narcotic agent; Z91.011 Allergy to milk products; Z88.0 Allergy status to penicillin; Z91.018 Allergy to other foods; Z86.73 Personal history of transient ischemic attack (TIA), and cerebral infarction without residual deficits; Y92.89 Other specified places as the place of occurrence of the external cause; Z68.24 Body mass index [BMI] 24.0-24.9, adult
CPT/HCPCS: 36415; 71046; 74018; 74176; 80048; 80053; 81001; 82272; 82310; 82330; 82607; 82746; 82948; 82977; 83036; 83540; 83550; 83735; 83880; 83970; 84100; 84132; 84443; 84484; 85025; 85610; 85730; 86885; 86900; 86901; 86920; 87045; 87046; 87070; 87077; 87088; 87186; 87324; 87449; 89055; 90732; 92616; 93005; 94760; 97110; 97116; 97161; 97530; 99285; G0378; J0360; J0610; J0692; J0696; J1650; J2405; J3420; J3475; J3480; J3490; J7030; J7060; P9016; Q9963

== ENCOUNTER 2018-09-23 11:02 | Inpatient (IN) | payer MEDICARE, MEDICAID ==
[~2018-09-23] VITALS: Ht 157.5 cm; Wt 58.0 kg
[~2018-09-23 11:02] MED LIST changes: +CALC-1051 PO; +LOPE2CAP PO; -POLY17PO10 PO; -SPIIN IH; -WARF-65 PO
[2018-09-23 11:58] LABS: BASOPHILS % (AUTO) 0.4 % (0-1); EOSINOPHILS # (AUTO) 0.2 X10'3 (0-0.9); EOSINOPHILS % (AUTO) 1.5 % (0-6); HEMATOCRIT 36.3 % (42.0-52.0); HEMOGLOBIN 12.3 g/dl (14.0-17.9); LYMPHOCYTES # (AUTO) 1.3 X10'3 (1.1-4.8); LYMPHOCYTES % (AUTO) 9.5 % (21-51); MEAN CORPUSCULAR HEMOGLOBIN 34.5 PG (27.0-31.0); MEAN CORPUSCULAR VOLUME 101.5 FL (78-98); MEAN PLATELET VOLUME 8.6 FL (7.4-10.4); MONOCYTES # (AUTO) 0.9 X10'3 (0-0.9); MONOCYTES % (AUTO) 6.9 % (2-12); NEUTROPHILS # (AUTO) 10.8 X10'3 (1.8-7.7); NEUTROPHILS % (AUTO) 81.7 % (42-75); PLATELET COUNT 287 X10'3 (140-440); RED BLOOD COUNT 3.58 X10'6 (4.70-6.10); RED CELL DISTRIBUTION WIDTH 17.3 % (11.5-14.5); WHITE BLOOD COUNT 13.2 X10'3 (4.5-11.0)
[2018-09-23 12:14] LABS: ALANINE AMINOTRANSFERASE 27 U/L (12-78); ALBUMIN 3.3 G/DL (3.4-5.0); ALBUMIN/GLOBULIN RATIO 0.9 (1.1-1.5); ALKALINE PHOSPHATASE 134 IU/L (46-116); ANION GAP 17 (8-16); ASPARTATE AMINO TRANSFERASE 16 U/L (10-37); BILIRUBIN,TOTAL 3.2 MG/DL (0.1-1.0); BLOOD UREA NITROGEN 14 MG/DL (7-18); BUN/CREATININE RATIO 8.9 (5.4-32.0); CHLORIDE 110 MMOL/L (99-107); CREATININE 1.57 MG/DL (0.60-1.10); GLUCOSE 91 MG/DL (70-104); SODIUM 146 MMOL/L (135-145); TOTAL CARBON DIOXIDE 18.8 MMOL/L (24-32); TOTAL PROTEIN 6.8 G/DL (6.4-8.2); eGFR 43 ML/MIN
[2018-09-23 12:18] LABS: CALCIUM 5.1 MG/DL (8.5-10.1); POTASSIUM 2.1 MMOL/L (3.5-5.1)
[2018-09-23] MEDS ORDERED: potassium 10mEq/100ml NS w/LIDOcaine (10mg/bag) IV SCH (12:55)
[2018-09-23] MEDS ORDERED: calcium gluconate inj. 1 GM in normal saline 100ml IV soln 90 ML IV ONE ×2 (13:15→17:35)
[2018-09-23] MEDS: potassium Cl 10 mEq/100mL bag IV SCH ×2 (13:24→15:09)
[2018-09-23 13:26] LABS: MAGNESIUM 0.4 MG/DL (1.5-2.4)
[2018-09-23] MEDS ORDERED: magnesium 2GM in 50ml NS 50 ML IV PRN (13:35)
[2018-09-23] MEDS ORDERED: ondansetron/PF 4mg/2ml inj IV PRN (13:35)
[2018-09-23] MEDS ORDERED: magnesium hydroxide 30ml (MOM) UD suspension PO PRN (13:35)
[2018-09-23] MEDS ORDERED: acetaminophen 325mg tablet PO PRN (13:35)
[2018-09-23] MEDS ORDERED: potassium CL 10mEq/100ml bag 100 ML IV PRN (13:35)
[2018-09-23] MEDS ORDERED: mag hydrox/Alum hydrox/simeth 30ml oral suspension PO PRN (13:35)
[2018-09-23] MEDS ORDERED: magnesium 4gm in 100ml NS 100 ML IV PRN (13:35)
[2018-09-23] MEDS ORDERED: COU1T PO (13:52)
[2018-09-23] MEDS: normal saline 1000ml 1,000 ML IV SCH (14:10)
[2018-09-23 15:00] VITALS: BP 134/71
--- NOTE | 2018-09-23 16:57 | NUR ---
Patient has not urinated yet for several hours, bladder scan shows >251ml, bladder mildly distended. Paged Dr. Gimenez to let him know and to request order for straight cath
[2018-09-23 17:22] LABS: CALCIUM 5.5 MG/DL (8.5-10.1)
--- NOTE | 2018-09-23 17:23 | NUR ---
Paged Dr. Gimenez regarding critical value K of 2.0 and Ca of 5.5
[2018-09-23 17:31] LABS: PHOSPHORUS 3.5 MG/DL (2.3-4.5)
--- NOTE | 2018-09-23 18:07 | NUR ---
Patient requested not to have the straight cath done until after he finished his dinner
--- NOTE | 2018-09-23 18:50 | NUR ---
Problems reprioritized. Patient report given, questions answered & plan of care reviewed with Alta SANTA.
[2018-09-23 19:00] VITALS: BP 128/67
[2018-09-23] MEDS ORDERED: non-formulary drug (Simvastatin* (Zocor*) 20 MG) PO SCH (21:00)
[2018-09-23] MEDS ORDERED: SERTRALINE HCL 100 MG PO SCH (21:00)
[2018-09-23] MEDS: potassium Cl 20 mEq SR tablet PO PRN (21:18)
[2018-09-23] MEDS: sertraline 50mg tablet PO SCH (21:18)
[2018-09-23] MEDS: levetiracetam 250mg tablet PO SCH (21:19)
[2018-09-23] MEDS: heparin, porcine 5000 units/ml vial SQ SCH (21:21)
[2018-09-23 22:45] LABS: CLARITY,URINE SLIGHTLY CLOUDY (Clear); COLOR,URINE YELLOW (Yellow); GLUCOSE, URINE NEGATIVE (Neg); KETONES,URINE NEGATIVE (Neg); LEUKOCYTE ESTERASE ,URINE LARGE (Neg); NITRITES, URINE NEGATIVE (Neg); OCCULT BLOOD,URINE LARGE (Neg); PH,URINE 6.5 (4.8-8.0); PROTEIN,URINE 30 mg/dl (Neg); UROBILINOGEN,URINE 0.2 E.U/dL (0.2-1.0)
[2018-09-23 22:48] LABS: UA COLLECTION TYPE CLN CATCH MIDSTREAM
[2018-09-23 22:56] LABS: SQUAMOUS EPITHELIAL CELL,UR MODERATE /LPF (FEW)
[2018-09-23 23:00] VITALS: BP 123/70
[2018-09-23 23:00] LABS: RBC,URINE 50-100 /HPF (0-2)
[2018-09-23 23:01] LABS: BACTERIA,URINE 3+ /HPF (Neg)
[2018-09-23 23:03] LABS: WBC CLUMPS,URINE FEW /HPF (NEGATIVE); WBC,URINE TNTC /HPF (0-4)
[2018-09-24] MEDS: potassium Cl 20 mEq SR tablet PO PRN ×5 (02:44→23:36)
[2018-09-24 03:00] VITALS: BP 148/67
[2018-09-24] MEDS: normal saline 1000ml 1,000 ML IV SCH ×2 (04:02→21:31)
[2018-09-24 04:43] LABS: BASOPHILS % (AUTO) 0.3 % (0-1); EOSINOPHILS # (AUTO) 0.3 X10'3 (0-0.9); EOSINOPHILS % (AUTO) 2.6 % (0-6); HEMATOCRIT 33.4 % (42.0-52.0); HEMOGLOBIN 11.4 g/dl (14.0-17.9); LYMPHOCYTES # (AUTO) 0.8 X10'3 (1.1-4.8); LYMPHOCYTES % (AUTO) 6.6 % (21-51); MEAN CORPUSCULAR HEMOGLOBIN 34.6 PG (27.0-31.0); MEAN CORPUSCULAR HGB CONC 34.3 g/dL (33.0-36.5); MEAN CORPUSCULAR VOLUME 100.8 FL (78-98); MEAN PLATELET VOLUME 8.8 FL (7.4-10.4); MONOCYTES # (AUTO) 0.8 X10'3 (0-0.9); MONOCYTES % (AUTO) 6.4 % (2-12); NEUTROPHILS # (AUTO) 10.2 X10'3 (1.8-7.7); NEUTROPHILS % (AUTO) 84.1 % (42-75); PLATELET COUNT 273 X10'3 (140-440); RED BLOOD COUNT 3.31 X10'6 (4.70-6.10); RED CELL DISTRIBUTION WIDTH 17.6 % (11.5-14.5); WHITE BLOOD COUNT 12.1 X10'3 (4.5-11.0)
[2018-09-24 04:50] LABS: ALANINE AMINOTRANSFERASE 24 U/L (12-78); ALBUMIN 2.9 G/DL (3.4-5.0); ALBUMIN/GLOBULIN RATIO 0.9 (1.1-1.5); ALKALINE PHOSPHATASE 128 IU/L (46-116); ANION GAP 13 (8-16); ASPARTATE AMINO TRANSFERASE 18 U/L (10-37); BILIRUBIN,TOTAL 2.4 MG/DL (0.1-1.0); BLOOD UREA NITROGEN 15 MG/DL (7-18); BUN/CREATININE RATIO 8.7 (5.4-32.0); CALCIUM 6.1 MG/DL (8.5-10.1); CHLORIDE 112 MMOL/L (99-107); CREATININE 1.72 MG/DL (0.60-1.10); GLUCOSE 138 MG/DL (70-104); MAGNESIUM 2.1 MG/DL (1.5-2.4); SODIUM 143 MMOL/L (135-145); TOTAL CARBON DIOXIDE 17.6 MMOL/L (24-32); eGFR 39 ML/MIN
[2018-09-24 04:54] LABS: POTASSIUM 2.4 MMOL/L (3.5-5.1)
[2018-09-24 06:00] VITALS: BP 118/64
--- NOTE | 2018-09-24 06:00 | NUR ---
Patient in room PCU 3011. I have received report from Alta SANTA and had the opportunity to ask questions and assume patient care.
--- NOTE | 2018-09-24 06:22 | NUR ---
Problems reprioritized. Patient report given, questions answered & plan of care reviewed with Ursula SANTA and Octavia SANTA.
[2018-09-24] MEDS: levoTHYROXINE 75mcg tablet PO SCH (07:57)
[2018-09-24] MEDS: pantoprazole 40mg Tablet.DR PO SCH (07:57)
[2018-09-24] MEDS: heparin, porcine 5000 units/ml vial SQ SCH ×2 (07:59→21:35)
[2018-09-24] MEDS ORDERED: LEVOTHYROXINE SODIUM 150 MCG PO SCH (08:00)
[2018-09-24] MEDS: levetiracetam 250mg tablet PO SCH ×2 (08:00→20:00)
[2018-09-24] MEDS ORDERED: pneumococcal 23-VAL P-sac vacc 25 mcg/0.5ml vial IMVAC ONE (09:00)
[2018-09-24] MEDS: CefTRIAXone 2gm/D5W 50ml 50 ML IV SCH (09:54)
[2018-09-24] MEDS: calcium carbonate 500mg tablet PO SCH ×3 (09:54→17:57)
[2018-09-24 11:00] VITALS: BP 132/68
--- NOTE | 2018-09-24 15:56 | NUR ---
Page to Dr Gimenez re: Room 3011 Rashid Gomez did you want to keep Keppra order? Not on pt's home med list, please advise Ursula 2100
--- NOTE | 2018-09-24 18:00 | NUR ---
Problems reprioritized. Patient report given, questions answered & plan of care reviewed with Alta SANTA.
--- NOTE | 2018-09-24 18:15 | NUR ---
Patient in room PCU 3011. I have received report from Luna SANTA and had the opportunity to ask questions and assume patient care. Patient is resting, will continue to monitor.
[2018-09-24 18:44] VITALS: BP 115/60
[2018-09-24] MEDS: lactobacillus rhamnosus 10,000 MMU CELLS/CAPSULE PO SCH (21:32)
[2018-09-24] MEDS: atorvastatin 10mg tablet PO SCH (21:32)
[2018-09-24] MEDS: sertraline 50mg tablet PO SCH (21:34)
[2018-09-24 23:11] VITALS: BP 106/62
[2018-09-25 02:54] VITALS: BP 117/66
[2018-09-25] MEDS: potassium Cl 20 mEq SR tablet PO PRN ×4 (05:14→21:49)
[2018-09-25 06:00] VITALS: BP 121/52
--- NOTE | 2018-09-25 06:00 | NUR ---
Patient in room PCU 3011. I have received report from Alta SANTA and had the opportunity to ask questions and assume patient care.
--- NOTE | 2018-09-25 06:22 | NUR ---
Problems reprioritized. Patient report given, questions answered & plan of care reviewed with Ursula SANTA.
[2018-09-25 06:28] LABS: BASOPHILS % (AUTO) 0.2 % (0-1); EOSINOPHILS # (AUTO) 0.4 X10'3 (0-0.9); EOSINOPHILS % (AUTO) 4.9 % (0-6); HEMATOCRIT 30.2 % (42.0-52.0); HEMOGLOBIN 10.4 g/dl (14.0-17.9); LYMPHOCYTES # (AUTO) 1.9 X10'3 (1.1-4.8); LYMPHOCYTES % (AUTO) 20.5 % (21-51); MEAN CORPUSCULAR HEMOGLOBIN 35.4 PG (27.0-31.0); MEAN CORPUSCULAR HGB CONC 34.3 g/dL (33.0-36.5); MEAN PLATELET VOLUME 8.5 FL (7.4-10.4); MONOCYTES # (AUTO) 0.9 X10'3 (0-0.9); NEUTROPHILS # (AUTO) 5.9 X10'3 (1.8-7.7); NEUTROPHILS % (AUTO) 64.4 % (42-75); PLATELET COUNT 233 X10'3 (140-440); RED BLOOD COUNT 2.93 X10'6 (4.70-6.10); RED CELL DISTRIBUTION WIDTH 18.2 % (11.5-14.5); WHITE BLOOD COUNT 9.1 X10'3 (4.5-11.0)
[2018-09-25 06:29] LABS: ALANINE AMINOTRANSFERASE 21 U/L (12-78); ALBUMIN 2.5 G/DL (3.4-5.0); ALBUMIN/GLOBULIN RATIO 0.8 (1.1-1.5); ALKALINE PHOSPHATASE 118 IU/L (46-116); ANION GAP 10 (8-16); ASPARTATE AMINO TRANSFERASE 16 U/L (10-37); BILIRUBIN,TOTAL 1.1 MG/DL (0.1-1.0); BLOOD UREA NITROGEN 11 MG/DL (7-18); BUN/CREATININE RATIO 7.3 (5.4-32.0); CALCIUM 6.8 MG/DL (8.5-10.1); CHLORIDE 120 MMOL/L (99-107); CREATININE 1.51 MG/DL (0.60-1.10); GLUCOSE 110 MG/DL (70-104); MAGNESIUM 1.9 MG/DL (1.5-2.4); POTASSIUM 3.2 MMOL/L (3.5-5.1); SODIUM 147 MMOL/L (135-145); TOTAL CARBON DIOXIDE 17.2 MMOL/L (24-32); TOTAL PROTEIN 5.5 G/DL (6.4-8.2); eGFR 45 ML/MIN
[2018-09-25] MEDS: pantoprazole 40mg Tablet.DR PO SCH (10:01)
[2018-09-25] MEDS: lactobacillus rhamnosus 10,000 MMU CELLS/CAPSULE PO SCH ×2 (10:01→20:47)
[2018-09-25] MEDS: CefTRIAXone 2gm/D5W 50ml 50 ML IV SCH (10:01)
[2018-09-25] MEDS: levoTHYROXINE 75mcg tablet PO SCH (10:02)
[2018-09-25] MEDS: calcium carbonate 500mg tablet PO SCH ×3 (10:02→17:06)
[2018-09-25] MEDS: levetiracetam 250mg tablet PO SCH ×2 (10:02→20:00)
[2018-09-25] MEDS: heparin, porcine 5000 units/ml vial SQ SCH ×2 (10:02→20:47)
[2018-09-25 11:00] VITALS: BP 116/58
[2018-09-25] MEDS: sodium chloride 0.45% 1,000 ML IV SCH (13:19)
[2018-09-25 15:00] VITALS: BP 108/55
[2018-09-25] MEDS: metroNIDAZOLE-Flagyl 500mg/NS 100 ML IV SCH (17:07)
--- NOTE | 2018-09-25 18:22 | NUR ---
Problems reprioritized. Patient report given, questions answered & plan of care reviewed with Katrina SANTA.
[2018-09-25 19:00] VITALS: BP 112/41
[2018-09-25] MEDS: atorvastatin 10mg tablet PO SCH (20:47)
[2018-09-25] MEDS: sertraline 50mg tablet PO SCH (20:59)
[2018-09-25 23:00] VITALS: BP 99/56
[2018-09-26] MEDS: metroNIDAZOLE-Flagyl 500mg/NS 100 ML IV SCH ×2 (00:19→09:14)
--- NOTE | 2018-09-26 02:00 | NUR ---
pt c/o pain on the R IV side, assessed with NS flush and flushed well. IV still working well, will continue to monitor
[2018-09-26 03:00] VITALS: BP 107/57
[2018-09-26 06:00] VITALS: BP 131/65
--- NOTE | 2018-09-26 06:00 | NUR ---
Patient in room PCU 3011. I have received report from Katrina SANTA and had the opportunity to ask questions and assume patient care.
[2018-09-26 06:39] LABS: ALANINE AMINOTRANSFERASE 18 U/L (12-78); ALBUMIN 2.4 G/DL (3.4-5.0); ALBUMIN/GLOBULIN RATIO 0.8 (1.1-1.5); ALKALINE PHOSPHATASE 117 IU/L (46-116); ANION GAP 12 (8-16); ASPARTATE AMINO TRANSFERASE 8 U/L (10-37); BILIRUBIN,TOTAL 0.6 MG/DL (0.1-1.0); BLOOD UREA NITROGEN 8 MG/DL (7-18); BUN/CREATININE RATIO 5.8 (5.4-32.0); CALCIUM 7.3 MG/DL (8.5-10.1); CHLORIDE 121 MMOL/L (99-107); CREATININE 1.39 MG/DL (0.60-1.10); GLUCOSE 97 MG/DL (70-104); MAGNESIUM 1.6 MG/DL (1.5-2.4); POTASSIUM 4.1 MMOL/L (3.5-5.1); SODIUM 148 MMOL/L (135-145); TOTAL CARBON DIOXIDE 15.5 MMOL/L (24-32); TOTAL PROTEIN 5.5 G/DL (6.4-8.2); eGFR 49 ML/MIN
[2018-09-26 07:31] LABS: BASOPHILS % (AUTO) 0.5 % (0-1); EOSINOPHILS # (AUTO) 0.5 X10'3 (0-0.9); EOSINOPHILS % (AUTO) 7.1 % (0-6); HEMATOCRIT 31.2 % (42.0-52.0); HEMOGLOBIN 10.3 g/dl (14.0-17.9); LYMPHOCYTES % (AUTO) 29.6 % (21-51); MEAN CORPUSCULAR HEMOGLOBIN 34.7 PG (27.0-31.0); MEAN CORPUSCULAR HGB CONC 32.9 g/dL (33.0-36.5); MEAN CORPUSCULAR VOLUME 105.5 FL (78-98); MONOCYTES # (AUTO) 0.5 X10'3 (0-0.9); MONOCYTES % (AUTO) 6.8 % (2-12); NEUTROPHILS # (AUTO) 3.8 X10'3 (1.8-7.7); PLATELET COUNT 244 X10'3 (140-440); RED BLOOD COUNT 2.96 X10'6 (4.70-6.10); RED CELL DISTRIBUTION WIDTH 18.3 % (11.5-14.5); WHITE BLOOD COUNT 6.8 X10'3 (4.5-11.0)
[2018-09-26] MEDS: levetiracetam 250mg tablet PO SCH (08:00)
[2018-09-26] MEDS: lactobacillus rhamnosus 10,000 MMU CELLS/CAPSULE PO SCH ×2 (08:04→20:25)
[2018-09-26] MEDS: calcium carbonate 500mg tablet PO SCH ×3 (08:04→17:31)
[2018-09-26] MEDS: levoTHYROXINE 75mcg tablet PO SCH (08:04)
[2018-09-26] MEDS: pantoprazole 40mg Tablet.DR PO SCH (08:04)
[2018-09-26] MEDS: heparin, porcine 5000 units/ml vial SQ SCH ×2 (08:05→20:25)
[2018-09-26] MEDS: CefTRIAXone 2gm/D5W 50ml 50 ML IV SCH (08:05)
[2018-09-26] MEDS: sodium chloride 0.45% 1,000 ML IV SCH (09:13)
[2018-09-26 11:00] VITALS: BP 129/70
[2018-09-26] MEDS: sodium bicarbonate 650mg tablet PO SCH ×2 (14:50→20:25)
[2018-09-26 15:00] VITALS: BP 124/74
[2018-09-26] MEDS: metroNIDAZOLE 500mg tablet PO SCH ×2 (17:31→23:51)
[2018-09-26 18:00] VITALS: BP 134/74
--- NOTE | 2018-09-26 18:00 | NUR ---
Problems reprioritized. Patient report given, questions answered & plan of care reviewed with Katrina SANTA.
--- NOTE | 2018-09-26 18:20 | NUR ---
Patient in room PCU 3011. I have received report from Luna SANTA and had the opportunity to ask questions and assume patient care.
[2018-09-26] MEDS: atorvastatin 10mg tablet PO SCH (20:25)
[2018-09-26] MEDS: sertraline 50mg tablet PO SCH (21:00)
[2018-09-26 23:00] VITALS: BP 135/78
[2018-09-27 03:00] VITALS: BP 137/79
--- NOTE | 2018-09-27 06:35 | NUR ---
Problems reprioritized. Patient report given, questions answered & plan of care reviewed with Adriana SANTA.
--- NOTE | 2018-09-27 06:37 | NUR ---
RECEIVED REPORT FROM CASANDRA SANTA
[2018-09-27 06:51] LABS: BASOPHILS % (AUTO) 0.4 % (0-1); EOSINOPHILS # (AUTO) 0.5 X10'3 (0-0.9); EOSINOPHILS % (AUTO) 7.3 % (0-6); HEMATOCRIT 31.2 % (42.0-52.0); HEMOGLOBIN 10.6 g/dl (14.0-17.9); LYMPHOCYTES # (AUTO) 1.7 X10'3 (1.1-4.8); LYMPHOCYTES % (AUTO) 25.4 % (21-51); MEAN CORPUSCULAR HEMOGLOBIN 35.3 PG (27.0-31.0); MEAN CORPUSCULAR HGB CONC 34.2 g/dL (33.0-36.5); MEAN CORPUSCULAR VOLUME 103.4 FL (78-98); MEAN PLATELET VOLUME 8.3 FL (7.4-10.4); MONOCYTES # (AUTO) 0.4 X10'3 (0-0.9); MONOCYTES % (AUTO) 5.8 % (2-12); NEUTROPHILS # (AUTO) 4.2 X10'3 (1.8-7.7); NEUTROPHILS % (AUTO) 61.1 % (42-75); PLATELET COUNT 254 X10'3 (140-440); RED BLOOD COUNT 3.01 X10'6 (4.70-6.10); RED CELL DISTRIBUTION WIDTH 18.2 % (11.5-14.5); WHITE BLOOD COUNT 6.8 X10'3 (4.5-11.0)
[2018-09-27 07:01] VITALS: BP 136/75
[2018-09-27 07:07] LABS: ALANINE AMINOTRANSFERASE 20 U/L (12-78); ALBUMIN 2.4 G/DL (3.4-5.0); ALBUMIN/GLOBULIN RATIO 0.8 (1.1-1.5); ALKALINE PHOSPHATASE 116 IU/L (46-116); ANION GAP 11 (8-16); ASPARTATE AMINO TRANSFERASE 12 U/L (10-37); BILIRUBIN,TOTAL 0.8 MG/DL (0.1-1.0); BLOOD UREA NITROGEN 6 MG/DL (7-18); BUN/CREATININE RATIO 4.9 (5.4-32.0); CALCIUM 7.2 MG/DL (8.5-10.1); CHLORIDE 118 MMOL/L (99-107); CREATININE 1.22 MG/DL (0.60-1.10); GLUCOSE 92 MG/DL (70-104); MAGNESIUM 1.4 MG/DL (1.5-2.4); POTASSIUM 3.4 MMOL/L (3.5-5.1); SODIUM 147 MMOL/L (135-145); TOTAL CARBON DIOXIDE 18.3 MMOL/L (24-32); TOTAL PROTEIN 5.3 G/DL (6.4-8.2); eGFR 57 ML/MIN
[2018-09-27] MEDS: pantoprazole 40mg Tablet.DR PO SCH (07:32)
[2018-09-27] MEDS: sodium bicarbonate 650mg tablet PO SCH ×3 (07:32→20:37)
[2018-09-27] MEDS: levoTHYROXINE 75mcg tablet PO SCH (07:32)
[2018-09-27] MEDS: CefTRIAXone 2gm/D5W 50ml 50 ML IV SCH (07:32)
[2018-09-27] MEDS: metroNIDAZOLE 500mg tablet PO SCH ×2 (07:32→17:22)
[2018-09-27] MEDS: calcium carbonate 500mg tablet PO SCH ×3 (07:32→17:22)
[2018-09-27] MEDS: heparin, porcine 5000 units/ml vial SQ SCH ×2 (07:33→20:37)
[2018-09-27] MEDS: lactobacillus rhamnosus 10,000 MMU CELLS/CAPSULE PO SCH ×2 (07:34→20:37)
[2018-09-27] MEDS ORDERED: potassium Cl 20 mEq SR tablet PO PRN (09:45)
[2018-09-27] MEDS ORDERED: potassium CL 10mEq/100ml bag 100 ML IV PRN (09:45)
[2018-09-27] MEDS: magnesium Cl slow-release 64mg tablet PO PRN ×2 (09:59→20:36)
[2018-09-27] MEDS: potassium Cl 20 mEq SR tablet PO PRN (09:59)
[2018-09-27 11:00] VITALS: BP 110/58
[2018-09-27 13:23] LABS: MAGNESIUM 1.4 MG/DL (1.5-2.4); POTASSIUM 3.7 MMOL/L (3.5-5.1)
[2018-09-27 15:00] VITALS: BP 123/60
[2018-09-27 19:00] VITALS: BP 135/75
[2018-09-27] MEDS: atorvastatin 10mg tablet PO SCH (20:37)
[2018-09-27] MEDS: sertraline 50mg tablet PO SCH (20:52)
[2018-09-27] MEDS ORDERED: warfarin 1mg tablet PO ONE (21:00)
[2018-09-27 23:00] VITALS: BP 119/64
[2018-09-28] MEDS: metroNIDAZOLE 500mg tablet PO SCH ×2 (00:01→08:37)
[2018-09-28 03:00] VITALS: BP 112/72
[2018-09-28 06:00] VITALS: BP 142/87
--- NOTE | 2018-09-28 06:23 | NUR ---
Problems reprioritized. Patient report given, questions answered & plan of care reviewed with Nicky SANTA.
[2018-09-28 07:26] LABS: BASOPHILS % (AUTO) 0.6 % (0-1); EOSINOPHILS # (AUTO) 0.3 X10'3 (0-0.9); EOSINOPHILS % (AUTO) 4.9 % (0-6); HEMATOCRIT 31.5 % (42.0-52.0); HEMOGLOBIN 10.6 g/dl (14.0-17.9); LYMPHOCYTES # (AUTO) 1.8 X10'3 (1.1-4.8); LYMPHOCYTES % (AUTO) 26.7 % (21-51); MEAN CORPUSCULAR HEMOGLOBIN 34.8 PG (27.0-31.0); MEAN CORPUSCULAR HGB CONC 33.7 g/dL (33.0-36.5); MEAN CORPUSCULAR VOLUME 103.4 FL (78-98); MEAN PLATELET VOLUME 8.5 FL (7.4-10.4); MONOCYTES # (AUTO) 0.4 X10'3 (0-0.9); MONOCYTES % (AUTO) 6.2 % (2-12); NEUTROPHILS # (AUTO) 4.1 X10'3 (1.8-7.7); NEUTROPHILS % (AUTO) 61.6 % (42-75); PLATELET COUNT 267 X10'3 (140-440); RED BLOOD COUNT 3.05 X10'6 (4.70-6.10); RED CELL DISTRIBUTION WIDTH 18.2 % (11.5-14.5); WHITE BLOOD COUNT 6.7 X10'3 (4.5-11.0)
[2018-09-28 07:43] LABS: ALANINE AMINOTRANSFERASE 25 U/L (12-78); ALBUMIN 2.5 G/DL (3.4-5.0); ALBUMIN/GLOBULIN RATIO 0.9 (1.1-1.5); ALKALINE PHOSPHATASE 118 IU/L (46-116); ANION GAP 9 (8-16); ASPARTATE AMINO TRANSFERASE 22 U/L (10-37); BLOOD UREA NITROGEN 7 MG/DL (7-18); BUN/CREATININE RATIO 5.8 (5.4-32.0); CALCIUM 7.4 MG/DL (8.5-10.1); CHLORIDE 115 MMOL/L (99-107); CREATININE 1.21 MG/DL (0.60-1.10); GLUCOSE 98 MG/DL (70-104); MAGNESIUM 1.5 MG/DL (1.5-2.4); POTASSIUM 3.6 MMOL/L (3.5-5.1); SODIUM 145 MMOL/L (135-145); TOTAL CARBON DIOXIDE 21.4 MMOL/L (24-32); TOTAL PROTEIN 5.4 G/DL (6.4-8.2); eGFR 58 ML/MIN
[2018-09-28] MEDS: CefTRIAXone 2gm/D5W 50ml 50 ML IV SCH (08:36)
[2018-09-28] MEDS: levoTHYROXINE 75mcg tablet PO SCH (08:36)
[2018-09-28] MEDS: pantoprazole 40mg Tablet.DR PO SCH (08:37)
[2018-09-28] MEDS: heparin, porcine 5000 units/ml vial SQ SCH (08:37)
[2018-09-28] MEDS: calcium carbonate 500mg tablet PO SCH ×2 (08:37→13:28)
[2018-09-28] MEDS: sodium bicarbonate 650mg tablet PO SCH ×2 (08:37→13:28)
[2018-09-28] MEDS: lactobacillus rhamnosus 10,000 MMU CELLS/CAPSULE PO SCH (08:37)
[2018-09-28] MEDS: potassium Cl 20 mEq SR tablet PO PRN (10:40)
[2018-09-28 10:54] VITALS: BP 128/74
[2018-09-28] MEDS ORDERED: METR-159 PO (10:54)
[2018-09-28] MEDS ORDERED: CIPR-230 PO (10:54)
[2018-09-28 15:25] VITALS: BP 108/63
--- NOTE | 2018-09-28 15:28 | NUR ---
Initial: Pt admit w/ hx diarrhea past 7-10 days and low electrolytes requiring replacement. CT shows colitis. 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 DIMITRI provided pt w/ written/verbal diarrhea ed enforcing soluble fiber options on higher stool days. Pt PO 100% meals meeting needs. Pt Ca low as well on admit and resulting vitamin D levels low as well. DIMITRI d/w RN for vitamin D per MD approval. MCV 103.4; pt received monthly B12 injections for anemia per prior admit note. Will continue to monitor. Rec: 1. continue heart healthy diet per MD 2. vitamin D per MD approval 3. weekly wts if diarrhea persists Addendum: 09/28/18 at [address] Amended: Links added.
--- NOTE | 2018-09-28 16:31 | NUR ---
Patient was discharged home at 1630. Rx was delivered by [facility], discharge packet was reviewed before signing and being sent with patient and all belongings. PIV was removed with cannula intact and telemetry monitoring was discontinued. Patient was picked up by transport and wheeled down leaving via transport company.
[2018-09-28] MEDS ORDERED: warfarin 4mg tablet PO ONE (21:00)
== END 2018-09-28 16:30 | disposition home or self-care (01) | DRG 463 ==
LOC: ER 11:02 → PCU 3S 14:51 → CMPBEDREQ 19:26
PROVIDERS: ADMIT Family Medicine; ATTEND Family Medicine
PROC: 3E0234Z Introduction of Serum, Toxoid and Vaccine into Muscle, Percutaneous Approach (ICD-10-PCS; principal; 2018-09-24)
DX: N39.0 Urinary tract infection, site not specified (principal); E87.2 Acidosis; D68.8 Other specified coagulation defects; E83.51 Hypocalcemia; J44.9 Chronic obstructive pulmonary disease, unspecified; E83.42 Hypomagnesemia; E03.9 Hypothyroidism, unspecified; E78.00 Pure hypercholesterolemia, unspecified; E78.5 Hyperlipidemia, unspecified; F17.210 Nicotine dependence, cigarettes, uncomplicated; G89.29 Other chronic pain; I10 Essential (primary) hypertension; K52.9 Noninfective gastroenteritis and colitis, unspecified; I25.10 Atherosclerotic heart disease of native coronary artery without angina pectoris; T45.515A Adverse effect of anticoagulants, initial encounter; E87.6 Hypokalemia; Z88.8 Allergy status to other drugs, medicaments and biological substances; Z88.6 Allergy status to analgesic agent; Z88.0 Allergy status to penicillin; Z91.013 Allergy to seafood; Z23 Encounter for immunization; Z86.718 Personal history of other venous thrombosis and embolism; Z90.49 Acquired absence of other specified parts of digestive tract; Y92.89 Other specified places as the place of occurrence of the external cause
CPT/HCPCS: 36415; 74176; 80053; 81001; 82306; 82310; 82330; 83605; 83735; 84100; 84132; 84443; 85025; 85610; 87077; 87081; 87088; 87186; 90732; 93005; 96365; 96375; 99291; G0378; J0610; J0696; J1644; J3475; J3480; J3490; J7030

== ENCOUNTER 2020-10-12 17:39 | Emergency (ER) | payer MEDICARE, MEDICAID ==
[~2020-10-12] VITALS: Ht 157.5 cm; Wt 63.6 kg
[~2020-10-12 17:39] MED LIST changes: -ATR0.5NEB NEB; -CALC-1051 PO; +COU1T PO; -LOPE2CAP PO; -PANT40TA4 PO; +PANT40TA54 PO; +SERT-434 PO; -SERT100T10 PO; +SIMV-42 PO; -SIMV20TA5 PO; -TRAM50TA2 PO
[2020-10-12 17:52] VITALS: BP 130/72
== END 2020-10-12 19:35 | disposition home or self-care (01) ==
LOC: ER 17:41
DX: M79.671 Pain in right foot (principal); I25.10 Atherosclerotic heart disease of native coronary artery without angina pectoris; E78.00 Pure hypercholesterolemia, unspecified; J44.9 Chronic obstructive pulmonary disease, unspecified; E03.9 Hypothyroidism, unspecified; Z90.49 Acquired absence of other specified parts of digestive tract; Z98.890 Other specified postprocedural states; Z88.5 Allergy status to narcotic agent; Z88.0 Allergy status to penicillin; Z79.899 Other long term (current) drug therapy
CPT/HCPCS: 73630; 99283